=== PATIENT | male | born 1935 | race Caucasian/White ===

== ENCOUNTER 2017-10-04 10:23 | Emergency (ER) | payer BC ==
[~2017-10-04] VITALS: Ht 182.9 cm; Wt 74.8 kg
[~2017-10-04 10:23] MED LIST: CEFA500C2 PO; GLC/500 PO; GLIM1TAB2 PO; METO100T44 PO; MULT-506 PO; SIMV40TA2 PO
[2017-10-04 10:29] VITALS: TEMP 36.9; Ht 182.9 cm; Wt 74.8 kg
[2017-10-04] MEDS ORDERED: ASPI81TA28 PO (11:09)
[2017-10-04] MEDS ORDERED: NTRGSL/4 UT (11:09)
[2017-10-04] MEDS ORDERED: LISI10TA PO (11:09)
[2017-10-04] MEDS ORDERED: ANTIBIOTIC PO (11:11)
--- NOTE | 2017-10-04 11:34 | DIAGNOSTIC IMAGING REPORT ---
CT HEAD WITHOUT CONTRAST (CT) CLINICAL HISTORY: Head pain. Trauma. Closed head injury. COMPARISON STUDY: No previous studies for comparison. TECHNIQUE: Axial CT of the brain is performed from the vertex to the skull base. IV contrast was not administered for this examination. A dose lowering technique was utilized adhering to the principles of ALARA. CT DOSE: 614.27 mGy.cm FINDINGS: No intra or extra-axial mass lesions are visualized. There is no CT evidence of acute cortical infarction. There is no evidence of midline shift. There is no acute hemorrhage. No calvarial fractures are visualized. There are patchy white matter hypodensities likely on a small vessel basis. There is no evidence of pathologic ventricular dilatation. There is no evidence of acute sinusitis. There is a left frontal scalp hematoma and there is left periorbital edema. IMPRESSION: 1. No acute intracranial findings 2. Left frontal scalp hematoma with left periorbital edema Electronically signed by: Brady Cano M.D. 10/04/2017 11:33 AM Dictated Date/Time: 10/04/2017 11:32 AM
[2017-10-04] MEDS ORDERED: DIPHTHERIA/TETANUS/PERTUSSIS 0.5 ML SYR/VIAL IM. ONE (12:00)
[2017-10-04 12:05] VITALS: BP 173/82; PULSE 80; O2SAT 96
--- NOTE | 2017-10-05 12:47 | EMERGENCY ROOM VISIT NOTE ---
History Report prepared by Bryon: [facility] More Under the Supervision of: Dr. Jaqueline Decker M.D. First contact with patient: 10:47 Chief Complaint: FALL Stated Complaint: FELL WITH CUTS AND BRUISES History of Present Illness The patient is an 82 year old male who presents to the Emergency Room with complaints of an episode of a fall that occurred this morning. The patient states he tripped over the stairs and fell. He states his fall is due to the boot on his left foot. The patient reports when he fell he hit his head. He notes that he has multiple scrapes on his arms and legs. The patient denies abdominal pain, head pain, neck pain, back pain, loss of consciousness, pain with deep breathing, and chest discomfort. The patient states he has a history of diabetes and a heart attack 11 years ago. He notes he had stents placed in his heart and was on Coumadin, but no longer is. He notes that he takes a baby Aspirin each day. The patient states that he is unsure if he is up to date on his Tetanus shot. Source of History: patient Onset: this morning Position: arm (bilateral), leg (bilateral) Quality: other (fall, scrapes) Timing: other (episode) Associated Symptoms: No LOC, No neck pain, No chest pain, No abdominal pain , No back pain Note: The patient denies head pain and pain with deep breathing. Review of Systems See HPI for pertinent positives & negatives. A total of 10 systems reviewed and were otherwise negative. Past Medical & Surgical Medical Problems: (1) Osteomyelitis of left foot Family History No pertinent family history Social History Smoking Status: Never Smoker Drug Use: none Marital Status: Housing Status: lives with significant other Occupation Status: retired Current/Historical Medications Scheduled Aspirin (Aspirin Ec), 81 MG PO DAILY Glimepiride (Glimepiride), 1 MG PO DAILY Lisinopril (Prinivil), 10 MG PO DAILY Metformin Hcl (Glucophage), 500 MG PO DAILY Metoprolol Succ (Toprol Xl) (Toprol-Xl ), 150 MG PO BID Multivitamin (Multivitamin), 1 TAB PO DAILY Nitroglycerin (Nitrostat), 0.4 MG UT PRN Simvastatin (Zocor), 40 MG PO QPM [Antibiotic ], 1 TAB PO BID Allergies Coded Allergies: Aminoglycosides (Verified Allergy, Mild, DERMATITIS, 10/04/17) Bacitracin (Verified Allergy, Mild, DERMATITIS, 10/04/17) Neomycin (Verified Allergy, Mild, DERMATITIS, 10/04/17) Polymyxin B (Verified Allergy, Mild, DERMATITIS, 10/04/17) Physical Exam Vital Signs Date Time Temp Pulse Resp B/P (MAP) Pulse Ox O2 Delivery O2 Flow Rate FiO2 10/04/17 12:05 80 18 173/82 96 Room Air 10/04/17 10:29 36.9 90 18 181/83 96 Room Air Physical Exam Vital signs reviewed. General: Well-appearing , in no significant distress. HEENT: No scleral icterus, PERRLA, neck supple. Hematoma above the left eyebrow with a small abrasion. Cardiovascular: Regular rate and rhythm, no extra sounds. Pulmonary: Clear to auscultation bilaterally, normal work of breathing. Abdomen: Soft, nontender, nondistended, positive bowel sounds. Musculoskeletal: Atraumatic, no significant deformity. Cervical, thoracic and lumbar spine are palpated, nontender, no step-off or deformity appreciated. Neurologic: Patient awake alert and oriented x 3, full strength in all 4 extremities. Skin: Warm, dry, no rash. No significant laceration. Multiple abrasions to the left anterior knee. No significant swelling or deformity. Abrasions to the first and second MCPs of the left hand. Medical Decision & Procedures ER Provider Diagnostic Interpretation: Radiology results as stated below per my review and radiologist interpretation: CT HEAD WITHOUT CONTRAST (CT) CLINICAL HISTORY: Head pain. Trauma. Closed head injury. COMPARISON STUDY: No previous studies for comparison. TECHNIQUE: Axial CT of the brain is performed from the vertex to the skull base. IV contrast was not administered for this examination. A dose lowering technique was utilized adhering to the principles of ALARA. CT DOSE: 614.27 mGy.cm FINDINGS: No intra or extra-axial mass lesions are visualized. There is no CT evidence of acute cortical infarction. There is no evidence of midline shift. There is no acute hemorrhage. No calvarial fractures are visualized. There are patchy white matter hypodensities likely on a small vessel basis. There is no evidence of pathologic ventricular dilatation. There is no evidence of acute sinusitis. There is a left frontal scalp hematoma and there is left periorbital edema. IMPRESSION: 1. No acute intracranial findings 2. Left frontal scalp hematoma with left periorbital edema Electronically signed by: Brady Cano M.D. 10/04/2017 11:33 AM Dictated Date/Time: 10/04/2017 11:32 AM Medications Administered Medications (Trade) Dose Ordered Sig/Lisha Route Start Time Stop Time Status Last Admin Dose Admin Diphtheria/ Pertussis/Tetanus Vacc (Adacel Inj) 0.5 ml ONCE ONCE IM. 10/04/17 12:00 10/04/17 12:01 DC 10/04/17 11:59 0.5 ML ED Course 1057: Past medical records reviewed. The patient was evaluated in room C1B. A complete history and physical examination was performed. 1200: Ordered Adacel Inj 0.5 ml IM. 1201: Upon reevaluation, the patient appeared to have improvement of his symptoms. I discussed findings with him. He verbalized agreement of the treatment plan. The patient was discharged home. Medical Decision Differential diagnosis: Intracranial injury, cervical spine injury, intrathoracic injury, intra- abdominal injury, musculoskeletal injury. This patient was evaluated and appeared to be in no significant distress. CT scan of the head was performed and is negative for acute intracranial abnormality. Patient had several abrasions and a hematoma to left forehead. Nursing staff cleanse the wounds and dressed them appropriately. Patient's tetanus status was updated with Adacel 0.5 mL IM. Patient was discharged to the care of his and will follow up with his PCP for reevaluation. He will return to the ED for worsening of symptoms or any medical concerns. Medication Reconcilliation Current Medication List: was personally reviewed by me Blood Pressure Screening Patient's blood pressure: Elevated blood pressure Blood pressure disposition: Referred to PCP Impression Primary Impression: Closed head injury Additional Impressions: Multiple abrasions Fall Scribe Attestation The scribe's documentation has been prepared under my direction and personally reviewed by me in its entirety. I confirm that the note above accurately reflects all work, treatment, procedures, and medical decision making performed by me. Departure Information Dispostion Home / Self-Care Referrals Christiano Lobato M.D. (PCP) Forms HOME CARE DOCUMENTATION FORM, IMPORTANT VISIT INFORMATION Patient Instructions My [facility] Additional Instructions Diagnosis: Closed head injury, multiple abrasions, fall Please read head injury handout. Wash wounds with warm water and a mild soap once daily and apply an antibiotic dressing. Follow-up with your primary care physician this week for reevaluation. Return to the ED for worsening of symptoms or any medical concerns. Problem Qualifiers
== END 2017-10-04 12:19 | disposition home or self-care (01) ==
LOC: C.EDB 10:24 → C.EDC 12:19
DX: S00.12XA Contusion of left eyelid and periocular area, initial encounter (principal); W18.09XA Striking against other object with subsequent fall, initial encounter; E11.9 Type 2 diabetes mellitus without complications; I25.2 Old myocardial infarction; Z95.5 Presence of coronary angioplasty implant and graft; Z79.82 Long term (current) use of aspirin; Z79.84 Long term (current) use of oral hypoglycemic drugs; Z79.899 Other long term (current) drug therapy; Z88.8 Allergy status to other drugs, medicaments and biological substances; S80.212A Abrasion, left knee, initial encounter; S60.512A Abrasion of left hand, initial encounter; Z23 Encounter for immunization

== ENCOUNTER 2018-07-19 10:52 | Inpatient (IN) ==
--- NOTE | 2018-07-19 12:07 | Emergency Department Note ---
ED Provider Note CHIEF COMPLAINT: Upper back and chest pain HISTORY OF PRESENTING ILLNESS: This is a 83-year-old male with past medical history for coronary artery disease status post stenting, hypertension, hyperlipidemia, type 2 diabetes, history of prostate cancer, who presents to the emergency department by private vehicle with his with complaint of left- sided chest pain and right-sided upper back pain that has been ongoing for the past 4 to 5 days. He describes the pain as constant, worse with movements and lying flat, states it feels like a muscle cramp, and rates the pain as 5/10. He has been taking Tylenol and using BenGay topically to the areas of pain, which he reports does help, but states that he continues to have pain. He denies any shortness of breath, cough, hemoptysis, dizziness or syncope. He has been evaluated numerous times over the past week, starting with a fall on 07/11 and head injury. He reports that his head laceration is healing well and he has been doing well since the fall, but this pain has been getting progressively worse. He does have bruising to both shoulders and arms, but denies any bruising to his chest, abdomen, or back. He denies any abdominal pain, nausea or vomiting, diarrhea, urinary complaints, or unusual rash. REVIEW OF SYSTEMS: A complete 10 point review of systems was reviewed with the patient with pertinent positives and negatives as per history of present illness. All else were negative. PAST MEDICAL HISTORY: Reviewed in the chart as listed above in the HPI SOCIAL HISTORY: Lives at home with his , denies tobacco use, admits to occasional alcohol use ALLERGIES: Reviewed in chart PHYSICAL EXAM: CONSTITUTIONAL: Pleasant and cooperative. No acute distress. Well appearing and well nourished. HEENT: Normocephalic. Laceration noted to the scalp, appears to be healing well with no signs of infection. PERRL, EOMI. NECK: Supple, full active range of motion without discomfort. No midline tenderness to palpation of the cervical spine. RESPIRATORY: Clear to auscultation bilaterally with no wheezing, crackles, rhonchi or stridor. Equal expansion bilaterally. CARDIOVASCULAR: Regular rate and rhythm with no murmurs, rubs or gallops. Normal peripheral perfusion. No edema. CHEST WALL: Tender to palpation in the left anterior chest, reproduces complaint. There is also tenderness to palpation in the right shoulder blade area which reproduces complaint. There is mild muscle spasm noted. There is no ecchymosis, swelling, erythema, or palpable crepitus. GASTROINTESTINAL: Soft, nontender, nondistended. No palpable masses or HSM. Bowel sounds present in all quadrants. No CVA tenderness bilaterally. BACK: There is no midline tenderness to palpation of the thoracic or lumbar spine. There is right-sided paraspinous muscle tenderness of the thoracic region along the shoulder blade. MUSCULOSKELETAL: Full range of motion of all joints without discomfort. INTEGUMENTARY: Healing ecchymosis on the right shoulder and left upper arm with scabbed over abrasions, nontender to palpation. No evidence of erythema, warmth, discharge, or streaking. No rash or other significant dermatologic conditions noted. NEUROLOGIC: Alert and oriented X 4 with normal affect. Normal strength and sensation in all 4 extremities. Normal speech. Normal gait observed. ED COURSE AND MEDICAL DECISION MAKING: CC: Patient presenting with complaint of upper back and chest pain DIFFERENTIAL DIAGNOSIS: Includes, but not limited to musculoskeletal pain, muscle spasm, costochondritis, rib fracture, rib contusion, vertebral fracture, pneumothorax, pulmonary contusion, acute coronary syndrome, pneumonia, among others. INTERPRETATION OF LABS: No leukocytosis, mild anemia [], normal platelets, hyponatremia and hypochloremia with hyperglycemia, no other significant electrolyte abnormalities, normal renal function. IMAGING: CT chest wo con CLINICAL HISTORY: Chest pain status post trauma COMPARISON STUDY: No previous studies for comparison. CT DOSE: 295.71 mGy.cm TECHNIQUE: CT of the thorax was performed from the thoracic inlet to the lung bases. Images are reviewed in the axial, sagittal, and coronal planes. IV contrast was not administered for this examination. A dose lowering technique was utilized adhering to the principles of ALARA. FINDINGS: Thyroid: Imaged portions of the thyroid gland are normal in appearance. Thoracic aorta: The ascending thoracic aorta measures 33 mm. There are no periaortic hematoma is identified. Heart: There are coronary artery calcifications. There is no significant pericardial effusion. Lungs and pleural spaces: There is no pneumothorax. There are no pleural effusions. There is no evidence of focal pulmonary consolidation. There are scattered bilateral solid pulmonary nodules, the largest of which measures 3 mm. In a low risk patient, no further follow-up is indicated. Mediastinum: There are borderline enlarged mediastinal lymph nodes. Yoselin: There is no evidence of pathologic hilar adenopathy given the limitations of a noncontrast study Axilla: There is no nodes of pathologic axillary lymphadenopathy Upper abdomen: There is a hiatal hernia. Skeletal structures: There are several old rib deformities. There is an age- indeterminate right fourth anterior rib fracture. There is a T4 vertebral body c ompression fracture. IMPRESSION: 1. No evidence of acute intrathoracic injury given the limitations of a noncontrast study 2. T4 vertebral body compression fracture, likely acute 3. Age-indeterminate right fourth anterior rib fracture EKG: Shows sinus rhythm the rate of 82 bpm, premature atrial complexes, inverted T waves in the anterior leads, when compared to previous EKG from 02/01/2006, appears to be improved by my interpretation. MEDICATION RECONCILIATION: I attest that I have personally reviewed the patient's current medication list. INITIAL VITAL SIGNS REVIEW: I reviewed the patient's initial vital signs and interpret them as follows: T: Afebrile; BP: Hypertensive; HR: Within normal limits; RR: Within normal limits; Pulse Ox: Within normal limits on room air. Blood pressure screening: The patient was found to have an elevated blood pressure and was referred to the inpatient hospitalist team for further management. MDM SUMMARY: Patient was evaluated at bedside, history and physical exam performed. Patient is alert and oriented, no acute distress, resting calmly in stretcher. Patient complains of right shoulder blade pain and left anterior chest wall pain, these areas are reproducible to his complaint. There is no palpable crepitus. He denies any chest pain at rest and denies any shortness of breath, nausea, dizziness, or syncope. Patient does have a remote history of coronary artery disease, given this history I did opt to perform an EKG and troponin to evaluate his complaint of left sided chest pain. Patient did have a fall about 1 week ago, CT of the chest and thoracic spine noncontrast was ordered to evaluate for fractures. Orders were also placed at bedside for baseline labs. Patient declined anything for pain at this time. Patient discussed with Dr. Bustillos, who agrees with my assessment, plan, and disposition. Labs and imaging reviewed as above, mild anemia appears to be baseline. There is mild hyponatremia, which is most likely secondary to his hyperglycemia. Troponin is elevated at 0.325, which is concerning given his complaint of chest pain. EKG was reviewed, noting sinus rhythm with PACs, and some possible ischemic changes in the anterior leads, although when compared to previous EKG it appears that this is greatly improved as he has previously had an anterior HI. Patient complained of increased pain in his chest and back after returning from CT, stating that the pain got worse when he had to lift his arms over his head. He was given a dose of IV fentanyl for his pain. Patient notes that he did not take his aspirin today, he was given a full-strength dose of chewable aspirin given the elevated troponin. CT imaging reviewed, notable for an acute T4 compression fracture and an age- indeterminate right fourth rib fracture, which I suspect are both most likely from his recent fall. Patient reassessed multiple times throughout ED stay, he has remained hemodynamically stable and reports that his pain is improved after the fentanyl. I spoke on the phone with Dr. Bowen, [facility] Hospitalist, who agrees to evaluate the patient for admission. The patient and his were updated on all results and plan for admission, they verbalized understanding and were agreeable to this plan. The patient was stable at time of admission. The chart was completed utilizing [employer] Speech voice recognition software. Grammatical errors, random word insertions, pronoun errors, and incomplete sentences are an occasional consequence of this system due to software limitations, ambient noise, and hardware issues. Any formal questions or concerns about the content, text, or information contained within the body of this dictation should be directly addressed to the nurse practitioner for clarification. Impression & Plan Elevated troponin I level, Compression fracture of T4 vertebra, Closed fracture of rib of right side Past Med/Surg History Medical History Hyponatremia (Chronic) Compression fx, thoracic spine (Acute) NSTEMI (non-ST elevated myocardial infarction) (Acute) Osteomyelitis of left foot (Chronic) Hypertension (Chronic) Hyperlipidemia (Chronic) Diabetes mellitus, type 2 (Chronic) DENIES NEUROPATHY Skin cancer (Resolved) HISTORY OF. 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 (Resolved) Closed head injury (Resolved) Multiple abrasions (Resolved) Surgical History History of cardiac cath (Resolved) 15 YEARS AGO, STENT X1, C, [place] History of tonsillectomy (Resolved) History of radical prostatectomy (Resolved) History of herniorrhaphy (Resolved) Hx of cataract surgery (Resolved) RIGHT Social History Preferred Language: Hungarian Communication Ability: Effective Beliefs That Will Affect Care: None Current Living Situation: Spouse Feels Safe at Home: Yes Smoking Status: Never smoker Second Hand Exposure: No Hx Alcohol Use: Yes Alcohol type: beer Hx Substance Use: No Results & Data Vital Signs Vital Signs - 24 hr 07/19/18 11:08 07/19/18 12:51 07/19/18 13:19 Temperature 37.2 C Temperature Source Oral Sepsis Recent Fever Within 48 Hours No Sepsis New/Unexplained Change in Mental Status No Sepsis Action Taken by Nursing No Action Required Pulse Rate 85 Pulse Rate [Apical] 83 77 Pulse Rate from SpO2 Sensor Respiratory Rate 17 22 20 Respiratory Effort / Characteristics Non-Labored Non-Labored Spontaneous Respiratory Depth Normal Normal Respiratory Pattern Regular Regular Blood Pressure 165/75 H Blood Pressure [Right Arm] 186/79 H 136/68 Blood Pressure Mean 105 Blood Pressure Mean [Right Arm] 114 90 Blood Pressure Position Sitting Pulse Oximetry 100 98 99 Oxygen Delivery Method Room Air Room Air Room Air 07/19/18 13:46 07/19/18 14:01 Temperature Temperature Source Sepsis Recent Fever Within 48 Hours Sepsis New/Unexplained Change in Mental Status Sepsis Action Taken by Nursing Pulse Rate 79 74 Pulse Rate [Apical] Pulse Rate from SpO2 Sensor 80 74 Respiratory Rate 16 17 Respiratory Effort / Characteristics Respiratory Depth Respiratory Pattern Blood Pressure 165/77 H 158/74 H Blood Pressure [Right Arm] Blood Pressure Mean 106 102 Blood Pressure Mean [Right Arm] Blood Pressure Position Pulse Oximetry 97 98 Oxygen Delivery Method Laboratory Data Result diagrams: 07/19/18 12:10 07/19/18 12:10 Lab Results 07/19/18 07/19/18 07/19/18 Range/Units 12:10 12:10 13:18 WBC 7.16 (4.8-10.8) K/uL RBC 4.00 L (4.7-6.1) M/uL Hgb 12.5 L (14.0-18.0) g/dL Hct 36.8 L (42-52) % MCV 92.0 (80-100) fL MCH 31.3 (25-34) pg MCHC 34.0 (32-36) g/dL RDW Std Deviation 43.7 (36.4-46.3) fL RDW Coeff of Alexandre 13.1 (11.5-14.5) % Plt Count 303 (130-400) K/uL MPV 9.5 (7.4-10.4) fL Immature Gran % (Auto) 0.3 % Neut % (Auto) 79.6 % Lymph % (Auto) 11.0 % [place] % (Auto) 8.4 % Eos % (Auto) 0.6 % Baso % (Auto) 0.1 % Immature Gran # (Auto) 0.02 (0.00-0.02) K/uL Neut # (Auto) 5.70 (1.4-6.5) K/uL Lymph # (Auto) 0.79 L (1.2-3.4) K/uL [place] # (Auto) 0.60 H (0.11-0.59) K/uL Eos # (Auto) 0.04 (0-0.5) K/uL Baso # (Auto) 0.01 (0-0.2) K/uL PT 11.2 (9.0-12.0) Seconds INR 1.1 (0.9-1.1) APTT 27.5 (21.0-31.0) Seconds PTT Ratio 1.0 Sodium 130 L (136-145) mmol/L Potassium 4.6 (3.5-5.1) mmol/L Chloride 96 L (98-107) mmol/L Carbon Dioxide 27 (21-32) mmol/L Anion Gap 7.0 (3-11) BUN 12 (7-18) mg/dl Creatinine 0.80 (0.6-1.4) mg/dl Est Cr Clr Drug Dosing 73.3 ml/min Est GFR ( Amer) 96.4 Est GFR (Non-Af Amer) 83.2 BUN/Creatinine Ratio 14.8 (10-20) Glucose 250 H (70-99) mg/dl Calcium 9.0 (8.5-10.1) mg/dl Troponin I 0.325 H* (0-0.045) ng/ml Specimen Hemolysis Administered Medications Discontinued Medications Aspirin (Aspirin) 324 mg PO NOW STA Stop: 07/19/18 13:49 Last Admin: 07/19/18 13:53 Dose: 324 mg Documented by: [id number] Fentanyl Citrate (Fentanyl Citrate) 50 mcg IV NOW STA Stop: 07/19/18 13:11 Last Admin: 07/19/18 13:23 Dose: 50 mcg Documented by: [id number] Discharge Plan Visit Data Chief Complaint: Back Injury/Pain Stated Complaint: MUSCLE PAIN ED Provider: Kelby Bustillos ED Midlevel Provider: Joleen Brenner Discharge Problem: Elevated troponin I level, Compression fracture of T4 vertebra, Closed fracture of rib of right side Patient Disposition: Admitted As Inpatient Condition: Good Forms Stand Alone Forms: [facility] Prescriptions Prescriptions: No Action multivitamin Tablet 1 tab PO QAM RF: 0 metoprolol tartrate 100 mg Tablet 150 mg PO BID RF: 0 aspirin [Aspir-81] 81 mg Tablet,Delayed Release (Dr/Ec) 81 mg PO DAILY RF: 0 simvastatin [Zocor] 40 mg Tablet 40 mg PO PM RF: 0 glimepiride 1 mg Tablet 1 mg PO QAM RF: 0 lisinopril 10 mg Tablet 10 mg PO DAILY RF: 0 nitroglycerin 0.4 mg Tablet, Sublingual 1 tab Sublingual UD PRN (Reason: Chest Pain) RF: 0 acetaminophen [Tylenol Extra Strength] 500 mg Tablet 1,000 mg PO Q6H PRN (Reason: Pain) RF: 0 Referrals Referrals: Christiano Lobato MD [Primary Care Provider] - Discharge Problem: Closed fracture of rib of right side Qualifiers: Encounter type: initial encounter Rib fracture type: single rib Qualified Code(s): S22.31XA - Fracture of one rib, right side, initial encounter for closed fracture
[2018-07-19 12:20] LABS: Basophils # (auto) 0.01 K/uL (0-0.2); Basophils % (auto) 0.1 %; Eosinophils # (auto) 0.04 K/uL (0-0.5); Eosinophils % (auto) 0.6 %; Hematocrit (blood only) 36.8 % (42-52); Hemoglobin 12.5 g/dL (14.0-18.0); Immature Granulocytes # (auto) 0.02 K/uL (0.00-0.02); Immature Granulocytes % (auto) 0.3 %; Lymphocytes # (auto) 0.79 K/uL (1.2-3.4); Mean Platelet Volume 9.5 fL (7.4-10.4); Monocytes % (auto) 8.4 %; Neutrophils % (auto) 79.6 %; Platelet Count 303 K/uL (130-400); RDW Coefficient of Variation 13.1 % (11.5-14.5); RDW Standard Deviation 43.7 fL (36.4-46.3); White Blood Count 7.16 K/uL (4.8-10.8)
[2018-07-19 12:38] LABS: BUN Creatinine Ratio 14.8 (10-20); Creatinine Clr Calc Pharmacy 73.3 ml/min; Est GFR (African American) 96.4; Est GFR (Non-African American) 83.2; Potassium 4.6 mmol/L (3.5-5.1)
[2018-07-19 12:43] LABS: Troponin I 0.325 ng/ml (0-0.045)
[2018-07-19] MEDS ORDERED: fentaNYL citrate 100 MCG/2 ML VIAL IV STA (13:10)
--- NOTE | 2018-07-19 13:14 | CT Scan Report ---
CT chest wo con CLINICAL HISTORY: Chest pain status post trauma COMPARISON STUDY: No previous studies for comparison. CT DOSE: 295.71 mGy.cm TECHNIQUE: CT of the thorax was performed from the thoracic inlet to the lung bases. Images are revi ewed in the axial, sagittal, and coronal planes. IV contrast was not administered for this examinatio n. A dose lowering technique was utilized adhering to the principles of ALARA. FINDINGS: Thyroid: Imaged portions of the thyroid gland are normal in appearance. Thoracic aorta: The ascending thoracic aorta measures 33 mm. There are no periaortic hematoma is iden tified. Heart: There are coronary artery calcifications. There is no significant pericardial effusion. Lungs and pleural spaces: There is no pneumothorax. There are no pleural effusions. There is no evide nce of focal pulmonary consolidation. There are scattered bilateral solid pulmonary nodules, the larg est of which measures 3 mm. In a low risk patient, no further follow-up is indicated. Mediastinum: There are borderline enlarged mediastinal lymph nodes. Yoselin: There is no evidence of pathologic hilar adenopathy given the limitations of a noncontrast stud y Axilla: There is no nodes of pathologic axillary lymphadenopathy Upper abdomen: There is a hiatal hernia. Skeletal structures: There are several old rib deformities. There is an age-indeterminate right fourt h anterior rib fracture. There is a T4 vertebral body compression fracture. IMPRESSION: 1. No evidence of acute intrathoracic injury given the limitations of a noncontrast study 2. T4 vertebral body compression fracture, likely acute 3. Age-indeterminate right fourth anterior rib fracture Electronically signed by: Brady Cano M.D. 07/19/2018 1:13 PM
--- NOTE | 2018-07-19 13:18 | CT Scan Report ---
CT thoracic spine wo con CT DOSE: CLINICAL HISTORY: Back pain status post trauma TECHNIQUE: Helical images were acquired in the transverse plane. Sagittal and coronal reformatted azalea ges were acquired. A dose lowering technique was utilized adhering to the principles of ALARA. COMPARISON STUDY: None. FINDINGS: There is a T4 compression fracture demonstrating 67% loss in height centrally. This is like ly acute. No additional acute fractures are visualized. There are no subluxations. There are no pleur al effusions. There is no pneumothorax. There are borderline enlarged mediastinal lymph nodes. IMPRESSION: 1. T4 compression fracture demonstrating 67% loss in height. Electronically signed by: Brady Cano M.D. 07/19/2018 1:17 PM
--- NOTE | 2018-07-19 13:30 | Emergency Department Note ---
ED Visit Note Patient was seen by our PA/VEST BUSHELER. I was involved in the patient's care and did evaluate the patient myself. I was involved in the care throughout the ER stay. The patient presents with rib and back pain. Work-up demonstrates a compression fracture of T4 that appears acute. No rib fracture. His EKG shows some subtle changes compared to previous EKGs however, I actually think today's EKG appears improved. Patient does have an elevation to his troponin. With the findings of the compression fracture, with the elevated troponin and his recent history, I do think a hospital stay is warranted. The hospitalist has been consulted. .
[2018-07-19] MEDS ORDERED: ASPIRIN CHEW 324 MG PO STA (13:48)
[2018-07-19 13:56] LABS: INR 1.1 (0.9-1.1); Partial Thromboplastin Time 27.5 Seconds (21.0-31.0); Prothrombin Time 11.2 Seconds (9.0-12.0)
--- NOTE | 2018-07-19 14:37 | History & Physical Report ---
Date of Service July 19, 2018 Assessment & Plan (1) NSTEMI (non-ST elevated myocardial infarction): Telemetry. Continue aspirin, metoprolol, statin therapy. Serial troponin enzymes. Cardiac echo. Obtain cardiology consultation. Lovenox 1 mg/kg subcutaneously every 12 hours for now Present on Admission?: Yes (2) Compression fx, thoracic spine: Supportive care. Orthopedic consultation Present on Admission?: Yes (3) Diabetes mellitus, type 2: ADA diet. Sliding-scale insulin coverage Present on Admission?: Yes (4) Hypertension: Treated with lisinopril and metoprolol Present on Admission?: Yes (5) Hyponatremia: Fluid restriction. Check serum and urine osmolarity. Serial lab studies Present on Admission?: Yes History of Present Illness Chief Complaint: Chest pain, back pain Primary Care Provider: Christiano Lobato MD 83-year-old male with a history of previous myocardial infarction with stent placement in 2005. He fell recently on July 11 suffering a right frontal forehead scalp laceration that required hiral. For the past for 5 days he has noted upper back pain and intermittent left chest discomfort that occurs both at rest and with exertion. He denies associated shortness of breath or diaphoresis. He denies palpitations. He is a poor historian. His EKG is abnormal with normal sinus rhythm, frequent PACs, septal ST elevation, septal T wave inversion. Troponin is 0.325. He may have suffered a non-STEMI. In addition, he has evidence of acute T4 compression fracture and right fourth rib fracture. He denies any recent cardiac evaluation. He is hemodynamically stable. Will be admitted for further evaluation and treatment of both the suspected non-STEMI and acute T4 compression fracture. He requests a DNR status. Allergies Allergy/AdvReac Type Severity Reaction Status Date / Time Aminoglycosides Allergy Mild DERMATITIS Verified 07/14/18 05:27 bacitracin Allergy Mild DERMATITIS Verified 07/14/18 05:27 neomycin Allergy Mild DERMATITIS Verified 07/14/18 05:27 polymyxin B Allergy Mild DERMATITIS Verified 07/14/18 05:27 Home Medications Home Medications Medication Instructions Recorded Confirmed Type aspirin [Aspir-81] 81 mg PO DAILY 12/02/17 07/19/18 History glimepiride 1 mg PO QAM 12/02/17 07/19/18 History lisinopril 10 mg PO DAILY 12/02/17 07/19/18 History metoprolol tartrate 150 mg PO BID 12/02/17 07/19/18 History multivitamin 1 tab PO QAM 12/02/17 07/19/18 History nitroglycerin 1 tab SUBLINGUAL UD PRN 12/02/17 07/19/18 History simvastatin [Zocor] 40 mg PO PM 12/02/17 07/19/18 History acetaminophen [Tylenol Extra 1,000 mg PO Q6H PRN 07/14/18 07/19/18 History Strength] Past Med/Surg History Social History Preferred Language: South Korean Communication Ability: Effective Beliefs That Will Affect Care: None Current Living Situation: Spouse Feels Safe at Home: Yes Smoking Status: Never smoker Second Hand Exposure: No Hx Alcohol Use: Yes Alcohol type: beer Hx Substance Use: No Review of Systems Review of Systems: All systems reviewed & are unremarkable except as noted in HPI & below Physical Exam Constitutional: WD/WN, vitals as above Eyes: PERRL, conjunctivae normal, anicteric sclerae ENMT: external ear and nose normal, oropharynx normal Neck: trachea midline, no thyromegaly Respiratory: normal respiratory effort, lungs clear to auscultation Cardiovascular: Bigeminy rhythm which appears to be atrial bigeminy. No audible murmurs. Gastrointestinal (Abdomen): normal bowel sounds, soft, nontender, no hepatosplenomegaly Musculoskeletal: no cyanosis or clubbing, extremities motor strength 5/5 Skin: no rashes, warm and dry Right forehead scalp wound has been stable since July 11 and is healing without incident Neurologic: CN's II-XI intact bilaterally and moves all extremities; no focal motor deficits Results & Data Vital Signs (Past 12 Hours) Vital Signs Temp Pulse Pulse Resp BP BP Pulse Ox 07/19/18 14:01 74 17 158/74 H 98 07/19/18 13:46 79 16 165/77 H 97 07/19/18 13:19 77 20 136/68 99 07/19/18 12:51 83 22 186/79 H 98 07/19/18 11:08 37.2 C 85 17 165/75 H 100 Laboratory Results 07/19/18 12:10 07/19/18 12:10
[2018-07-19] MEDS ORDERED: ONDANSETRON INJ 2 MG/ML 2 ML VIAL IV PRN (15:20)
[2018-07-19] MEDS ORDERED: NITROGLYCERIN SL 0.4 MG/TAB TAB SL PRN ×2 (15:20)
[2018-07-19] MEDS ORDERED: ENOXAPARIN 1 MG/KG SC SCH (15:20)
[2018-07-19] MEDS ORDERED: ALUMINUM/MAGNESIUM SUSP 30 ML UDC PO PRN (15:20)
--- NOTE | 2018-07-19 15:45 | XRay Report ---
XR chest 1V portable CLINICAL HISTORY: Myocardial infarction COMPARISON STUDY: 07/14/2018 FINDINGS: The cardiac and mediastinal contours are normal. There is no evidence of focal pulmonary co nsolidation. There is no evidence of failure. No pleural effusions are visualized.[ IMPRESSION: No active disease in the chest. Electronically signed by: Brady Cano M.D. 07/19/2018 3:44 PM
[2018-07-19] MEDS ORDERED: ENOXAPARIN 80 MG/0.8 ML SYR SQ SCH (16:00)
[2018-07-19 18:15] LABS: INR 1.1 (0.9-1.1); Prothrombin Time 11.2 Seconds (9.0-12.0)
[2018-07-19] MEDS: SIMVASTATIN 40 MG TAB PO SCH (20:36)
[2018-07-19] MEDS: METOPROLOL TARTRATE 100 MG TAB PO SCH (20:36)
[2018-07-20] MEDS: ACETAMINOPHEN 500 MG TAB PO PRN ×2 (04:52→23:39)
[2018-07-20] MEDS: ENOXAPARIN 80 MG/0.8 ML SYR SQ SCH ×2 (06:19→18:52)
[2018-07-20 06:57] LABS: Hematocrit (blood only) 35.1 % (42-52); Hemoglobin 12.3 g/dL (14.0-18.0); Mean Corpuscular Volume 90.7 fL (80-100); Mean Platelet Volume 9.1 fL (7.4-10.4); Platelet Count 311 K/uL (130-400); RDW Standard Deviation 42.6 fL (36.4-46.3); Red Blood Count 3.87 M/uL (4.7-6.1); White Blood Count 7.11 K/uL (4.8-10.8)
[2018-07-20 07:26] LABS: BUN Creatinine Ratio 14.9 (10-20); Calcium 8.7 mg/dl (8.5-10.1); Est GFR (African American) 104.4; Potassium 4.3 mmol/L (3.5-5.1)
[2018-07-20] MEDS: LISINOPRIL 10 MG TAB PO SCH (07:56)
[2018-07-20] MEDS: METOPROLOL TARTRATE 100 MG TAB PO SCH ×2 (07:57→20:57)
[2018-07-20] MEDS: MULTIVITAMIN TAB PO SCH (07:58)
[2018-07-20] MEDS: ASPIRIN 81 MG ECTAB PO SCH (07:58)
[2018-07-20] MEDS ORDERED: GLUCOSE 40% GEL 15 GM TUBE PO PRN (12:00)
[2018-07-20] MEDS ORDERED: GLUCOSE 10 TABS/TUBE PO PRN (12:00)
[2018-07-20] MEDS ORDERED: GLUCAGON FOR INJ 1 MG VIAL IM PRN (12:00)
[2018-07-20] MEDS ORDERED: CARBOHYDRATES FOR HYPOGLYCEMIA PO PRN (12:00)
[2018-07-20] MEDS ORDERED: DEXTROSE 50% 50 ML SYRINGE IV PRN (12:00)
--- NOTE | 2018-07-20 12:16 | Consultation Report ---
DATE OF ADMISSION: 07/19/2018 CHIEF COMPLAINT: Rib pain. HISTORY OF PRESENT ILLNESS: Fernando is delightful. He is 83, suffered a fall July 11 of this year, so about 10 days ago, suffered an injury to his scalp injury with a laceration along with rib fracture. Through the workup, it was determined he had a compression fracture of the thoracic T4 vertebrae which was verified on his CT scan. He interestingly has very minimal pain and no discomfort and no deficit. I suppose, it is new, although again using these, compression fractures are somewhat painful. His rib pain is the dominant complaint from an orthopedic standpoint. PAST MEDICAL HISTORY: Positive for hypertension, hyponatremia, diabetes, possible myocardial infarction. ALLERGIES: Listed. MEDICATIONS: Aspirin, lisinopril, metoprolol, multivitamin, nitroglycerin, Zocor. SOCIAL HISTORY: He lives at home. Speaks German. No alcohol, tobacco. REVIEW OF SYSTEMS: He denies any blurred vision, double vision, tinnitus or vertigo. Denies any chest pain in reference to his cart. Does have some rib pain. Denies shortness of breath, nausea, vomiting. OBJECTIVE: GENERAL: He is alert, oriented. VITAL SIGNS: Stable. MUSCULOSKELETAL: His scalp laceration easily visible. He has no real significant pain in the thoracic area. NEUROLOGICAL: He is neurologically intact. Vital signs also stable as stated. ABDOMEN: Soft, nontender. EXTREMITIES: Intact. IMAGES: Demonstrated acute or subacute compression fracture, T4 vertebrae. PLAN: I have ordered a back brace for him, it is called a TLSO. This may be a little bit overkill. I told the patient and his if the information security officer comes up and fits him for a brace and he feels it will be too uncomfortable and not really helpful, he can certainly decline the order for the brace. I should see him back in the office in approximately 2-3 weeks. I will check on him again tomorrow which will be 21 of July.
[2018-07-20] MEDS: INSULIN ASPART 100 UNITS/ML 3 ML PEN SC SCH ×3 (12:22→20:56)
--- NOTE | 2018-07-20 13:22 | Hospitalist Progress Note ---
Date of Service July 20, 2018 Assessment & Plan (1) NSTEMI (non-ST elevated myocardial infarction): - troponin peaked at 0.324 and trended down. Echo with EF 55%, akinesis of the distal inferoseptum and apical septum. - Continue aspirin, metoprolol, statin therapy. - Lovenox 1 mg/kg subcutaneously every 12 hours for now - cardiology consult (2) Compression fx, thoracic spine: Supportive care. Orthopedic consultation - to be fitted for brace (3) Diabetes mellitus, type 2: ADA diet. Sliding-scale insulin coverage (4) Hypertension: Treated with lisinopril and metoprolol (5) Hyponatremia: Fluid restriction. Check serum and urine osmolarity. Serial lab studies (6) Fall: 07/11 - mechanical PT/OT Sutures/hiral over scalp laceration can be removed. Subjective Mr. Goodman reports feeling more comfortable today. He is having pain around his left axillary ribs but otherwise feels ok. SR on the monitor Review of Systems Review of Systems: All systems reviewed & are unremarkable except as noted in HPI & below Results & Data Vital Signs (Past 12 Hours) Vital Signs Temp Pulse Pulse Resp BP Pulse Ox 07/20/18 11:02 37.3 C 64 20 159/75 H 97 07/20/18 08:00 71 07/20/18 07:16 36.8 C 67 18 147/70 H 99 07/20/18 06:19 64 142/65 H 07/20/18 04:00 36.6 C 70 18 179/81 H 99
--- NOTE | 2018-07-20 15:42 | Cardiology Consultation ---
Date of Consultation July 20, 2018 Assessment & Plan (1) Elevated troponin I level: Pt is an 83yo gentleman with a PMHx of HTN, PAD and CAD s/p PCI with stent placement 15 years prior who is presenting with left sided lower chest pain and back pain of many days duration. -Chest pain not in precordial area, appears to be more lower rib related. -Normal Echo, telemetry shows sinus rhythm with PACs. -EKGs with sinus rhythm and anterior t-wave inversions; NO evidence of STEMI; markedly improved compared to prior years. -Mild troponin elevation currently downtrending, likely due to stressful events surrounding this pt's presentation after mechanical fall. -Continue aspirin -Continue statin, beta maryam and RIO use. -No changes to current medication regimen required. -Followup with Cardiology office upon discharge. -Thank you for allowing us to participate in this patient's care while hospitalized. Supervising Physician Co-Signing Physician Notes Patient seen and examined and discussed with Dr. Hdez. Mr. Goodman is known to me from the outpatient setting. He has longstanding CAD with prior WI and severe LE PAD. Patient had a mechanical fall 2 weeks ago with resulting scalp laceration. Aspirin held. He returned yesterday due to persistent back, left side and chest pain keeping him from sleeping. Imaging on presentation showed rib fracture and compression fracture. ECG showed sinus rhythm with PACs and old anterior TWIs. Trop minimal elevated and down- trending. Today patient chest pain free and overall pain reasonably controlled. Echo showed preserved LV function with no new regional wall motion abnormalities. On exam well perfused with no edema. Going forward suspicion for ACS is very low. Do not feel additional cardiac testing indicated. Ok for discharge from a cardiac standpoint when other medical issues stable. Discharge back on Aspirin, statin and prior antihypertensives. History of Present Illness Reason for Consultation: Chest pain, elevated troponins Requesting Physician: Dr. Fito Bowen Attending Physician: Mingo Anthony MD History of Present Illness Pt is an 83yo gentleman with a PMHx of HTN, PAD and CAD s/p PCI with stent dipesh cement presenting with a history of left sided lower chest and back pain of many days duration. Of note pt had a mechanical fall about 2 weeks prior where he had a repaired laceration to his scalp. Imaging yesterday showed a T4 vertebral fracture and a right sided rib fracture. States he presented yesterday with the complaints of back and chest pain after having difficulty sleeping. Had no associated SOB, palpitations, diaphoresis, N/V. Currently denies chest/back pain. Allergies Allergy/AdvReac Type Severity Reaction Status Date / Time Aminoglycosides Allergy Mild DERMATITIS Verified 07/14/18 05:27 bacitracin Allergy Mild DERMATITIS Verified 07/14/18 05:27 neomycin Allergy Mild DERMATITIS Verified 07/14/18 05:27 polymyxin B Allergy Mild DERMATITIS Verified 07/14/18 05:27 Home Medications Home Medications Medication Instructions Recorded Confirmed Type aspirin [Aspir-81] 81 mg PO DAILY 12/02/17 07/19/18 History glimepiride 1 mg PO QAM 12/02/17 07/19/18 History lisinopril 10 mg PO DAILY 12/02/17 07/19/18 History metoprolol tartrate 150 mg PO BID 12/02/17 07/19/18 History multivitamin 1 tab PO QAM 12/02/17 07/19/18 History nitroglycerin 1 tab SUBLINGUAL UD PRN 12/02/17 07/19/18 History simvastatin [Zocor] 40 mg PO PM 12/02/17 07/19/18 History acetaminophen [Tylenol Extra 1,000 mg PO Q6H PRN 07/14/18 07/19/18 History Strength] Patient History Medical History Hyponatremia (Chronic) Compression fx, thoracic spine (Acute) NSTEMI (non-ST elevated myocardial infarction) (Acute) Osteomyelitis of left foot (Chronic) Hypertension (Chronic) Hyperlipidemia (Chronic) Diabetes mellitus, type 2 (Chronic) DENIES NEUROPATHY Skin cancer (Resolved) HISTORY OF. 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 Beliefs That Will Affect Care: None marital status: Current Living Situation: Spouse Other Information That Helps Us Care for You: No Feels Safe at Home: Yes Safety Concerns: Feels Safe At This Time Smoking Status: Never smoker Do You Dip or Chew Tobacco: No Second Hand Exposure: No Tobacco Cessation Education Requested by Patient: No Hx Alcohol Use: Yes Alcohol type: beer Hx Substance Use: No Review of Systems Respiratory: no dyspnea Cardiovascular: no chest pain, no palpitations and no lightheadedness Musculoskeletal: no back pain Neurologic: no headache(s) Physical Exam Physical Exam: General: Alert, oriented. Sitting up in bed. HEENT: Closed nonbleeding laceration in right frontotemporal area. Chest: Nontender to palpation especially over the ribs bilaterally. CV: RRR, Normal s1, s2. No murmurs appreciated Resp: Breath sounds clear bilaterally, no increased effort of breathing. Abdomen: Soft, nontender, nondistended. No guarding. No organomegaly appreciated. Extremities: Bruising on left knee, no edema. No calf tenderness bilaterally. DP pulses nonpalpable bilaterally. Results & Data Vital Signs (Past 12 Hours) Vital Signs Temp Pulse Pulse Resp BP Pulse Ox 07/20/18 14:33 37.2 C 64 18 134/69 96 07/20/18 11:02 37.3 C 64 20 159/75 H 97 07/20/18 08:00 71 07/20/18 07:16 36.8 C 67 18 147/70 H 99 07/20/18 06:19 64 142/65 H 07/20/18 04:00 36.6 C 70 18 179/81 H 99 Laboratory Results Laboratory Results - last 24 hr 07/19/18 07/19/18 07/19/18 16:12 16:30 17:52 WBC RBC Hgb Hct MCV MCH MCHC RDW Std Deviation RDW Coeff of Alexandre Plt Count MPV PT INR Sodium Potassium Chloride Carbon Dioxide Anion Gap BUN Creatinine Est Cr Clr Drug Dosing Est GFR ( Amer) Est GFR (Non-Af Amer) BUN/Creatinine Ratio Glucose POC Glucose 154 H Calcium Troponin I 0.324 H* Urine Osmolality 344 L 07/19/18 07/19/18 07/20/18 17:52 20:33 00:12 WBC RBC Hgb Hct MCV MCH MCHC RDW Std Deviation RDW Coeff of Alexandre Plt Count MPV PT 11.2 INR 1.1 Sodium Potassium Chloride Carbon Dioxide Anion Gap BUN Creatinine Est Cr Clr Drug Dosing Est GFR ( Amer) Est GFR (Non-Af Amer) BUN/Creatinine Ratio Glucose POC Glucose 140 H Calcium Troponin I 0.299 H* Urine Osmolality 07/20/18 07/20/18 07/20/18 06:39 06:39 06:39 WBC 7.11 RBC 3.87 L Hgb 12.3 L Hct 35.1 L MCV 90.7 MCH 31.8 MCHC 35.0 RDW Std Deviation 42.6 RDW Coeff of Alexandre 13.0 Plt Count 311 MPV 9.1 PT INR Sodium 131 L Potassium 4.3 Chloride 98 Carbon Dioxide 27 Anion Gap 6.0 BUN 10 Creatinine 0.66 Est Cr Clr Drug Dosing 89.0 Est GFR ( Amer) 104.4 Est GFR (Non-Af Amer) 90.0 BUN/Creatinine Ratio 14.9 Glucose 142 H POC Glucose Calcium 8.7 Troponin I 0.206 H* Urine Osmolality 07/20/18 07/20/18 07:07 11:05 WBC RBC Hgb Hct MCV MCH MCHC RDW Std Deviation RDW Coeff of Alexnadre Plt Count MPV PT INR Sodium Potassium Chloride Carbon Dioxide Anion Gap BUN Creatinine Est Cr Clr Drug Dosing Est GFR ( Amer) Est GFR (Non-Af Amer) BUN/Creatinine Ratio Glucose POC Glucose 152 H 163 H Calcium Troponin I Urine Osmolality Medications Administered Home Medications aspirin [Aspir-81] 81 mg PO DAILY 12/02/17 [History Confirmed 07/19/18] glimepiride 1 mg PO QAM 12/02/17 [History Confirmed 07/19/18] lisinopril 10 mg PO DAILY 12/02/17 [History Confirmed 07/19/18] metoprolol tartrate 150 mg PO BID 12/02/17 [History Confirmed 07/19/18] multivitamin 1 tab PO QAM 12/02/17 [History Confirmed 07/19/18] nitroglycerin 1 tab SUBLINGUAL UD PRN 12/02/17 [History Confirmed 07/19/18] simvastatin [Zocor] 40 mg PO PM 12/02/17 [History Confirmed 07/19/18] acetaminophen [Tylenol Extra Strength] 1,000 mg PO Q6H PRN 07/14/18 [History Confirmed 07/19/18] Active Medications Acetaminophen (Tylenol) 1,000 mg PO Q6H PRN PRN Reason: Pain Stop: 08/18/18 15:19 Last Admin: 07/20/18 04:52 Dose: 1,000 mg Documented by: Al Hydrox/Mg Hydrox/Simethicone (Maalox) 15 ml PO Q4H PRN PRN Reason: Dyspepsia Stop: 08/18/18 15:19 Aspirin (Ecotrin Ectab) 81 mg PO DAILY CARLO Stop: 08/19/18 08:59 Last Admin: 07/20/18 07:58 Dose: 81 mg Documented by: Dextrose (Dextrose 50%) 25 - 50 ml IV UD PRN; Protocol PRN Reason: Hypoglycemia Protocol Stop: 08/19/18 11:59 Enoxaparin Sodium (Lovenox) 70 mg SQ Q12H CARLO Stop: 08/19/18 05:59 Last Admin: 07/20/18 06:19 Dose: 70 mg Documented by: Glucagon (Glucagen) 1 mg IM UD PRN; Protocol PRN Reason: Hypoglycemia Protocol Stop: 08/19/18 11:59 Glucose (Glucose 40%) 15 - 30 gm PO UD PRN; Protocol PRN Reason: Hypoglycemia Protocol Stop: 08/19/18 11:59 Glucose (Dex4 Glucose) 4 - 8 tabs PO UD PRN; Protocol PRN Reason: Hypoglycemia Protocol Stop: 08/19/18 11:59 Insulin Aspart (Novolog Flexpen) 0 units SC ACHS [facility] Stop: 08/19/18 11:29 Last Admin: 07/20/18 12:22 Dose: 1 units Documented by: Lisinopril (Zestril) 10 mg PO DAILY CARLO Stop: 08/19/18 08:59 Last Admin: 07/20/18 07:56 Dose: 10 mg Documented by: Metoprolol Tartrate (Lopressor) 150 mg PO BID [facility] Stop: 08/18/18 20:59 Last Admin: 07/20/18 07:57 Dose: 150 mg Documented by: Miscellaneous (Carbohydrates For Hypoglycemia) 15 - 30 gm PO UD PRN PRN Reason: Hypoglycemia Treatment Stop: 08/19/18 11:59 Multivitamins (Multivitamin Tab) 1 tab PO QAM CARLO Stop: 08/19/18 08:59 Last Admin: 07/20/18 07:58 Dose: 1 tab Documented by: Nitroglycerin (Nitrostat) 0.4 mg SL UD PRN PRN Reason: Chest Pain Stop: 08/18/18 15:19 Ondansetron HCl (Zofran) 4 mg IV Q6H PRN PRN Reason: Nausea Stop: 08/18/18 15:19 Simvastatin (Zocor) 40 mg PO PM CARLO Stop: 08/18/18 20:59 Last Admin: 07/19/18 20:36 Dose: 40 mg Documented by:
[2018-07-20] MEDS: SIMVASTATIN 40 MG TAB PO SCH (20:58)
[2018-07-21] MEDS: METOPROLOL TARTRATE 100 MG TAB PO SCH (07:39)
[2018-07-21] MEDS: MULTIVITAMIN TAB PO SCH (07:39)
[2018-07-21] MEDS: LISINOPRIL 10 MG TAB PO SCH (07:39)
[2018-07-21] MEDS: ASPIRIN 81 MG ECTAB PO SCH (07:39)
[2018-07-21] MEDS: INSULIN ASPART 100 UNITS/ML 3 ML PEN SC SCH ×2 (07:44→12:48)
[2018-07-21 07:59] LABS: BUN Creatinine Ratio 18.6 (10-20); Calcium 8.5 mg/dl (8.5-10.1); Est GFR (African American) 105.7; Est GFR (Non-African American) 91.2; Potassium 4.2 mmol/L (3.5-5.1)
[2018-07-21] MEDS ORDERED: ENOXAPARIN INJ 40 MG/0.4 ML SYR SQ SCH (09:00)
--- NOTE | 2018-07-21 12:20 | Discharge Summary ---
Date of Service July 21, 2018 Admission HPI Per Admitting Provider 83-year-old male with a history of previous myocardial infarction with stent placement in 2005. He fell recently on July 11 suffering a right frontal forehead scalp laceration that required hiral. For the past for 5 days he has noted upper back pain and intermittent left chest discomfort that occurs both at rest and with exertion. He denies associated shortness of breath or diaphoresis. He denies palpitations. He is a poor historian. His EKG is abnormal with normal sinus rhythm, frequent PACs, septal ST elevation, septal T wave inversion. Troponin is 0.325. He may have suffered a non-STEMI. In addition, he has evidence of acute T4 compression fracture and right fourth rib fracture. He denies any recent cardiac evaluation. He is hemodynamically stable. Will be admitted for further evaluation and treatment of both the suspected non-STEMI and acute T4 compression fracture. He requests a DNR status. Principal Diagnosis Chest pain Discharge Exam Constitutional WD/WN, vitals as above Cardiovascular RRR, no murmur, no edema Gastrointestinal (Abdomen) normal bowel sounds, soft, nontender, no hepatosplenomegaly Musculoskeletal no cyanosis or clubbing, extremities motor strength 5/5 Skin no rashes, warm and dry Neurologic moves all extremities and awake Psychiatric A+Ox3, euthymic affect Discharge Data Allergies Allergy/AdvReac Type Severity Reaction Status Date / Time Aminoglycosides Allergy Mild DERMATITIS Verified 07/14/18 05:27 bacitracin Allergy Mild DERMATITIS Verified 07/14/18 05:27 neomycin Allergy Mild DERMATITIS Verified 07/14/18 05:27 polymyxin B Allergy Mild DERMATITIS Verified 07/14/18 05:27 Consultations 07/19/18 15:20 Consult Cardiology Routine Consult Orthopedic Surgery Stat Ordered Studies 07/19/18 11:57 CT chest wo con Stat CT thoracic spine wo con Stat Hospital Course (1) Elevated troponin I level: Peaked at 0.3 and trended down. May have been related to stress of patient's fall and injury. No changes on echo. Cardiology consulted and do not feel intervention or change in medications is warranted at this time as not likely true ACS. Restart ASA and continue statin and metoprolol (2) Compression fx, thoracic spine: Thoracic CT showed T4 compression fracture demonstrating 67% loss in height, CT chest w/o contrast also showed age-indeterminate right fourth anterior rib fracture. Orthopedic consultation - patient did not want to wear brace which ortho was ok with. Chest pain actually more left rib pain, possibly referred from compression fracture as no left rib fracture seen on imaging. At this point Mr. Goodman feels his pain is controlled with Tylenol. PT/OT evals ok with patient going home with continued PT/OT. (3) Diabetes mellitus, type 2: ADA diet. Sliding-scale insulin coverage (4) Hypertension: Treated with lisinopril and metoprolol (5) Hyponatremia: Na 133 today, was 128 at the time of his fall. Looking back, his sodium appears chronically on the low side. Serum osmo was 281, urine osmo was low at 344. Patient should limit fluids to only drink when thirsty and follow with outpatient provider. (6) Fall: 07/11 - mechanical PT/OT Sutures/hiral over scalp laceration removed 07/21 Total Time Total Time Spent Total Time Spent (In Minutes): greater than 30 minutes Discharge Plan Discharge Items Patient Disposition: Home - Self-Care Reason For Visit: SUSPECTED NON-STEMI, ACUTE T4 COMPRESSION FRACTURE Discharge Diagnosis: T4 compression fracture Condition: Good Discharge Goals: Decrease discomfort Activity: Resume your previous activity Activity Comment: gradually as tolerated Non-emergency contact: Primary Care Provider Call non-emergency contact if: you have any medication questions Follow-up/Referrals: Christiano Lobato MD [Primary Care Provider] - 07/28/18 11:00 am (Please, follow up at Dr. Christiano Lobato's office with his bakery assistant, Cecilia Pinzon PA-C, on FridayJuly 28 at 11:00 am. *If you need to change this appointment, call the office at [phone].) Francis Escalera MD [Physician] - 08/14/18 2:15 pm (Please, follow up at [facility] Cardiology Office with Dr. Tin Escalera on FridayAugust 14 at 2:15 pm. *The office is located in [address] of [facility]. This is the office building [facility] [email or web address]. If you need to change this appointment, call the office at [phone].) Cornelio To DO [Surgeon] - 08/07/18 10:10 am (Please, follow up at [facility] Orthopedics Office with Dr. To on FridayAugust 07 at 10:10 am. *This office is located at [address] [facility] in [place]. If you need to change this appointment, call the office at [phone].) Diet: Regular Addtl Provider Instructions: Take it easy and avoid twisting, bending or lifting. Your brace can help you avoid movements that may irritate your back. You should follow up with orthopedics in 2-3 weeks. Continue outpatient PT/OT Follow up with your primary care provider within a week and cardiology within two weeks. Your sodium level in your blood has been a bit low. Try to only drink when thirsty to limit diluting your sodium in your blood and follow up with your primary care provider about this. Call 911 if pain occurs with any of these symptoms:Loss of control over your bowels or bladder, numbness or weakness or high fever. Prescriptions: Continued multivitamin Tablet 1 tab PO QAM RF: 0 metoprolol tartrate 100 mg Tablet 150 mg PO BID RF: 0 aspirin [Aspir-81] 81 mg Tablet,Delayed Release (Dr/Ec) 81 mg PO DAILY RF: 0 simvastatin [Zocor] 40 mg Tablet 40 mg PO PM RF: 0 glimepiride 1 mg Tablet 1 mg PO QAM RF: 0 lisinopril 10 mg Tablet 10 mg PO DAILY RF: 0 nitroglycerin 0.4 mg Tablet, Sublingual 1 tab Sublingual UD PRN (Reason: Chest Pain) RF: 0 acetaminophen [Tylenol Extra Strength] 500 mg Tablet 1,000 mg PO Q6H PRN (Reason: Pain) RF: 0 Stand-Alone Forms: [facility] Discharge Orders: Discharge Order (Routine); Ordered 07/21/18 Ordered By: Joleen Lobato Admission Data Admit Date/Time: 07/19/18 14:29 Attending Provider: Mingo Anthony Admit Provider: Fito Bowen Primary Care Provider: Christiano Lobato Other Providers: Blayne Storm ; Randal Akins ; Vitaly Delgado ; Cornelio oT ; Vitaly Cruz ; Christiano Villalpando V ; Francis Leung ; Fito Bowen Service: Telemetry Other Interventions: Discharge Summary Assessment (RN) Last Done: 07/21/18 14:05 DC Date/Time DO NOT enter until pt leaves facility: 07/21/18 14:56
--- NOTE | 2018-07-24 10:38 | Coding Query ---
CODING QUERY To promote full compliance with coding requirements relating to patient care, provider participation is requested in all cases of medical coder uncertainty. Please assist us with the question(s) below: Coding Question(s): Conflicting documentation in discharge summary: Hospital Course: (1) Elevated troponin I level: Peaked at 0.3 and trended down. May have been related to stress of patient's fall and injury. No changes on echo. Cardiology consulted and do not feel intervention or change in medications is warranted at this time as not likely true ACS. Restart ASA and continue statin and metoprolol Discharge Plan: Reason For Visit: SUSPECTED NON-STEMI Please indicate below if NSTEMI was ruled out or still suspected after study. Physician's Response(s): ( ) NSTEMI ruled out ( x ) Code elevated troponin ( ) Code something else, please specify ( ) Suspected NSTEMI ( ) Other, please specify Thank you Thuy Rivera Principal Diagnosis: "that condition established after study, to be chiefly responsible for occasioning the admission of the patient to the hospital for care." Co-Existing Principal Diagnosis: "when two or more diagnoses equally meet the criteria for principal diagnosis as determined by the circumstances of admission, diagnostic work up, and/or therapy provided, and the Alphabetic Index, Tabular List, or another coding guideline does not provide sequencing direction, any one of the diagnoses may be sequenced first." "When the physician has documented what appears to be a current diagnosis in the body of the record, but has not included the diagnosis in the final diagnostic statement, the physician should be asked whether the diagnosis should be added." (Source [facility] 2 QTR90. p3-4) MIGUEL
== END 2018-07-21 14:56 | disposition home or self-care (01) | DRG 543 ==
LOC: ED 10:52 → 2S 14:29 → SUATTDRO 14:29 → 2S 15:00

== ENCOUNTER 2020-05-07 17:18 | Observation (INO) ==
[2020-05-07 18:24] LABS: Basophils # (auto) 0.01 K/uL (0-0.2); Basophils % (auto) 0.2 %; Eosinophils # (auto) 0.13 K/uL (0-0.5); Hematocrit (blood only) 40.7 % (42-52); Hemoglobin 13.4 g/dL (14.0-18.0); Immature Granulocytes # (auto) 0.01 K/uL (0.00-0.02); Immature Granulocytes % (auto) 0.2 %; Lymphocytes # (auto) 0.45 K/uL (1.2-3.4); Lymphocytes % (auto) 6.8 %; Mean Corpuscular Hemoglobin 31.2 pg (25-34); Mean Corpuscular Hgb Conc 32.9 g/dL (32-36); Mean Corpuscular Volume 94.7 fL (80-100); Mean Platelet Volume 10.3 fL (7.4-10.4); Monocytes # (auto) 0.59 K/uL (0.11-0.59); Monocytes % (auto) 8.9 %; Neutrophils # (auto) 5.44 K/uL (1.4-6.5); Neutrophils % (auto) 81.9 %; Platelet Count 252 K/uL (130-400); RDW Coefficient of Variation 14.1 % (11.5-14.5); RDW Standard Deviation 48.8 fL (36.4-46.3); White Blood Count 6.63 K/uL (4.8-10.8)
--- NOTE | 2020-05-07 18:46 | XRay Report ---
XR chest 1V portable CLINICAL HISTORY: Chest Pain COMPARISON STUDY: Chest radiograph July 19, 2018. FINDINGS: Lung volumes are diminished. There is no pneumothorax. There are small bilateral pleural ef fusions. Interstitial thickening is present. Note is made of cardiomegaly. There are mild bibasilar o pacities. IMPRESSION: 1. Interstitial thickening suggestive of pulmonary edema. An infectious process could appear similar although is considered less likely. Radiographic follow-up is recommended. 2. Small bilateral pleural effusions with bibasilar opacities. ACT 112: Negative or not required by law. Electronically signed by: Jaime Bloom M.D. 05/07/2020 6:44 PM
[2020-05-07 18:57] LABS: BUN Creatinine Ratio 19.6 (10-20); Blood Urea Nitrogen 18 mg/dl (7-18); Calcium 8.7 mg/dl (8.5-10.1); Carbon Dioxide 21 mmol/L (21-32); Chloride 98 mmol/L (98-107); Est GFR (African American) 86.6; Est GFR (Non-African American) 74.7; Glucose 220 mg/dl (70-99); NT Pro B Type Natriuretic Pept 7781 pg/ml (0-1800); Sodium 131 mmol/L (136-145); Troponin I 0.122 ng/ml (0-0.045)
[2020-05-07] MEDS ORDERED: FUROSEMIDE 40 MG/4 ML VIAL IV STA (19:14)
[2020-05-07 19:22] LABS: iSTAT Creatinine 0.6 mg/dl (0.6-1.3); iSTAT Hemoglobin 14.3 g/dl (14.0-18.0); iSTAT Ionized Calcium 1.16 mmol/l (1.12-1.32); iSTAT Potassium 4.7 mmol/L (3.3-5.0)
--- NOTE | 2020-05-07 19:49 | Emergency Department Note ---
History of Present Illness General Chief complaint: Leg Weakness, Bilateral Stated complaint: LEGS SWOLLEN Time Seen by Provider: 05/07/20 17:53 History of Present Illness Provider complaint: Leg swelling Onset (ago): day(s) 4 Location: lower extremity, left and right Maximum Pain Intensity: 0 Associated symptoms: no chest pain, no fever/chills and no shortness of breath 84-year-old female presents emergency department with his for bilateral lower extremity swelling. Patient reports his lower extremities been swollen for the last 3 to 4 days. Patient reports no history of congestive heart failure. He reports no chest pain or difficulty breathing. Patient states he thought that his swelling was due to his ulcers on his foot. He states his home health care nurse told him to come to the emergency department. Patient denies any fevers or chills. Patient does have a history of peripheral artery disease. He states he sees a vascular surgeon in [place] who was unable to stent the arteries in his lower extremities and he is scheduled to have a bypass of his lower extremities. Home Medications Medication Instructions Recorded Confirmed Type multivitamin 1 tab PO QAM 12/02/17 05/07/20 History nitroglycerin 1 tab SUBLINGUAL UD PRN 12/02/17 05/07/20 History acetaminophen [Tylenol Extra 1,000 mg PO Q6H PRN 07/14/18 05/07/20 History Strength] vit C-vit H-eiblkb-ohos ox-lutein 1 cap PO DAILY cap 09/02/18 05/07/20 History 226 mg-200 unit-5 mg-0.8 mg capsule vitamin B comp and C no.3 15 mg-10 1 cap PO DAILY 09/02/18 05/07/20 History mg-50 mg-5 mg-300 mg capsule metformin 500 mg tablet,extended 500 mg PO BID #180 tab 08/20/19 05/07/20 Rx release 24 hr metoprolol succinate 100 mg 150 mg PO BID #270 tab 08/20/19 05/07/20 Rx tablet,extended release 24 hr lisinopril 10 mg tablet 20 mg PO DAILY #180 tab 12/13/19 05/07/20 Rx glimepiride 1 mg tablet 1 mg PO QAM #90 tab 03/15/20 05/07/20 Rx simvastatin 40 mg tablet 40 mg PO DAILY #90 tab 03/20/20 05/07/20 Rx aspirin [Aspir-Low] 81 mg PO DAILY 05/07/20 05/07/20 History clopidogrel [Plavix] 75 mg PO DAILY 05/07/20 05/07/20 History diphenhydramine-acetaminophen 1 tab PO HS 05/07/20 05/07/20 History [Tylenol PM Extra Strength] Allergies Allergy/AdvReac Type Severity Reaction Status Date / Time Aminoglycosides Allergy Mild DERMATITIS Verified 05/04/20 09:39 bacitracin Allergy Mild DERMATITIS Verified 05/04/20 09:39 neomycin Allergy Mild DERMATITIS Verified 05/04/20 09:39 polymyxin B Allergy Mild DERMATITIS Verified 05/04/20 09:39 Past Med/Surg History Medical History 3-vessel coronary artery disease Acute hyponatremia 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 Cataract Closed head injury Compression fx, thoracic spine Diabetes mellitus, type 2 DENIES NEUROPATHY Foot pain Hearing decreased History of prostate cancer 15 YEARS AGO History of SCC (squamous cell carcinoma) of skin Hyperlipidemia Hypertension Hyponatremia Laceration of blood vessel of right index finger, initial encounter Non-pressure chronic ulcer of other part of left foot limited to breakdown of 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 [place] [place] History of herniorrhaphy History of radical prostatectomy History of tonsillectomy Hx of cataract surgery RIGHT Family History Father Hyperlipidemia Denies family history of Colon cancer Ovarian cancer Prostate cancer Myocardial infarction Breast cancer Social History Smoking Status: Never smoker Second Hand Exposure: No; Hx Alcohol Use: Yes Alcohol type: beer Hx Substance Use: No Preferred Language: [place]amb[place] Communication Ability: Effective Scrub Technician Required: No Beliefs That Will Affect Care: None marital status: Current Living Situation: Spouse Feels Safe at Home: Yes Assistive Devices: Glasses Review of Systems A total of 10 systems reviewed and were otherwise negative Physical Exam Vital Signs Vital Signs - 24 hr 05/07/20 17:34 05/07/20 18:23 05/07/20 18:24 Temperature 36.8 C Temperature Source Temporal Artery Scan Pulse Rate 105 H 98 H Pulse Rate from SpO2 Sensor 97 H Respiratory Rate 18 16 Respiratory Effort / Characteristics Non-Labored Spontaneous Respiratory Depth Normal Respiratory Pattern Regular Blood Pressure 131/75 121/79 Blood Pressure Mean 93 93 Blood Pressure Position Sitting Pulse Oximetry 100 96 97 Oxygen Delivery Method Room Air Room Air Sepsis Recent Fever Within 48 Hours No Sepsis New/Unexplained Change in Mental Status N/A Sepsis Action Taken by Nursing No Action Required 05/07/20 18:28 05/07/20 18:30 05/07/20 18:31 Temperature Temperature Source Pulse Rate 97 H 94 H 95 H Pulse Rate from SpO2 Sensor 98 H 101 H 97 H Respiratory Rate 17 16 16 Respiratory Effort / Characteristics Respiratory Depth Respiratory Pattern Blood Pressure 119/79 Blood Pressure Mean 92 Blood Pressure Position Pulse Oximetry 97 97 96 Oxygen Delivery Method Sepsis Recent Fever Within 48 Hours Sepsis New/Unexplained Change in Mental Status Sepsis Action Taken by Nursing 05/07/20 19:01 05/07/20 19:31 05/07/20 20:01 Temperature Temperature Source Pulse Rate 92 H 89 95 H Pulse Rate from SpO2 Sensor Respiratory Rate 16 21 16 Respiratory Effort / Characteristics Respiratory Depth Respiratory Pattern Blood Pressure 113/74 124/74 126/76 Blood Pressure Mean 87 90 92 Blood Pressure Position Pulse Oximetry 99 97 100 Oxygen Delivery Method Room Air Sepsis Recent Fever Within 48 Hours Sepsis New/Unexplained Change in Mental Status Sepsis Action Taken by Nursing 05/07/20 20:31 05/07/20 21:30 Temperature Temperature Source Pulse Rate 89 89 Pulse Rate from SpO2 Sensor Respiratory Rate 15 18 Respiratory Effort / Characteristics Respiratory Depth Respiratory Pattern Blood Pressure 124/74 Blood Pressure Mean 90 Blood Pressure Position Pulse Oximetry 98 97 Oxygen Delivery Method Room Air Sepsis Recent Fever Within 48 Hours Sepsis New/Unexplained Change in Mental Status Sepsis Action Taken by Nursing Physical Exam GENERAL: He is oriented to person, place, and time. He appears well-developed and well-nourished. He does not appear distressed. HENT: Exam performed. - Head: Normocephalic and atraumatic. - Right Ear: External ear normal. No mastoid tenderness. - Left Ear: External ear normal. No mastoid tenderness. - Mouth/Throat: The oropharynx is clear and moist. No trismus in the jaw. No dental abscesses or uvula swelling. No oropharyngeal exudate or tonsillar abs cesses. EYES: Conjunctivae and EOM are normal. Pupils are equal, round, and reactive to light. Right eye exhibits no discharge. Left eye exhibits no discharge. No scleral icterus. NECK: Normal range of motion. Neck supple. No JVD present. No spinous process tenderness present. No carotid bruit present. No rigidity. No tracheal deviation and normal range of motion present. No Brudzinski's sign and no Kernig's sign noted. CV: Normal rate, regular rhythm, normal heart sounds and intact distal pulses. 2+ pitting edema of the bilateral lower extremities. Palpable radial pulses bue. PULM/CHEST: Effort normal and breath sounds normal. No respiratory distress. No stridor. He has no wheezes. He has no rales. - Chest Wall: He exhibits no tenderness. ABD: The abdomen is soft. Bowel sounds are normal. He has no distension. No mass is present. There is no tenderness. There is no rebound, no guarding, no Lynn's sign and no tenderness at McBurney's point. Rovsig negative. MUSC/SKEL: Normal range of motion. There is no tenderness or deformity. 2+ pitting edema of the bilateral lower extremities. LYMPH: No cervical adenopathy. NEURO: He is alert and oriented to person, place, and time. He has normal strength. No cranial nerve deficit or sensory deficit. Coordination and gait normal. GCS eye subscore is 4. GCS verbal subscore is 5. GCS motor subscore is 6. Cerebellar tests wnl. SKIN: Well-healing ulcers on the bilateral lower extremities and on the left toes. PSYCH: He has a normal mood and affect. Behavior is normal. Judgment and thought content normal. Course Course 1752: The patient was evaluated in room C4. A complete history and physical exam was performed. Cardiac monitoring: An order was placed for continuous cardiac monitoring. The monitor shows a rate of 90 with sinus rhythm 1914: Vital signs stable. Labs show an elevated troponin and proBNP. Chest x- ray does show findings of congestive heart failure. Patient will be given Lasix IV [facility]ia's team has been notified. Patient no history of CHF. Administered Medications Discontinued Medications Furosemide (Furosemide 40 Mg/4 Ml Vial) 40 mg IV NOW STA Stop: 05/07/20 19:15 Last Admin: 05/07/20 19:28 Dose: 40 mg Documented by: [id number] Medical Decision Making Laboratory Data Result diagrams: 05/07/20 18:17 05/07/20 18:17 Lab Results 05/07/20 05/07/20 05/07/20 Range/Units 18:17 18:17 19:10 WBC 6.63 (4.8-10.8) K/uL RBC 4.30 L (4.7-6.1) M/uL Hgb 13.4 L (14.0-18.0) g/dL POC Hgb 14.3 (14.0-18.0) g/dl Hct 40.7 L (42-52) % POC Hct 42 (42-52) % MCV 94.7 (80-100) fL MCH 31.2 (25-34) pg MCHC 32.9 (32-36) g/dL RDW Std Deviation 48.8 H (36.4-46.3) fL RDW Coeff of Alexandre 14.1 (11.5-14.5) % Plt Count 252 (130-400) K/uL MPV 10.3 (7.4-10.4) fL Immature Gran % (Auto) 0.2 % Neut % (Auto) 81.9 % Lymph % (Auto) 6.8 % [place] % (Auto) 8.9 % Eos % (Auto) 2.0 % Baso % (Auto) 0.2 % Neut # (Auto) 5.44 (1.4-6.5) K/uL Lymph # (Auto) 0.45 L (1.2-3.4) K/uL [place] # (Auto) 0.59 (0.11-0.59) K/uL Eos # (Auto) 0.13 (0-0.5) K/uL Baso # (Auto) 0.01 (0-0.2) K/uL Immature Gran # (Auto) 0.01 (0.00-0.02) K/uL POC Sodium 130 L (135-144) mmol/L Sodium 131 L (136-145) mmol/L POC Potassium 4.7 (3.3-5.0) mmol/L Potassium (3.5-5.1) mmol/L POC Chloride 97 L (101-112) mmol/L Chloride 98 (98-107) mmol/L Carbon Dioxide 21 (21-32) mmol/L POC Total CO2 24 (24-31) mmol/L Anion Gap 12.0 H (3-11) POC Anion Gap 15.0 L (16-25) mmol/L POC BUN 17 (7-18) mg/dl BUN 18 (7-18) mg/dl Creatinine 0.94 (0.6-1.4) mg/dl POC Creatinine 0.6 (0.6-1.3) mg/dl Est Cr Clr Drug Dosing Not Reportable Est GFR ( Amer) 86.6 Est GFR (Non-Af Amer) 74.7 BUN/Creatinine Ratio 19.6 (10-20) Glucose 220 H (70-99) mg/dl POC Glucose (other) 184 H (70-99) mg/dl Calcium 8.7 (8.5-10.1) mg/dl POC Ioniz Calcium Gretta 1.16 (1.12-1.32) mmol/l Troponin I 0.122 H* (0-0.045) ng/ml NT-Pro-B Natriuret Pep 7781 H (0-1800) pg/ml COVID-19 Eval Order SARS-CoV-2, RNA, NAAT (NEGATIVE) 05/07/20 05/07/20 Range/Units 19:13 19:13 WBC (4.8-10.8) K/uL RBC (4.7-6.1) M/uL Hgb (14.0-18.0) g/dL POC Hgb (14.0-18.0) g/dl Hct (42-52) % POC Hct (42-52) % MCV (80-100) fL MCH (25-34) pg MCHC (32-36) g/dL RDW Std Deviation (36.4-46.3) fL RDW Coeff of Alexandre (11.5-14.5) % Plt Count (130-400) K/uL MPV (7.4-10.4) fL Immature Gran % (Auto) % Neut % (Auto) % Lymph % (Auto) % [place] % (Auto) % Eos % (Auto) % Baso % (Auto) % Neut # (Auto) (1.4-6.5) K/uL Lymph # (Auto) (1.2-3.4) K/uL [place] # (Auto) (0.11-0.59) K/uL Eos # (Auto) (0-0.5) K/uL Baso # (Auto) (0-0.2) K/uL Immature Gran # (Auto) (0.00-0.02) K/uL POC Sodium (135-144) mmol/L Sodium (136-145) mmol/L POC Potassium (3.3-5.0) mmol/L Potassium (3.5-5.1) mmol/L POC Chloride (101-112) mmol/L Chloride (98-107) mmol/L Carbon Dioxide (21-32) mmol/L POC Total CO2 (24-31) mmol/L Anion Gap (3-11) POC Anion Gap (16-25) mmol/L POC BUN (7-18) mg/dl BUN (7-18) mg/dl Creatinine (0.6-1.4) mg/dl POC Creatinine (0.6-1.3) mg/dl Est Cr Clr Drug Dosing Est GFR ( Amer) Est GFR (Non-Af Amer) BUN/Creatinine Ratio (10-20) Glucose (70-99) mg/dl POC Glucose (other) (70-99) mg/dl Calcium (8.5-10.1) mg/dl POC Ioniz Calcium Gretta (1.12-1.32) mmol/l Troponin I (0-0.045) ng/ml NT-Pro-B Natriuret Pep (0-1800) pg/ml COVID-19 Eval Order Covid19 IDNow [facility] SARS-CoV-2, RNA, NAAT NEGATIVE (NEGATIVE) Imaging Data Radiologist's Impression: XR chest 1V portable CLINICAL HISTORY: Chest Pain COMPARISON STUDY: Chest radiograph July 19, 2018. FINDINGS: Lung volumes are diminished. There is no pneumothorax. There are small bilateral pleural effusions. Interstitial thickening is present. Note is made of cardiomegaly. There are mild bibasilar opacities. IMPRESSION: 1. Interstitial thickening suggestive of pulmonary edema. An infectious process could appear similar although is considered less likely. Radiographic follow-up is recommended. 2. Small bilateral pleural effusions with bibasilar opacities. ACT 112: Negative or not required by law. Electronically signed by: Jaime Bloom M.D. 05/07/2020 6:44 PM Dictated: [id number]/07/[id number]: 05/07/201842 ECG Data Indication: + other (Lower extremity edema) Rate (beats per minute): 96 Rhythm: + normal sinus ECG Intervals/blocks: + Normal QRS, + Normal [place] and + Normal QT-c ECG ST segments: + Normal ST segments ECG Findings: + PVCs MDM Narrative 1753: The patient was evaluated in room C4. A complete history and physical exam was performed. Cardiac monitoring: An order was placed for continuous cardiac monitoring. The monitor shows a rate of 90 with sinus rhythm 1914: Vital signs stable. Labs show an elevated troponin and proBNP. Chest x- ray does show findings of congestive heart failure. Patient will be given Lasix IV [facility] Mejia's team has been notified. Patient no history of CHF. Impression & Plan CHF (congestive heart failure) Discharge Plan Visit Data Chief Complaint: Leg Weakness, Bilateral Stated Complaint: LEGS SWOLLEN ED Provider: Mirza Kemp Discharge Problem: CHF (congestive heart failure) Patient Disposition: Admitted As Inpatient Forms Stand Alone Forms: [facility] Prescriptions Prescriptions: No Action metformin 500 mg tablet extended release 24 hr 500 mg PO BID Qty: 180 RF: 3 metoprolol succinate 100 mg tablet extended release 24 hr 150 mg PO BID Qty: 270 RF: 3 lisinopril 10 mg tablet 20 mg PO DAILY Qty: 180 RF: 3 glimepiride 1 mg tablet 1 mg PO QAM Qty: 90 RF: 3 simvastatin [Zocor] 40 mg tablet 40 mg PO DAILY Qty: 90 RF: 3 PreserVision Lutein 226 mg-200 unit -5 mg-0.8 mg capsule 1 cap PO DAILY RF: 0 B Complex Plus Vitamin C [id number] mg capsule 1 cap PO DAILY RF: 0 aspirin [Aspir-Low] 81 mg Tablet,Delayed Release (Dr/Ec) 81 mg PO DAILY RF: 0 diphenhydramine-acetaminophen [Tylenol PM Extra Strength] 25-500 mg Tablet 1 tab PO HS RF: 0 clopidogrel [Plavix] 75 mg tablet 75 mg PO DAILY RF: 0 multivitamin Tablet 1 tab PO QAM RF: 0 nitroglycerin 0.4 mg Tablet, Sublingual 1 tab Sublingual UD PRN (Reason: Chest Pain) RF: 0 acetaminophen [Tylenol Extra Strength] 500 mg Tablet 1,000 mg PO Q6H PRN (Reason: Pain) RF: 0 Referrals Referrals: Christiano Lobato MD [Primary Care Provider] - Discharge Problem: CHF (congestive heart failure) Qualifiers: Heart failure type: unspecified Heart failure chronicity: acute Qualified Code(s): I50.9 - Heart failure, unspecified
--- NOTE | 2020-05-07 20:49 | History & Physical Report ---
Date of Service May 07, 2020 Assessment & Plan (1) CHF (congestive heart failure): 84 yo M with hx HTN, DM2, HLD, CAD, PAD admitted for worsening peripheral edema and pulmonary edema likely secondary to new onset congestive heart failure. CHF - 2 view CXR, left lateral decub indicating pleural edema at bases and in fissures rather than effusion or lobular pneumonia - probnp elevated at 7781, no historical measurements for comparison - previous echo in 07/2018 showing EF 55-60% with akinesis of distal inferoseptum and apical septum. type 1 diastolic dysfunction - repeat ECHO ordered - received 40 mg IV lasix in ER with increased urine output - daily 40 mg IV lasix in AM - strict intake/output Qshift - daily AM weight - low salt, heart healthy diet - [facility] cards[facility] consult placed (2) Elevated troponin: - 0.122 on admission, repeat 0.136, third ordered for 6 am - EKG: sinus rhythm with pvcs, possible infarcts in anterior and inferior previously - daily EKGs - no reports of chest pain - demand ischemia due to acute failure exacerbation? (3) PAD (peripheral artery disease): - swelling secondary to CHF, worsened by pre-existing PAD - consider consulting vascular surgery for intervention in near future - BL arterial dopplers ordered - risk factors: HTN, HLD, DM2, no smoking hx (4) 3-vessel coronary artery disease: - continue daily ASA, plavix, (5) Hyponatremia: - Na 130 on admission - hypovolemic hyponatremia secondary to third spacing fluid - daily bmp - low salt diet, encourage PO fluid intake, diuresis (6) Diabetes mellitus, type 2: - home glimeperide and metformin held - SSI - heart healthy diet (7) Hyperlipidemia: - cont statin (8) Hypertension: - cont lisinopril 20, metoprolol succ 150 BID (9) Non-pressure chronic ulcer of other part of left foot limited to breakdown of skin: - wound dressings Qshift, wound consult placed - follows with podiatry - no indication of bacteremia currently, however high concern for skin source if febrile DVT ppx: lovenox FEN/GI: heart health, low sodium diet Code Status: DNR/DNI Dispo: PCU/Tele History of Present Illness 84 yo M with hx prostate cancer, CAD, PAD, HLD, HTN, DM2 presenting to ED for complaints of bilateral lower extremity swelling for the past week. He states that he previously has seen vascular physicians at [facility] regarding planning a femoral bypass in the future for his severe PAD. In the past week he has noticed slowly worsening swelling of the lower extremities to the point of having fluid ooze from the skin. He came to the ER after recommendation from a friend who is a wound nurse. No fevers, chills, night sweats, discharge from leg wounds. Denies any SOB or CP on exertion, no calf pain with walking. Eats salt crackers, low sodium canned soup, deli and lunch meats on a daily basis. He denies any pain, weakness in the legs. He has ulcers on his left foot that have been in the process of healing since January, and has been following with podiatry for these. he denies numbness or tingling in the feet or toes but has marked decreased sensation on exam. Primary Care Provider: Christiano Lobato MD Allergies Allergy/AdvReac Type Severity Reaction Status Date / Time Aminoglycosides Allergy Mild DERMATITIS Verified 05/04/20 09:39 bacitracin Allergy Mild DERMATITIS Verified 05/04/20 09:39 neomycin Allergy Mild DERMATITIS Verified 05/04/20 09:39 polymyxin B Allergy Mild DERMATITIS Verified 05/04/20 09:39 Home Medications Medication Instructions Recorded Confirmed Type multivitamin 1 tab PO QAM 12/02/17 05/07/20 History nitroglycerin 1 tab SUBLINGUAL UD PRN 12/02/17 05/07/20 History acetaminophen [Tylenol Extra 1,000 mg PO Q6H PRN 07/14/18 05/07/20 History Strength] vit C-vit U-gozbzg-dofy ox-lutein 1 cap PO DAILY cap 09/02/18 05/07/20 History 226 mg-200 unit-5 mg-0.8 mg capsule vitamin B comp and C no.3 15 mg-10 1 cap PO DAILY 09/02/18 05/07/20 History mg-50 mg-5 mg-300 mg capsule metformin 500 mg tablet,extended 500 mg PO BID #180 tab 08/20/19 05/07/20 Rx release 24 hr metoprolol succinate 100 mg 150 mg PO BID #270 tab 08/20/19 05/07/20 Rx tablet,extended release 24 hr lisinopril 10 mg tablet 20 mg PO DAILY #180 tab 12/13/19 05/07/20 Rx glimepiride 1 mg tablet 1 mg PO QAM #90 tab 03/15/20 05/07/20 Rx simvastatin 40 mg tablet 40 mg PO DAILY #90 tab 03/20/20 05/07/20 Rx aspirin [Aspir-Low] 81 mg PO DAILY 05/07/20 05/07/20 History clopidogrel [Plavix] 75 mg PO DAILY 05/07/20 05/07/20 History diphenhydramine-acetaminophen 1 tab PO HS 05/07/20 05/07/20 History [Tylenol PM Extra Strength] Past Med/Surg History Medical History 3-vessel coronary artery disease Acute hyponatremia 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 Cataract Closed head injury Compression fx, thoracic spine Diabetes mellitus, type 2 DENIES NEUROPATHY Foot pain Hearing decreased History of prostate cancer 15 YEARS AGO History of SCC (squamous cell carcinoma) of skin Hyperlipidemia Hypertension Hyponatremia Laceration of blood vessel of right index finger, initial encounter Non-pressure chronic ulcer of other part of left foot limited to breakdown of skin 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 Osteoporosis, unspecified PAD (peripheral artery disease) Right knee pain Surgical History History of cardiac cath 15 YEARS AGO, [facility] X1, [facility], [facility] [place] History of herniorrhaphy History of radical prostatectomy History of tonsillectomy Hx of cataract surgery RIGHT Family History Father Hyperlipidemia Denies family history of Colon cancer Ovarian cancer Prostate cancer Myocardial infarction Breast cancer Social History Smoking Status: Never smoker Second Hand Exposure: No; Hx Alcohol Use: No Hx Substance Use: No Preferred Language: Tristanian Communication Ability: Effective County Coroner Required: No Beliefs That Will Affect Care: None marital status: Current Living Situation: Spouse Other Information That Helps Us Care for You: No Feels Safe at Home: Yes Safety Concerns: Feels Safe At This Time Assistive Devices: Glasses Review of Systems Constitutional: no fever, no chills, no sweats, no body aches, no fatigue, no weakness and no weight gain Eyes: no blind spots Respiratory: no cough, no dyspnea, no dyspnea on exertion and no pain on inspiration Cardiovascular: + edema and + calf pain; no chest pain, no dyspnea at rest, no dyspnea on exertion, no orthopnea, no paroxysmal nocturnal dyspnea and no palpitations Gastrointestinal: no abdominal pain, no nausea, no vomiting, no constipation, no diarrhea/loose stools and no blood in stools Physical Exam Physical Exam: Constitutional: elderly male in no apparent distress, sitting c omfortably in bed. Eyes: EOMI, pupils equal and reactive bilaterally, no scleral icterus Cardiac: RRR, no murmurs, gallops or rubs. Normal S1, S2, Pulm: diminished air flow to bilateral bases, no wheezes, mild crackles at RLL, no extra work of breathing Abd: soft, nontender, nondistended, normal bowel sounds, no rebound or guarding Extremities: 4+ pitting edema to knees bilaterally, chronic venous stasis changes over anterior legs BL, multiple broken blisters and weeping clear fluid from skin. Feet: 4+ pitting edema, partially healed ulcers on left great toe and left 3rd toe. DP, PT pulses not palpable bilaterally. Neuro: A&Ox3, diminished sensation over S1, moving all extremities Results & Data Results & Data ([facility]) Vital Signs (Past 12 Hours) Vital Signs Temp Pulse Resp BP Pulse Ox 05/07/20 20:31 89 15 124/74 98 05/07/20 20:01 95 H 16 126/76 100 05/07/20 19:31 89 21 124/74 97 05/07/20 19:01 92 H 16 113/74 99 05/07/20 18:31 95 H 16 119/79 96 05/07/20 18:30 94 H 16 97 05/07/20 18:28 97 H 17 97 05/07/20 18:24 97 05/07/20 18:23 98 H 16 121/79 96 05/07/20 17:34 36.8 C 105 H 18 131/75 100 Laboratory Results WBC 6.63 K/uL (4.8-10.8) 05/07/20 18:17 RBC 4.30 M/uL (4.7-6.1) L 05/07/20 18:17 Hgb 13.4 g/dL (14.0-18.0) L 05/07/20 18:17 POC Hgb 14.3 g/dl (14.0-18.0) 05/07/20 19:10 Hct 40.7 % (42-52) L 05/07/20 18:17 POC Hct 42 % (42-52) 05/07/20 19:10 MCV 94.7 fL (80-100) 05/07/20 18:17 MCH 31.2 pg (25-34) 05/07/20 18:17 MCHC 32.9 g/dL (32-36) 05/07/20 18:17 RDW Std Deviation 48.8 fL (36.4-46.3) H 05/07/20 18:17 RDW Coeff of Alexandre 14.1 % (11.5-14.5) 05/07/20 18:17 Plt Count 252 K/uL (130-400) 05/07/20 18:17 MPV 10.3 fL (7.4-10.4) 05/07/20 18:17 Immature Gran % (Auto) 0.2 % 05/07/20 18:17 Neut % (Auto) 81.9 % 05/07/20 18:17 Lymph % (Auto) 6.8 % 05/07/20 18:17 [place] % (Auto) 8.9 % 05/07/20 18:17 Eos % (Auto) 2.0 % 05/07/20 18:17 Baso % (Auto) 0.2 % 05/07/20 18:17 Neut # (Auto) 5.44 K/uL (1.4-6.5) 05/07/20 18:17 Lymph # (Auto) 0.45 K/uL (1.2-3.4) L 05/07/20 18:17 [place] # (Auto) 0.59 K/uL (0.11-0.59) 05/07/20 18:17 Eos # (Auto) 0.13 K/uL (0-0.5) 05/07/20 18:17 Baso # (Auto) 0.01 K/uL (0-0.2) 05/07/20 18:17 Immature Gran # (Auto) 0.01 K/uL (0.00-0.02) 05/07/20 18:17 POC Sodium 130 mmol/L (135-144) L 05/07/20 19:10 Sodium 131 mmol/L (136-145) L 05/07/20 18:17 POC Potassium 4.7 mmol/L (3.3-5.0) 05/07/20 19:10 Potassium mmol/L (3.5-5.1) 05/07/20 18:17 POC Chloride 97 mmol/L (101-112) L 05/07/20 19:10 Chloride 98 mmol/L (98-107) 05/07/20 18:17 Carbon Dioxide 21 mmol/L (21-32) 05/07/20 18:17 POC Total CO2 24 mmol/L (24-31) 05/07/20 19:10 Anion Gap 12.0 (3-11) H 05/07/20 18:17 POC Anion Gap 15.0 mmol/L (16-25) L 05/07/20 19:10 POC BUN 17 mg/dl (7-18) 05/07/20 19:10 BUN 18 mg/dl (7-18) 05/07/20 18:17 Creatinine 0.94 mg/dl (0.6-1.4) 05/07/20 18:17 POC Creatinine 0.6 mg/dl (0.6-1.3) 05/07/20 19:10 Est Cr Clr Drug Dosing Not Reportable 05/07/20 18:17 Est GFR ( Amer) 86.6 05/07/20 18:17 Est GFR (Non-Af Amer) 74.7 05/07/20 18:17 BUN/Creatinine Ratio 19.6 (10-20) 05/07/20 18:17 Glucose 220 mg/dl (70-99) H 05/07/20 18:17 POC Glucose (other) 184 mg/dl (70-99) H 05/07/20 19:10 Calcium 8.7 mg/dl (8.5-10.1) 05/07/20 18:17 POC Ioniz Calcium Gretta 1.16 mmol/l (1.12-1.32) 05/07/20 19:10 Total Bilirubin 0.5 mg/dl (0.2-1) 05/07/20 18:17 Direct Bilirubin mg/dl (0-0.2) 05/07/20 18:17 AST U/L (15-37) 05/07/20 18:17 ALT 41 U/L (12-78) 05/07/20 18:17 Alkaline Phosphatase 87 U/L (45-117) 05/07/20 18:17 Troponin I 0.136 ng/ml (0-0.045) H* 05/08/20 00:27 NT-Pro-B Natriuret Pep 7781 pg/ml (0-1800) H 05/07/20 18:17 Total Protein 7.0 gm/dl (6.4-8.2) 05/07/20 18:17 Albumin 3.3 gm/dl (3.4-5.0) L 05/07/20 18:17 COVID-19 Eval Order Covid19 [facility] 05/07/20 19:13 SARS-CoV-2, RNA, NAAT NEGATIVE (NEGATIVE) 05/07/20 19:13 Supervising Physician Co-Signing Physician Notes Attending addendum: I have physically seen this patient, have supervised the medical residents activities, and agree with the H&P unless as otherwise noted. Assessment and Plan: New onset CHF/elevated troponin/CAD/hypertension- The patient will be admitted to telemetry for serial cardiac enzymes, serial EKG's, cardiac rhythm monitoring and a 2-D echocardiogram with Dopplers. Given Lasix 40 mg IV x1 in the ED and will place on 40 mg IV every morning Follow serial BMP and CBC with differential Continue aspirin, clopidogrel, lisinopril and metoprolol Consult cardiology Diabetes mellitus- Hold Metformin and glimepiride Placed on Accu-Cheks before meals and at bedtime with NovoLog coverage per scale Check hemoglobin A1c Hyperlipidemia- Continue simvastatin 40 mg daily Check a fasting lipid panel Remaining orders and notations as noted Resident Activity Tracking Resident Involvement: Resident Care Provided Care Provided: Adult Hospital Medicine (1) Diabetes mellitus, type 2 Diabetes mellitus complication status: with circulatory complication Diabetes mellitus termite inspector insulin use: without termite inspector use (2) CHF (congestive heart failure) Heart failure chronicity: acute Heart failure type: unspecified Qualified Code(s): I50.9 - Heart failure, unspecified (3) Hypertension Hypertension type: essential hypertension Qualified Code(s): I10 - Essential (primary) hypertension
[2020-05-07 23:22] LABS: Alanine Aminotransferase 41 U/L (12-78); Albumin Level 3.3 gm/dl (3.4-5.0); Alkaline Phosphatase 87 U/L (45-117); Bilirubin,Total 0.5 mg/dl (0.2-1)
[2020-05-08] MEDS ORDERED: ONDANSETRON INJ 2 MG/ML 2 ML VIAL IV PRN (00:05)
[2020-05-08] MEDS ORDERED: POLYETHYLENE (MIRALAX) 17 GM PACK PO PRN (00:05)
[2020-05-08] MEDS ORDERED: ALUMINUM/MAGNESIUM SUSP 30 ML UDC PO PRN (00:05)
[2020-05-08] MEDS ORDERED: MAGNESIUM HYDROXIDE SUSP 30 ML UDC PO PRN (00:05)
[2020-05-08] MEDS ORDERED: ACETAMINOPHEN 325 MG TAB PO PRN (00:05)
[2020-05-08] MEDS: METOPROLOL SUCC 50MG EXT REL TAB PO SCH ×3 (00:39→21:56)
[2020-05-08 06:39] LABS: Basophils # (auto) 0.01 K/uL (0-0.2); Basophils % (auto) 0.2 %; Eosinophils % (auto) 1.6 %; Hematocrit (blood only) 38.5 % (42-52); Hemoglobin 12.7 g/dL (14.0-18.0); Immature Granulocytes # (auto) 0.01 K/uL (0.00-0.02); Immature Granulocytes % (auto) 0.2 %; Lymphocytes # (auto) 0.53 K/uL (1.2-3.4); Lymphocytes % (auto) 8.2 %; Mean Corpuscular Volume 93.9 fL (80-100); Mean Platelet Volume 10.1 fL (7.4-10.4); Monocytes # (auto) 0.62 K/uL (0.11-0.59); Monocytes % (auto) 9.6 %; Neutrophils # (auto) 5.18 K/uL (1.4-6.5); Neutrophils % (auto) 80.2 %; Platelet Count 230 K/uL (130-400); White Blood Count 6.45 K/uL (4.8-10.8)
--- NOTE | 2020-05-08 06:52 | XRay Report ---
XR chest 2V PA/lateral CLINICAL HISTORY: basilar crackles, congestive heart failure COMPARISON STUDY: 07/19/2018 FINDINGS: The heart is enlarged. There is aortic tortuosity/ectasia. There are small bilateral pleura l effusions. There is elevation of interstitium suggesting congestive failure/fluid overload. There i s no lobar consolidation.[ IMPRESSION: Radiographic evidence of congestive failure/fluid overload with small bilateral pleural e ffusions, cardiomegaly, and elevation of the interstitium. ACT 112: Negative or not required by law. Electronically signed by: Brady Cano M.D. 05/08/2020 6:50 AM
--- NOTE | 2020-05-08 06:53 | XRay Report ---
XR chest decubs CLINICAL HISTORY: Abnormal chest x-ray. Possible pleural effusions. Congestive failure. COMPARISON STUDY: May 07, 2020 FINDINGS: Decubitus views the chest are limited from a technical standpoint as CT pelvis hemithorax i s not fully visualized. Nevertheless the images do confirm bilateral freely layering pleural effusion s.[ IMPRESSION: Bilateral pleural effusions. ACT 112: Negative or not required by law. Electronically signed by: Brady Cano M.D. 05/08/2020 6:52 AM
[2020-05-08 07:15] LABS: BUN Creatinine Ratio 20.1 (10-20); Calcium 8.8 mg/dl (8.5-10.1); Creatinine Clr Calc Pharmacy 79.6 ml/min; Est GFR (African American) 100.6; Est GFR (Non-African American) 86.8; Potassium 3.9 mmol/L (3.5-5.1)
--- NOTE | 2020-05-08 07:42 | Hospitalist Progress Note ---
Date of Service May 08, 2020 Assessment & Plan (1) CHF (congestive heart failure): lower extremity and pulmonary edema with associated troponin likely related to supply demand mismatch 2019 echo with EF 55%, stage 1 diastolic dysfunction 3-1 repeat echo lasix 40mg IV daily strict ins and outs daily weights CHF consult pending (2) Elevated troponin: likely related to supply demand mismatch (3) Coronary artery disease: continue aspirin and plavix (4) Peripheral vascular disease: aspirin and plavix IMPRESSION: Extensive atherosclerotic plaque within the bilateral lower extremities with occlusion of the bilateral superficial femoral arteries with distal reconstitution. Dampened, monophasic flow within the bilateral calf vessels with multiple sites of occlusion, as described above. 3-1 placed vascular surgery consultation (5) Diabetes mellitus, type 2: holding oral meds continue low ssi (6) Hyponatremia: 2-28 sodium 130 3-1 sodium 134, improving with diuresis (7) Neuropathy: continue gabapentin (8) Hyperlipidemia: cont statin (9) Hypertension: cont lisinopril, metoprolol (10) Non-pressure chronic ulcer of other part of left foot limited to breakdown of skin: Admission and Anticipated Discharge Date Admission Date: May 07, 2020 Subjective Patient has lower extremity edema which is improving. Denies shortness of breath or cough. The left big toe is red and painful. The left leg bullae is still weeping but seems to be improving. Patient had a BM today. Tolerating meals. No trouble with bladder. Review of Systems Constitutional: no fever, no chills, no fatigue, no weakness, no anorexia, no weight loss and no weight gain Ear, Nose, Mouth, Throat: no nasal congestion, no sore throat and no dysphagia Respiratory: no cough and no dyspnea Cardiovascular: + edema; no chest pain, no dyspnea on exertion, no orthopnea and no palpitations Gastrointestinal: no abdominal pain, no nausea, no vomiting, no hematemesis, no dysphagia, no constipation, no diarrhea/loose stools, no blood in stools and no melena Genitourinary: no dysuria and no urinary frequency Musculoskeletal: no back pain, no joint pain, no myalgia and no muscle weakness Integumentary: no rash, no lesions, no skin ulcer, no erythema, no dry skin an d no pruritus Neurologic: no falls, no localized weakness, no generalized weakness, no numbness, no paresthesia, no tremor(s) and no headache(s) Psychiatric: no depression, no suicidal ideation, no homicidal ideation and no anxiety Endocrine: no cold intolerance and no heat intolerance Hematologic / Lymphatic: no easy bleeding and no easy bruising Physical Exam Constitutional: well developed and well nourished; no acute distress Eyes: PERRL, conjunctivae normal, anicteric sclerae ENMT: Mouth: oral mucous membranes not dry Respiratory: normal respiratory effort; no respiratory distress and no labored breathing Auscultation: lungs clear to auscultation bilaterally; no crackles, no rales, no rhonchi and no wheezes Cardiovascular: Rate/Rhythm: regular rate and regular rhythm Heart Sounds: no murmur and no cardiac rub Vessels: normal peripheral pulses and radial pulses present; no JVD Extremities: + edema (2+ bilateral LE edema) Gastrointestinal (Abdomen): Inspection/Auscultation: abdomen normal to inspection and normal bowel sounds; abdomen not distended Percussion/Palpation: abdomen soft; abdomen nontender, no guarding, abdomen not rigid and no hepatosplenomegaly Musculoskeletal: Head/Neck/Chest: normocephalic and head atraumatic Spine: no cervical spinal tenderness, no cervical muscular tenderness, no thoracic spinal tenderness and no lumbar spinal tenderness Skin: + erythema (large bullae on medial left leg, weeping serous fluid) Neurologic: CN's II-XI intact bilaterally and moves all extremities Motor/Sensory: no tremor and no sensory deficit Psychiatric: Orientation: alert, oriented to person, oriented to place and oriented to time Apperance: appropriately groomed; not disheveled Affect: euthymic affect; no anxious affect and no tearful affect Genitourinary: no C[place] catheter Results & Data Results & Data ([facility]) Vital Signs (Past 12 Hours) Vital Signs Temp Pulse Pulse Resp BP BP Pulse Ox 05/08/20 04:09 36.4 C L 88 18 112/73 95 05/07/20 23:50 36.5 C 100 H 16 137/73 95 05/07/20 22:00 89 20 98 05/07/20 21:30 89 18 97 05/07/20 20:31 89 15 124/74 98 05/07/20 20:01 95 H 16 126/76 100 Laboratory Results Abnormal lab results 05/07/20 05/07/20 05/07/20 Range/Units 18:17 18:17 19:10 RBC 4.30 L (4.7-6.1) M/uL Hgb 13.4 L (14.0-18.0) g/dL Hct 40.7 L (42-52) % RDW Std Deviation 48.8 H (36.4-46.3) fL Lymph # (Auto) 0.45 L (1.2-3.4) K/uL [place] # (Auto) (0.11-0.59) K/uL POC Sodium 130 L (135-144) mmol/L Sodium 131 L (136-145) mmol/L POC Chloride 97 L (101-112) mmol/L Anion Gap 12.0 H (3-11) POC Anion Gap 15.0 L (16-25) mmol/L BUN/Creatinine Ratio (10-20) Glucose 220 H (70-99) mg/dl POC Glucose (other) 184 H (70-99) mg/dl Troponin I 0.122 H* (0-0.045) ng/ml NT-Pro-B Natriuret Pep 7781 H (0-1800) pg/ml Albumin 3.3 L (3.4-5.0) gm/dl 05/08/20 05/08/20 05/08/20 Range/Units 00:27 06:23 06:23 RBC 4.10 L (4.7-6.1) M/uL Hgb 12.7 L (14.0-18.0) g/dL Hct 38.5 L (42-52) % RDW Std Deviation 48.0 H (36.4-46.3) fL Lymph # (Auto) 0.53 L (1.2-3.4) K/uL [place] # (Auto) 0.62 H (0.11-0.59) K/uL POC Sodium (135-144) mmol/L Sodium (136-145) mmol/L POC Chloride (101-112) mmol/L Anion Gap (3-11) POC Anion Gap (16-25) mmol/L BUN/Creatinine Ratio (10-20) Glucose (70-99) mg/dl POC Glucose (other) (70-99) mg/dl Troponin I 0.136 H* 0.168 H* (0-0.045) ng/ml NT-Pro-B Natriuret Pep (0-1800) pg/ml Albumin (3.4-5.0) gm/dl 05/08/20 Range/Units 06:23 RBC (4.7-6.1) M/uL Hgb (14.0-18.0) g/dL Hct (42-52) % RDW Std Deviation (36.4-46.3) fL Lymph # (Auto) (1.2-3.4) K/uL [place] # (Auto) (0.11-0.59) K/uL POC Sodium (135-144) mmol/L Sodium 134 L (136-145) mmol/L POC Chloride (101-112) mmol/L Anion Gap (3-11) POC Anion Gap (16-25) mmol/L BUN/Creatinine Ratio 20.1 H (10-20) Glucose (70-99) mg/dl POC Glucose (other) (70-99) mg/dl Troponin I (0-0.045) ng/ml NT-Pro-B Natriuret Pep (0-1800) pg/ml Albumin (3.4-5.0) gm/dl Medications Administered Current Inpatient Medications Acetaminophen (Acetaminophen 325 Mg Tab) 650 mg PO Q4H PRN PRN Reason: Pain or Fever Stop: 06/07/20 00:04 Al Hydrox/Mg Hydrox/Simethicone (Aluminum/Magnesium Susp 30 Ml Udc) 15 ml PO Q4H PRN PRN Reason: Dyspepsia Stop: 06/07/20 00:04 Aspirin (Aspirin 81 Mg Ectab) 81 mg PO DAILY [facility] Stop: 06/07/20 08:59 Clopidogrel Bisulfate (Clopidogrel Bisulfate 75 Mg Tab) 75 mg PO DAILY [facility] Stop: 06/07/20 08:59 Gabapentin (Gabapentin 100 Mg Cap) 100 mg PO BID PRN PRN Reason: pain Stop: 06/07/20 08:59 Furosemide 40 mg/ Syringe 4 mls @ 4 mls/min IV QAM CARLO Stop: 06/07/20 08:59 Lisinopril (Lisinopril 20 Mg Tab) 20 mg PO DAILY [facility]LO Stop: 06/07/20 08:59 Magnesium Hydroxide (Magnesium Hydroxide Susp 30 Ml Udc) 30 ml PO Q12H PRN PRN Reason: Constipation Stop: 06/07/20 00:04 Metoprolol Succinate (Metoprolol Succ 50mg Ext Rel Tab) 150 mg PO BID CARLO Stop: 06/06/20 23:58 Last Admin: 05/08/20 00:39 Dose: 150 mg Documented by: Ondansetron HCl (Ondansetron Inj 2 Mg/Ml 2 Ml Vial) 4 mg IV Q6H PRN PRN Reason: Nausea Stop: 06/07/20 00:04 Polyethylene Glycol (Polyethylene (Miralax) 17 Gm Pack) 17 gm PO DAILY PRN PRN Reason: Constipation Stop: 06/07/20 00:04 Simvastatin (Simvastatin 40 Mg Tab) 40 mg PO DAILY CARLO Stop: 06/07/20 08:59 PG Care Time/CCT Total # of Minutes Spent Total Time Spent with Patient: Total time spent is greater than 50% in coordination of care (as documented) at patient's floor/unit and/or counseling patient: Coding Level of Care Code 60295 Subseq Hosp Care Lvl 2 Diagnoses CHF (congestive heart failure) I50.9 Heart failure chronicity: acute Heart failure type: unspecified Elevated troponin R77.8 Coronary artery disease I25.10 Associated angina: without angina Coronary Disease-Associated Artery/Lesion type: [place] artery [place] vs. transplanted heart: [place] heart Peripheral vascular disease I73.9 Diabetes mellitus, type 2 E11.59 Diabetes mellitus complication status: with circulatory complication Diabetes mellitus senior care insulin use: without senior care use Diabetes mellitus complication detail: with other circulatory complications Hyponatremia E87.1 Neuropathy G62.9 Hyperlipidemia E78.5 Hyperlipidemia type: unspecified Hypertension I10 Hypertension type: essential hypertension Non-pressure chronic ulcer of other part of left foot limited to breakdown of skin L97.521 (1) Diabetes mellitus, type 2 Diabetes mellitus complication status: with circulatory complication Diabetes mellitus senior care insulin use: without senior care use Diabetes mellitus complication detail: with other circulatory complications Qualified Code(s): E11.59 - Type 2 diabetes mellitus with other circulatory complications (2) Coronary artery disease Associated angina: without angina Coronary Disease-Associated Artery/Lesion type: [place] artery [place] vs. transplanted heart: [place] heart Qualified Code(s): I25.10 - Atherosclerotic heart disease of [place] coronary artery without angina pectoris (3) CHF (congestive heart failure) Heart failure chronicity: acute Heart failure type: unspecified Qualified Code(s): I50.9 - Heart failure, unspecified (4) Hyperlipidemia Hyperlipidemia type: unspecified Qualified Code(s): E78.5 - Hyperlipidemia, unspecified (5) Hypertension Hypertension type: essential hypertension Qualified Code(s): I10 - Essential (primary) hypertension
--- NOTE | 2020-05-08 08:01 | Ultrasound Report ---
BILATERAL LOWER EXTREMITY ARTERIAL DOPPLER ULTRASOUND CLINICAL HISTORY: PAD, no palpable pulses COMPARISON STUDY: No previous studies for comparison. TECHNIQUE: Grayscale, color and duplex Doppler sonography of the arterial systems of both lower extre mities was performed. FINDINGS: Extensive atherosclerotic plaque is noted within the right lower extremity. Ankle brachial indices could not be obtained due to open wounds. There is triphasic flow within the right common fem oral artery. Note is made of occlusion of the proximal to mid aspect of the right superficial femoral artery with distal reconstitution. There is monophasic flow within the distal right superficial femo ral artery. There is monophasic flow within the right popliteal artery. Right calf vessels are diffic ult to assess in this patient. There is dampened, monophasic flow within the proximal right posterior tibial artery. No flow is identified within the distal right posterior tibial artery. The right zulma elizabeth artery has monophasic flow proximally with no flow within the mid to distal aspect. There is mon ophasic flow within the proximal right posterior tibial artery with no flow identified within the dis meg right posterior tibial artery. There is monophasic flow within the right dorsalis pedis. Extensive atherosclerotic plaque within the left lower extremity is also noted. There is monophasic f low within the left common femoral artery. There is occlusion of the proximal to mid left superficial femoral artery. Distal reconstitution through collaterals is noted with monophasic flow within the d istal left superficial femoral artery. There is monophasic flow within the left popliteal artery. The re is also monophasic flow within the left posterior tibial and peroneal arteries as well as the ante rior tibial artery. The distal left anterior tibial artery is occluded. There is monophasic flow with in the left dorsalis pedis. IMPRESSION: Extensive atherosclerotic plaque within the bilateral lower extremities with occlusion o f the bilateral superficial femoral arteries with distal reconstitution. Dampened, monophasic flow wi thin the bilateral calf vessels with multiple sites of occlusion, as described above. ACT 112: Negative or not required by law. Electronically signed by: Jaime Bloom M.D. 05/08/2020 8:00 AM
[2020-05-08] MEDS: ASPIRIN 81 MG ECTAB PO SCH (08:58)
[2020-05-08] MEDS: SIMVASTATIN 40 MG TAB PO SCH (08:59)
[2020-05-08] MEDS: lisinopril 20 MG TAB PO SCH (08:59)
[2020-05-08] MEDS: FUROSEMIDE 40 MG in SYRINGE 0 ML IV SCH (08:59)
[2020-05-08] MEDS: CLOPIDOGREL BISULFATE 75 MG TAB PO SCH (08:59)
[2020-05-08] MEDS ORDERED: FUROSEMIDE 40 MG/4 ML VIAL IV SCH (09:00)
[2020-05-08] MEDS ORDERED: GABAPENTIN 100 MG CAP PO SCH (09:00)
--- NOTE | 2020-05-08 09:36 | Heart Failure Consultation ---
Date of Consultation May 08, 2020 Assessment & Plan (1) Peripheral vascular disease: (2) 3-vessel coronary artery disease: (3) Acute systolic (congestive) heart failure: (4) Cardiomyopathy: Acute systolic CHF: Patient presented with increased lower extremity edema and weeping blisters, most likely secondary to his severe PAD with possible venous insufficiency . He denies chest pain, SOB, orthopnea, cough, or fatigue. His weight has been stable at home, 165 lb. He has been able to maintain his exercise regimen. Despite the lack of pulmonary symptoms at presentation, he had evidence of pulmonary edema with elevated ProBNP. Echocardiogram now demonstrates severely reduced EF 25-30%. He was initially hypervolemic on admission and was treated with IV Lasix. Now appears near euvolemic on exam. His weight is below his typical try weight. Kidney function and electrolytes are stable. Could likely transition to oral diuretic regimen soon. Continue daily standing weights. Low sodium diet. Strict I&Os. Cardiomyopathy: Newly diagnosed. EF 25-30% with global hypokinesis. Would consi rashad ischemic work up given his history of CAD. Discussed with Dr. Escalera, he plans to see and further discuss with the patient. He is on appropriate guideline based therapy including Metoprolol succinate 150 mg BID and Lisinopril 20 mg daily. Would recommend transitioning from Lisinopril to Entresto to optimize his therapy. He would require 36 hour wash out period. Could also consider the addition of Spironolactone. Continue to titrate as BP and heart rate allow. If no improvement in LV systolic function after 3 months of optimal therapy, would consider ICD. PVD: Patient with a long stand history of severe arterial disease. He's had multiple endovascular intervention attempts that were unsuccessful. Most recently he's been considering fem/pop bypass with Dr. Rodríguez. His currently wounds may be more consistent with venous insufficiency. Wound care has been consulted as well as Dr. Ramos. Disposition: Continue to follow during hospitalization. Plan to enroll in [facility] heart failure program for volume management and aggressive titration protocol. Patient was discussed with Dr. Escalera. History of Present Illness Attending Physician: Nany Lopes MD Mr. Goodman is a very pleasant 84-year-old man with a history of diabetes on oral therapy, hypertension, coronary artery disease status post PCI with prior stents and prior slow healing left lower extremity ulceration/osteomyelitis in the setting of of peripheral arterial disease. He typically follows with Dr. Escalera. He has history of severe PAD. Initially seen at the wound clinic in October 2017 in the setting of ulcer on the distal aspect of the second digit of his left foot noted initially around May 2017. Was noted to have evidence of ost eomyelitis, treated with prolonged antibiotics per ID. Underwent lower extremity arterial duplex in 09/2017, which showed severe-critical TBIs, right 0.29 56 mmHg, left 0.2 38 mmHg. Ultrasound showed an occluded mid left SFA and left GALA with nonobstructive peroneal disease. On 04/01/18 underwent angiogram with attempted mid left SFA revascularization. Angiogram demonstrated left lower extremity heavily calcified mid SFA subtotal occlusion with distal SFA reconstitution and single vessel runoff to the foot via CHEMICAL ANALYTICAL SAMPLER. Right lower extremity mid SFA occlusion with reconstitution in distal SFA with single vessel runoff to the foot via CHEMICAL ANALYTICAL SAMPLER. Endovascular intervention to mid SFA was unsuccessful due to inability to cross antegrade/re-enter true lumen. Left lower extremity wound eventually healed. Further attempted intervention deferred. In 03/2020 he was evaluated by Dr. Rodríguez in [place] for a repeat attempt A/CHEMICAL ANALYTICAL SAMPLER of the left mid SFA which was unsuccessful. They are now planning to discuss fem/pop bypass. Patient presented to the ED yesterday with complaints of increased edema and weeping from his lower extremities. Patient denies any other symptoms of heart failure including shortness of breath, orthopnea, cough, or fatigue leading up to admission. He does weigh himself at home and denies any recent weight gain. He goes to the gym 3-4 times per week and denies any change in exercise tolerance. He has no prior history of heart failure and did not require diuretic therapy prior to admission. Patient states over the past 2 weeks his lower extremity edema has progressively gotten worse. He has multiple blisters on the legs which are now open. He did have evidence of pulmonary edema on CXR. ProBNP is elevated at 7k. Echocardiogram in 2019 with preserved EF. Repeat echocardiog brody now demonstrates severely reduced systolic function, EF 25-30%. He's resting comfortably in bed this morning. He denies chest pain, shortness of breath, orthopnea, or worsening edema. He's had 2 doses of Lasix 40 mg IV. He's negative 1.1 L so far. Weight this am is 157 lb. His typical dry weight at home is approximately 165 lb. Kidney function and electrolytes are stable this am. Telemetry reviewed, sinus rhythm with PVCs, rate 90s-100s. SocHx: Patient lives at home with his in [place]. They are fairly independent and continue to live an active lifestyle. He denies any history of tobacco use. He drinks alcohol occasionally. He is retired from [employer]. FamHx: Hyperlipidemia. Denies history of CA or premature heart disease. Allergies Allergy/AdvReac Type Severity Reaction Status Date / Time Aminoglycosides Allergy Mild DERMATITIS Verified 05/04/20 09:39 bacitracin Allergy Mild DERMATITIS Verified 05/04/20 09:39 neomycin Allergy Mild DERMATITIS Verified 05/04/20 09:39 polymyxin B Allergy Mild DERMATITIS Verified 05/04/20 09:39 Home Medications Medication Instructions Recorded Confirmed Type multivitamin 1 tab PO QAM 12/02/17 05/07/20 History nitroglycerin 1 tab SUBLINGUAL UD PRN 12/02/17 05/07/20 History acetaminophen [Tylenol Extra 1,000 mg PO Q6H PRN 07/14/18 05/07/20 History Strength] vit C-vit [id number] ox-lutein 1 cap PO DAILY cap 09/02/18 05/07/20 History 226 mg-200 unit-5 mg-0.8 mg capsule vitamin B comp and C no.3 15 mg-10 1 cap PO DAILY 09/02/18 05/07/20 History mg-50 mg-5 mg-300 mg capsule metformin 500 mg tablet,extended 500 mg PO BID #180 tab 08/20/19 05/07/20 Rx release 24 hr metoprolol succinate 100 mg 150 mg PO BID #270 tab 08/20/19 05/07/20 Rx tablet,extended release 24 hr lisinopril 10 mg tablet 20 mg PO DAILY #180 tab 12/13/19 05/07/20 Rx glimepiride 1 mg tablet 1 mg PO QAM #90 tab 03/15/20 05/07/20 Rx simvastatin 40 mg tablet 40 mg PO DAILY #90 tab 03/20/20 05/07/20 Rx aspirin [Aspir-Low] 81 mg PO DAILY 05/07/20 05/07/20 History clopidogrel [Plavix] 75 mg PO DAILY 05/07/20 05/07/20 History diphenhydramine-acetaminophen 1 tab PO HS 05/07/20 05/07/20 History [Tylenol PM Extra Strength] Patient History Medical History 3-vessel coronary artery disease Acute hyponatremia 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 Cataract Closed head injury Compression fx, thoracic spine Diabetes mellitus, type 2 DENIES NEUROPATHY Foot pain Hearing decreased History of prostate cancer 15 YEARS AGO History of SCC (squamous cell carcinoma) of skin Hyperlipidemia Hypertension Hyponatremia Laceration of blood vessel of right index finger, initial encounter Non-pressure chronic ulcer of other part of left foot limited to breakdown of skin 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 Osteoporosis, unspecified PAD (peripheral artery disease) Right knee pain Surgical History History of cardiac cath 15 YEARS AGO, STENT X1, [facility], [facility] [place] History of herniorrhaphy History of radical prostatectomy History of tonsillectomy Hx of cataract surgery RIGHT Family History Father Hyperlipidemia Denies family history of Colon cancer Ovarian cancer Prostate cancer Myocardial infarction Breast cancer Social History Smoking Status: Never smoker Second Hand Exposure: No; Hx Alcohol Use: No Hx Substance Use: No Preferred Language: Pashto Communication Ability: Effective Route Supervisor Required: No Beliefs That Will Affect Care: None marital status: Current Living Situation: Spouse Other Information That Helps Us Care for You: No Feels Safe at Home: Yes Safety Concerns: Feels Safe At This Time Assistive Devices: Glasses Physical Exam Physical Exam: Constitutional: Alert, oriented, in no acute distress HEENT: Head is atraumatic and normocephalic. EOMs intact. Sclera anicteric. Face is symmetric. No perioral cyanosis. Mucous membranes moist. Neck: Supple, no JVD Pulmonary: Normal respiratory effort, clear to auscultation bilaterally Cardiac: Regular rate and rhythm. Normal S1 and S2, no gallops, no rubs, no murmurs Extremities: 2+ radial pulses bilaterally. Right DP/PT pulses diminished. Left DP/PT nonpalpable. 1+ edema at the ankles. Open blisters BL, serous drainage. Abdomen: Normal bowel sounds, soft, non-tender, no abdominal mass palpated Skin: Normal skin color, turgor. Hyperpigmentation noted, likely from chronic arterial disease. Neurological: Patient is awake, alert, and oriented. Pleasant and cooperative. Answers questions appropriately. Speech is clear. Normal movement in all 4 extremities. Results & Data ([facility]) Vital Signs (Past 12 Hours) Vital Signs Temp Pulse Pulse Resp BP BP Pulse Ox 05/08/20 07:44 97.5 F L 89 16 122/71 97 05/08/20 04:09 97.5 F L 88 18 112/73 95 05/07/20 23:50 97.7 F 100 H 16 137/73 95 05/07/20 22:00 89 20 98 05/07/20 21:30 89 18 97 Coding Level of Care Code 68726 Initial Inpt Care Lvl 3 Diagnoses Peripheral vascular disease I73.9 3-vessel coronary artery disease I25.10 Acute systolic (congestive) heart failure I50.21 Cardiomyopathy I42.9
[2020-05-08] MEDS: GABAPENTIN 100 MG CAP PO PRN (10:28)
--- NOTE | 2020-05-08 14:56 | XCELERA ---
[id number]
--- NOTE | 2020-05-09 04:46 | Billing Data ---
Date of Service May 09, 2020 Coding Level of Care Code 11326 Initial Inpt Care Lvl 3
[2020-05-09 06:54] LABS: Hematocrit (blood only) 36.6 % (42-52); Hemoglobin 12.1 g/dL (14.0-18.0); Mean Corpuscular Hemoglobin 31.2 pg (25-34); Mean Corpuscular Hgb Conc 33.1 g/dL (32-36); Mean Corpuscular Volume 94.3 fL (80-100); Mean Platelet Volume 10.5 fL (7.4-10.4); Platelet Count 206 K/uL (130-400); RDW Coefficient of Variation 14.1 % (11.5-14.5); RDW Standard Deviation 48.3 fL (36.4-46.3); Red Blood Count 3.88 M/uL (4.7-6.1); White Blood Count 7.69 K/uL (4.8-10.8)
[2020-05-09 07:19] LABS: BUN Creatinine Ratio 21.3 (10-20); Calcium 8.3 mg/dl (8.5-10.1); Creatinine Clr Calc Pharmacy 64.5 ml/min; Est GFR (African American) 92.1; Est GFR (Non-African American) 79.4; Phosphorus 2.8 mg/dl (2.5-4.9)
[2020-05-09] MEDS: GABAPENTIN 100 MG CAP PO PRN (08:24)
[2020-05-09] MEDS: METOPROLOL SUCC 50MG EXT REL TAB PO SCH ×2 (08:24→19:34)
[2020-05-09] MEDS: ASPIRIN 81 MG ECTAB PO SCH (08:24)
[2020-05-09] MEDS: CLOPIDOGREL BISULFATE 75 MG TAB PO SCH (08:24)
[2020-05-09] MEDS: FUROSEMIDE 40 MG in SYRINGE 0 ML IV SCH (08:24)
[2020-05-09] MEDS: SIMVASTATIN 40 MG TAB PO SCH (08:24)
[2020-05-09] MEDS: lisinopril 20 MG TAB PO SCH (08:24)
--- NOTE | 2020-05-09 08:36 | Hospitalist Progress Note ---
Date of Service May 09, 2020 Assessment & Plan (1) Acute systolic (congestive) heart failure: lower extremity and pulmonary edema weight 76kg with associated troponin likely related to supply demand mismatch 2018 echo with EF 55%, stage 1 diastolic dysfunction 3-1 repeat echo lasix 40mg IV daily strict ins and outs daily weights CHF consult 3-2 echo with EF 25-30%, mild to moderate mitral regurgitation and tricuspid regurgitation weight 71.7kg -- improving nicely with lasix cardiology considering ischemic evaluation continue metoprolol 150 bid stop lisinopril in order to transition to entresto -- will need 36hours off lisinopril so start entresto on 3-5 consider adding aldactone if no improvement in EF after 3 months, consider ICD (2) Elevated troponin: likely related to supply demand mismatch (3) PAD (peripheral artery disease): continue aspirin and plavix 3-[address] Ramos will do LLE angiogram with intervention prior to left foot surgery (4) Ulcer of toe of left foot: 3-2 MRI left foot with likely osteo of 1st and 3rd digits consult orthopedic surgery Dr. Brumfield (5) 3-vessel coronary artery disease: continue aspirin and plavix 3-2 cardio considering cardiac cath (6) Hyponatremia: 2-28 sodium 130 3-1 sodium 134, improving with diuresis 3-2 sodium 133, stable (7) Diabetes mellitus, type 2: holding oral meds continue low ssi 3-2 well controlled (8) Hyperlipidemia: cont statin (9) Hypertension: cont lisinopril, metoprolol 3-2 well controlled (10) Non-pressure chronic ulcer of other part of left foot limited to breakdown of skin: Admission and Anticipated Discharge Date Admission Date: May 07, 2020 Subjective Patient eating lunch during my visit Has no complaints Reports that breathing and lower extremity edema have improved and are at baseline. Denies difficulty with bowel or bladder Left foot with minimal pain Left leg bullae stopped draining Review of Systems Constitutional: no fever, no chills, no fatigue, no weakness, no anorexia, no weight loss and no weight gain Ear, Nose, Mouth, Throat: no nasal congestion, no sore throat and no dysphagia Respiratory: no cough and no dyspnea Cardiovascular: no chest pain, no dyspnea on exertion, no orthopnea and no palpitations Gastrointestinal: no abdominal pain, no nausea, no vomiting, no hematemesis, no dysphagia, no constipation, no diarrhea/loose stools, no blood in stools and no melena Genitourinary: no dysuria and no urinary frequency Musculoskeletal: no back pain, no joint pain, no myalgia and no muscle weakness Integumentary: no rash, no lesions, no skin ulcer, no erythema, no dry skin and no pruritus Neurologic: no falls, no localized weakness, no generalized weakness, no numbness, no paresthesia, no tremor(s) and no headache(s) Psychiatric: no depression, no suicidal ideation, no homicidal ideation and no anxiety Endocrine: no cold intolerance and no heat intolerance Hematologic / Lymphatic: no easy bleeding and no easy bruising Physical Exam Constitutional: well developed and well nourished; no acute distress Eyes: PERRL, conjunctivae normal, anicteric sclerae ENMT: Mouth: oral mucous membranes not dry Respiratory: normal respiratory effort; no respiratory distress and no labored breathing Auscultation: lungs clear to auscultation bilaterally; no crackles, no rales, no rhonchi and no wheezes Cardiovascular: Rate/Rhythm: regular rate and regular rhythm Heart Sounds: no murmur and no cardiac rub Vessels: normal peripheral pulses and radial pulses present; no JVD Extremities: + edema (1+ bilateral LE edema) Gastrointestinal (Abdomen): Inspection/Auscultation: abdomen normal to inspection and normal bowel sounds; abdomen not distended Percussion/Palpation: abdomen soft; abdomen nontender, no guarding, abdomen not rigid and no hepatosplenomegaly Musculoskeletal: Head/Neck/Chest: normocephalic and head atraumatic Spine: no cervical spinal tenderness, no cervical muscular tenderness, no thoracic spinal tenderness and no lumbar spinal tenderness Skin: + erythema (large bullae on medial left leg, weeping serous fluid) Neurologic: CN's II-XI intact bilaterally and moves all extremities Motor/Sensory: no tremor and no sensory deficit Psychiatric: Orientation: alert, oriented to person, oriented to place and oriented to time Apperance: appropriately groomed; not disheveled Affect: euthymic affect; no anxious affect and no tearful affect Results & Data Results & Data ([facility]) Vital Signs (Past 12 Hours) Vital Signs Temp Pulse Resp BP Pulse Ox 05/09/20 07:22 36.6 C 90 17 109/69 94 05/09/20 04:06 37.0 C 89 17 100/65 91 05/08/20 23:13 36.9 C 97 H 19 105/67 95 Laboratory Results Abnormal lab results 05/09/20 05/09/20 Range/Units 06:21 06:21 RBC 3.88 L (4.7-6.1) M/uL Hgb 12.1 L (14.0-18.0) g/dL Hct 36.6 L (42-52) % RDW Std Deviation 48.3 H (36.4-46.3) fL MPV 10.5 H (7.4-10.4) fL Sodium 133 L (136-145) mmol/L BUN 19 H (7-18) mg/dl BUN/Creatinine Ratio 21.3 H (10-20) Glucose 115 H (70-99) mg/dl Calcium 8.3 L (8.5-10.1) mg/dl Medications Administered Current Inpatient Medications Acetaminophen (Acetaminophen 325 Mg Tab) 650 mg PO Q4H PRN PRN Reason: Pain or Fever Stop: 06/07/20 00:04 Al Hydrox/Mg Hydrox/Simethicone (Aluminum/Magnesium Susp 30 Ml Udc) 15 ml PO Q4H PRN PRN Reason: Dyspepsia Stop: 06/07/20 00:04 Aspirin (Aspirin 81 Mg Ectab) 81 mg PO DAILY CARLO Stop: 06/07/20 08:59 Last Admin: 05/09/20 08:24 Dose: 81 mg Documented by: Clopidogrel Bisulfate (Clopidogrel Bisulfate 75 Mg Tab) 75 mg PO DAILY CARLO Stop: 06/07/20 08:59 Last Admin: 05/09/20 08:24 Dose: 75 mg Documented by: Gabapentin (Gabapentin 100 Mg Cap) 100 mg PO BID PRN PRN Reason: pain Stop: 06/07/20 08:59 Last Admin: 05/09/20 08:24 Dose: 100 mg Documented by: Furosemide 40 mg/ Syringe 4 mls @ 4 mls/min IV QAM CARLO Stop: 06/07/20 08:59 Last Admin: 05/09/20 08:24 Dose: 4 mls/min Documented by: Lisinopril (Lisinopril 20 Mg Tab) 20 mg PO DAILY CARLO Stop: 06/07/20 08:59 Last Admin: 05/09/20 08:24 Dose: 20 mg Documented by: Magnesium Hydroxide (Magnesium Hydroxide Susp 30 Ml Udc) 30 ml PO Q12H PRN PRN Reason: Constipation Stop: 06/07/20 00:04 Metoprolol Succinate (Metoprolol Succ 50mg Ext Rel Tab) 150 mg PO BID COUNTS INCLUDE 234 BEDS AT THE [facility] Stop: 06/06/20 23:58 Last Admin: 05/09/20 08:24 Dose: 150 mg Documented by: Ondansetron HCl (Ondansetron Inj 2 Mg/Ml 2 Ml Vial) 4 mg IV Q6H PRN PRN Reason: Nausea Stop: 06/07/20 00:04 Polyethylene Glycol (Polyethylene (Miralax) 17 Gm Pack) 17 gm PO DAILY PRN PRN Reason: Constipation Stop: 06/07/20 00:04 Simvastatin (Simvastatin 40 Mg Tab) 40 mg PO DAILY COUNTS INCLUDE 234 BEDS AT THE [facility] Stop: 06/07/20 08:59 Last Admin: 05/09/20 08:24 Dose: 40 mg Documented by: PG Care Time/CCT Total # of Minutes Spent Total Time Spent with Patient: Total time spent is greater than 50% in coordination of care (as documented) at patient's floor/unit and/or counseling patient: Coding Level of Care Code 81990 Subseq Hosp Care Lvl 2 Diagnoses Acute systolic (congestive) heart failure I50.21 Elevated troponin R77.8 PAD (peripheral artery disease) I73.9 Ulcer of toe of left foot L97.521 Non-pressure ulcer stage: limited to breakdown of skin 3-vessel coronary artery disease I25.10 Hyponatremia E87.1 Diabetes mellitus, type 2 E11.59 Diabetes mellitus complication detail: with other circulatory complications Diabetes mellitus complication status: with circulatory complication Diabetes mellitus [facility] insulin use: without [facility] use Hyperlipidemia E78.5 Hyperlipidemia type: unspecified Hypertension I10 Hypertension type: essential hypertension Non-pressure chronic ulcer of other part of left foot limited to breakdown of skin L97.521 (1) Diabetes mellitus, type 2 Diabetes mellitus complication detail: with other circulatory complications Diabetes mellitus complication status: with circulatory complication Diabetes mellitus [facility] insulin use: without [facility] use Qualified Code(s): E11.59 - Type 2 diabetes mellitus with other circulatory complications (2) Hyperlipidemia Hyperlipidemia type: unspecified Qualified Code(s): E78.5 - Hyperlipidemia, unspecified (3) Hypertension Hypertension type: essential hypertension Qualified Code(s): I10 - Essential (primary) hypertension (4) Ulcer of toe of left foot Non-pressure ulcer stage: limited to breakdown of skin Qualified Code(s): L97.521 - Non-pressure chronic ulcer of other part of left foot limited to breakdown of skin
--- NOTE | 2020-05-09 09:57 | Consultation ---
Date of Consultation May 09, 2020 Assessment & Plan (1) PAD (peripheral artery disease): Pt with severe PAD on US, but good cap refill on exam and without rest pain or acute sx. Does have ulcerations to L toes, consider MRI to eval for osteomyelitis and wound clinic referral. Will require LLE angio with intervention by Dr Ramos for surgical planning, however, we recommend this be done after cardiac evaluation due to acute CHF. Can be arranged as outpt after discharge. Please call if needed. History of Present Illness Reason for Consultation: PAD Attending Physician: Nany Lopes MD History of Present Illness 84 yo m with multiple medical problems, including CAD, HTN, neuropathy, DMII, SCC, PAD, hyperlipdemia, admitted with acute CHF, seen in consultation today for PAD and L toe ulcers. Pt is poor historian. Pt states he has been told he had PAD for a few years and has had multiple angios, but no stenting was able to be performed. According to records, pt had angio by Dr Tin Escalera in 2019 d/t ulcerations, and pt states has had at least 3 subsequent angios by another vascular Dr at [facility], possibly Dr Rodríguez. Was told he will need a LLE bypass d/t ulcers on 1st and 3rd toes. Believes ulcers have been present for about 1-2 months, but unsure; also states he was told ulcers are healed. Pt admitted currently with acute CHF and new decrease in EF from 55% in 2019 to 25% now. Admits BLE edema and weeping that started a few days prior to admission. Denies rest pain, toe discoloration, claudication. Denies LENZ, fever, chest pain, palpitations, SOB, cough, abd pain, NICOLE, N/V, orthopnea, other complaints. BLE arterial US demonstrates severe disease BLE, noncompressible TAVON. Allergies Allergy/AdvReac Type Severity Reaction Status Date / Time Aminoglycosides Allergy Mild DERMATITIS Verified 05/04/20 09:39 bacitracin Allergy Mild DERMATITIS Verified 05/04/20 09:39 neomycin Allergy Mild DERMATITIS Verified 05/04/20 09:39 polymyxin B Allergy Mild DERMATITIS Verified 05/04/20 09:39 Home Medications Medication Instructions Recorded Confirmed Type multivitamin 1 tab PO QAM 12/02/17 05/07/20 History nitroglycerin 1 tab SUBLINGUAL UD PRN 12/02/17 05/07/20 History acetaminophen [Tylenol Extra 1,000 mg PO Q6H PRN 07/14/18 05/07/20 History Strength] vit C-vit [id number] ox-lutein 1 cap PO DAILY cap 09/02/18 05/07/20 History 226 mg-200 unit-5 mg-0.8 mg capsule vitamin B comp and C no.3 15 mg-10 1 cap PO DAILY 09/02/18 05/07/20 History mg-50 mg-5 mg-300 mg capsule metformin 500 mg tablet,extended 500 mg PO BID #180 tab 08/20/19 05/07/20 Rx release 24 hr metoprolol succinate 100 mg 150 mg PO BID #270 tab 08/20/19 05/07/20 Rx tablet,extended release 24 hr lisinopril 10 mg tablet 20 mg PO DAILY #180 tab 12/13/19 05/07/20 Rx glimepiride 1 mg tablet 1 mg PO QAM #90 tab 03/15/20 05/07/20 Rx simvastatin 40 mg tablet 40 mg PO DAILY #90 tab 03/20/20 05/07/20 Rx aspirin [Aspir-Low] 81 mg PO DAILY 05/07/20 05/07/20 History clopidogrel [Plavix] 75 mg PO DAILY 05/07/20 05/07/20 History diphenhydramine-acetaminophen 1 tab PO HS 05/07/20 05/07/20 History [Tylenol PM Extra Strength] Patient History Medical History 3-vessel coronary artery disease Acute hyponatremia 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 Cataract Closed head injury Compression fx, thoracic spine Diabetes mellitus, type 2 DENIES NEUROPATHY Foot pain Hearing decreased History of prostate cancer 15 YEARS AGO History of SCC (squamous cell carcinoma) of skin Hyperlipidemia Hypertension Hyponatremia Laceration of blood vessel of right index finger, initial encounter Non-pressure chronic ulcer of other part of left foot limited to breakdown of skin 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 Osteoporosis, unspecified PAD (peripheral artery disease) Right knee pain Surgical History History of cardiac cath 15 YEARS AGO, ST[place]1, [facility] [place] [facility] [place] History of herniorrhaphy History of radical prostatectomy History of tonsillectomy Hx of cataract surgery RIGHT Family History Father Hyperlipidemia Denies family history of Colon cancer Ovarian cancer Prostate cancer Myocardial infarction Breast cancer Social History Smoking Status: Never smoker Second Hand Exposure: No; Hx Alcohol Use: No Hx Substance Use: No Preferred Language: Cymraes Communication Ability: Effective Building Surveyor Required: No Beliefs That Will Affect Care: None marital status: Current Living Situation: Spouse Other Information That Helps Us Care for You: No Feels Safe at Home: Yes Safety Concerns: Feels Safe At This Time Assistive Devices: Glasses Review of Systems Review of Systems: All systems reviewed & are unremarkable except as noted in HPI & below Physical Exam Constitutional: WD/WN, vitals as above cooperative and comfortable; not in distress Eyes: PERRL, conjunctivae normal, anicteric sclerae ENMT: Ears: no hearing impairment Neck: trachea midline Respiratory: Auscultation: + diminished lung sounds and + crackles (basilar) Cardiovascular: Rate/Rhythm: regular rate and regular rhythm Vessels: femoral pulses present (+3 RLE, +2 LLE), posterior tibial pulses present (with doppler only), dorsalis pedis pulses present (with doppler only) and radial pulses present; + abnormal peripheral pulses Extremities: normal capillary refill and + edema Gastrointestinal (Abdomen): normal bowel sounds, soft, nontender, no hepatosplenomegaly Musculoskeletal: no cyanosis or clubbing, extremities motor strength 5/5 Skin: + ulcer (LLE 1st and 3rd toes with small ulcerations noted. great toe pink and edema) and + crusts (BLE thin skin lower legs with superficial abrasions/serous weeping) Neurologic: moves all extremities and awake; no focal motor deficits Psychiatric: Orientation: alert and oriented x 3 Affect: + anxious affect Results & Data ([place]) Vital Signs (Past 12 Hours) Vital Signs Temp Pulse Resp BP Pulse Ox 05/09/20 07:22 36.6 C 90 17 109/69 94 05/09/20 04:06 37.0 C 89 17 100/65 91 05/08/20 23:13 36.9 C 97 H 19 105/67 95
--- NOTE | 2020-05-09 11:19 | Electrocardiogram Report ---
Test Reason : Blood Pressure : / mmHG Vent. Rate : 091 BPM Atrial Rate : 091 BPM P-R Int : 194 ms QRS Dur : 090 ms QT Int : 388 ms P-R-T Axes : 069 057 221 degrees QTc Int : 477 ms Sinus rhythm with occasional Premature ventricular complexes Possible Left atrial enlargement Marked ST abnormality, possible anterior subendocardial injury T wave abnormality, consider inferior ischemia Abnormal ECG When compared with ECG of 07-MAY-2020 18:19, Borderline criteria for Inferior infarct are no longer Present ST more depressed Anterior leads T wave inversion more evident in Anterior leads Confirmed by Julian Adkins ([id number]) on 05/09/2020 11:19:00 AM Referred By: REFERRED SELF Confirmed By:Julian Adkins
--- NOTE | 2020-05-09 14:28 | Magnetic Resonance Report ---
MR foot LT w/o con HISTORY: 84 years-old Male L toe ulcers, possible osteomyelitis soft tissue wound of the left great toe. Clinical concern for osteomyelitis COMPARISON: Lower extremity arterial ultrasound 05/07/2020 TECHNIQUE: Multiplanar multisequence MRI of the left forefoot was obtained without the use of IV cont rast FINDINGS: Motion degraded exam Cutaneous marker is noted overlying the medial aspect of the left great toe. There is moderate diffus e subcutaneous and deep tissue edema throughout the foot with moderate atrophy of the intrinsic muscu lature, possibly secondary to chronic denervation changes no fluid collection to suggest abscess. The imaged flexor and extensor tendons appear intact. Notably, the interosseous band of the Lisfranc lig ament is identified and appears intact. No intermetatarsal bursitis or Rivas's neuroma identified. There is multifocal osteoarthritis which is predominantly mild to moderate. There is mild to moderate bone marrow edema involving the distal aspect of the first distal phalanx with preserved T1 signal. No discrete osseous erosion. There is moderate marrow edema involving the third distal phalanx with m ildly decreased T1 marrow signal and distal cortical indistinctness which is best seen on images 21 o f the sagittal T1 and STIR series. Mild nonspecific marrow edema is noted throughout the fifth phalan ges without osseous erosion identified. IMPRESSION: 1. Motion degraded exam. 2. Mild to moderate bone marrow edema involves the distal aspect of the first distal phalanx with pre served T1 signal and no discrete cortical erosions. Findings may be reactive or represent early devel oping osteomyelitis. Follow-up recommended. 3. Moderate marrow edema within the third distal phalanx with mild cortical indistinctness suspicious for developing osteomyelitis. Correlate with clinical exam findings. ACT 112: Negative or not required by law. The above report was generated using voice recognition software. It may contain grammatical, syntax o r spelling errors. Electronically signed by: Brody Bellamy M.D. 05/09/2020 2:27 PM
--- NOTE | 2020-05-09 14:45 | Cardiology Progress Note ---
Date of Service May 09, 2020 Assessment & Plan (1) Acute systolic (congestive) heart failure: 1. Acute systolic heart failure 2. Presumed ischemic cardiomyopathy, EF 25%, apical akinesis, new inferior wall motion abnormality 3. Multivessel CADstatus post PCI to LAD in 2005 4. PADknown bilateral SFA occlusions, severe tibial disease 5. Bilateral lower extremity ulcerations 6. Type 2 diabetes Patient appears well compensated today without residual significant congestion. From a cardiac standpoint has been largely asymptomatic and denies any chest pain. Reviewed repeat echocardiogram which shows new severe LV dysfunction with regional wall motion abnormalities. In the setting of patient's history of multivessel disease and prior LAD stenting, mildly elevated troponin and ECG with dynamic ST changes suspect LV dysfunction likely secondary to progressive CAD. We discussed potentially repeating cardiac catheterization to evaluate for potential revascularization options. At this time as patient is largely asymptomatic and wishes to defer catheterization which I feel is reasonable. We will optimize guideline directed medical therapy for his cardiomyopathy. At present patient only with superficial ulcerations without evidence of significant infection. Potential benefit for lower extremity revascularization for PAD seems limited. Transition IV Lasix to p.o. Lasix 40 mg daily Continue current Toprol. Agree with starting Entresto Continue DAPT with aspirin, clopidogrel Wound care follow-up on discharge From a cardiac standpoint with multivessel CAD/ICM would recommend avoiding open vascular surgery unless ulcerations progress where at high risk for limb loss. Close heart failure follow-up on discharge. Admission and Anticipated Discharge Date Admission Date: May 07, 2020 Subjective Patient feeling well today. Denies any chest pain. Denies any significant shortness of breath. No pain at rest and lower extremities bilaterally. Review of Systems Review of Systems: All systems reviewed & are unremarkable except as noted in HPI & below Physical Exam Physical Exam: General: Comfortable, no acute distress HEENT: Sclerae anicteric, mucous membranes moist Lungs: Clear to auscultation bilaterally Cardiac: Regular rate and rhythm, no murmurs. No JVD. Abdomen: Soft, positive bowel sounds. Extremities: Warm, right lower extremity with distal erythema/chronic venous stasis changes, superficial venous appearing ulceration over medial aspect of right luevano. Ulceration over left luevano dressed. Nonpalpable DP/PT pulses bilaterally normal capillary refill bilaterally. Superficial ulcerations over first and third digit on left foot. No surrounding erythema or signs of infection Neuro: Nonfocal Psych: Alert orient x3, normal affect and mood Results & Data ([facility]) Vital Signs (Past 12 Hours) Vital Signs Temp Pulse Resp BP Pulse Ox 05/09/20 11:00 98.1 F 79 18 99/62 L 96 05/09/20 07:22 97.9 F 90 17 109/69 94 05/09/20 04:06 98.6 F 89 17 100/65 91 PG Care Time/CCT Total # of Minutes Spent Total Time Spent with Patient: Total time spent is greater than 50% in coordination of care (as documented) at patient's floor/unit and/or counseling patient: Coding Level of Care Code 43479 Subseq Hosp Care Lvl 3 Diagnoses Acute systolic (congestive) heart failure I50.21
--- NOTE | 2020-05-09 19:47 | Orthopedic Consultation ---
Date of Consultation May 09, 2020 Assessment & Plan (1) Ulcer of toe of left foot: Left foot 1st and 3rd digit distal ulceration, chronic in nature, does not appear grossly infected. Continue IV abx and wound care at this time, WBAT thru the heel, rec post-operative shoe for ambulation. Patient is to have re- vascularization surgery which should help with healing. Will monitor at this time, requesting patient follow up within [address] Brumfield, . Thank you for the consultation. History of Present Illness Reason for Consultation: Left foot toe ulcerations Attending Physician: Nany Lopes MD History of Present Illness The patient is an 84 year old male with PMHx noted below who was admitted to [facility] secondary to CHF exacerbation and worsening peripheral edema. The patient reports left toe ulcers have been present for "several months", follows with podiatry. Has hx for several LLE angiograms. Seen by vascular surgery during hospital stay and plan for LLE angio once stable from a cardiac standpoint. Patient had MRI of left foot with question osteomyelitis. Patient currently denies fevers, chills, nausea, vomiting, SOB or chest pain. Allergies Allergy/AdvReac Type Severity Reaction Status Date / Time Aminoglycosides Allergy Mild DERMATITIS Verified 05/04/20 09:39 bacitracin Allergy Mild DERMATITIS Verified 05/04/20 09:39 neomycin Allergy Mild DERMATITIS Verified 05/04/20 09:39 polymyxin B Allergy Mild DERMATITIS Verified 05/04/20 09:39 Home Medications Medication Instructions Recorded Confirmed Type multivitamin 1 tab PO QAM 12/02/17 05/07/20 History nitroglycerin 1 tab SUBLINGUAL UD PRN 12/02/17 05/07/20 History acetaminophen [Tylenol Extra 1,000 mg PO Q6H PRN 07/14/18 05/07/20 History Strength] vit C-vit [id number] ox-lutein 1 cap PO DAILY cap 09/02/18 05/07/20 History 226 mg-200 unit-5 mg-0.8 mg capsule vitamin B comp and C no.3 15 mg-10 1 cap PO DAILY 09/02/18 05/07/20 History mg-50 mg-5 mg-300 mg capsule metformin 500 mg tablet,extended 500 mg PO BID #180 tab 08/20/19 05/07/20 Rx release 24 hr metoprolol succinate 100 mg 150 mg PO BID #270 tab 08/20/19 05/07/20 Rx tablet,extended release 24 hr glimepiride 1 mg tablet 1 mg PO QAM #90 tab 03/15/20 05/07/20 Rx simvastatin 40 mg tablet 40 mg PO DAILY #90 tab 03/20/20 05/07/20 Rx aspirin 81 mg PO DAILY 05/07/20 05/07/20 History clopidogrel [Plavix] 75 mg PO DAILY 05/07/20 05/07/20 History diphenhydramine-acetaminophen 1 tab PO HS 05/07/20 05/07/20 History [Tylenol PM Extra Strength] furosemide 40 mg PO QAM 30 Days #30 tab 05/10/20 Rx gabapentin 100 mg PO BID 30 Days #60 cap 05/10/20 Rx sacubitril-valsartan [Entresto] 1 tab PO BID 30 Days #60 tab 05/10/20 Rx Patient History Medical History 3-vessel coronary artery disease Acute hyponatremia 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 Cataract Closed head injury Compression fx, thoracic spine Diabetes mellitus, type 2 DENIES NEUROPATHY Foot pain Hearing decreased History of prostate cancer 15 YEARS AGO History of SCC (squamous cell carcinoma) of skin Hyperlipidemia Hypertension Hyponatremia Laceration of blood vessel of right index finger, initial encounter Non-pressure chronic ulcer of other part of left foot limited to breakdown of skin 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 Osteoporosis, unspecified PAD (peripheral artery disease) Right knee pain Surgical History History of cardiac cath 15 YEARS AGO, STENT X1, [facility] [place] History of herniorrhaphy History of radical prostatectomy History of tonsillectomy Hx of cataract surgery RIGHT Family History Father Hyperlipidemia Denies family history of Colon cancer Ovarian cancer Prostate cancer Myocardial infarction Breast cancer Social History Smoking Status: Never smoker Second Hand Exposure: No; Hx Alcohol Use: No Hx Substance Use: No Preferred Language: Luxembourgish Communication Ability: Effective Travel Service Consultant Required: No Beliefs That Will Affect Care: None marital status: Current Living Situation: Spouse Feels Safe at Home: Yes Assistive Devices: Glasses and Walker Review of Systems Review of Systems: All systems reviewed & are unremarkable except as noted in HPI & below Constitutional: as per Subjective / HPI Physical Exam Physical Exam: LLE NVSI grossly, decreased sensation at baseline. subcentimeter ulcers distal aspect of the 1st and 3rd digits of the left foot. Well circumscribed without drainage or surrounding erythema. Constitutional: WD/WN, vitals as above Results & Data ([facility]) Vital Signs (Past 12 Hours) Vital Signs Temp Pulse Pulse Resp BP Pulse Ox 05/09/20 19:32 36.9 C 84 18 101/62 96 05/09/20 15:23 36.9 C 76 16 94/58 L 94 05/09/20 11:00 36.7 C 79 18 99/62 L 96 Laboratory Results 05/09/20 05/09/20 Range/Units 06:21 06:21 WBC 7.69 (4.8-10.8) K/uL RBC 3.88 L (4.7-6.1) M/uL Hgb 12.1 L (14.0-18.0) g/dL Hct 36.6 L (42-52) % MCV 94.3 (80-100) fL MCH 31.2 (25-34) pg MCHC 33.1 (32-36) g/dL RDW Std Deviation 48.3 H (36.4-46.3) fL RDW Coeff of Alexandre 14.1 (11.5-14.5) % Plt Count 206 (130-400) K/uL MPV 10.5 H (7.4-10.4) fL Sodium 133 L (136-145) mmol/L Potassium 4.0 (3.5-5.1) mmol/L Chloride 102 (98-107) mmol/L Carbon Dioxide 23 (21-32) mmol/L Anion Gap 8.0 (3-11) BUN 19 H (7-18) mg/dl Creatinine 0.88 (0.6-1.4) mg/dl Est Cr Clr Drug Dosing 64.5 ml/min Est GFR ( Amer) 92.1 Est GFR (Non-Af Amer) 79.4 BUN/Creatinine Ratio 21.3 H (10-20) Glucose 115 H (70-99) mg/dl Calcium 8.3 L (8.5-10.1) mg/dl Phosphorus 2.8 (2.5-4.9) mg/dl Magnesium 2.0 (1.8-2.4) mg/dl Diagnostic Findings MR foot LT w/o con HISTORY: 84 years-old Male L toe ulcers, possible osteomyelitis soft tissue wound of the left great toe. Clinical concern for osteomyelitis COMPARISON: Lower extremity arterial ultrasound 05/07/2020 TECHNIQUE: Multiplanar multisequence MRI of the left forefoot was obtained without the use of IV contrast FINDINGS: Motion degraded exam Cutaneous marker is noted overlying the medial aspect of the left great toe. There is moderate diffuse subcutaneous and deep tissue edema throughout the foot with moderate atrophy of the intrinsic musculature, possibly secondary to chronic denervation changes no fluid collection to suggest abscess. The imaged flexor and extensor tendons appear intact. Notably, the interosseous band of the Lisfranc ligament is identified and appears intact. No intermetatarsal bursitis or Rivas's neuroma identified. There is multifocal osteoarthritis which is predominantly mild to moderate. There is mild to moderate bone marrow edema involving the distal aspect of the first distal phalanx with preserved T1 signal. No discrete osseous erosion. There is moderate marrow edema involving the third distal phalanx with mildly decreased T1 marrow signal and distal cortical indistinctness which is best seen on images 21 of the sagittal T1 and STIR series. Mild nonspecific marrow edema is noted throughout the fifth phalanges without osseous erosion identified. IMPRESSION: 1. Motion degraded exam. 2. Mild to moderate bone marrow edema involves the distal aspect of the first distal phalanx with preserved T1 signal and no discrete cortical erosions. Findings may be reactive or represent early developing osteomyelitis. Follow-up recommended. 3. Moderate marrow edema within the third distal phalanx with mild cortical indistinctness suspicious for developing osteomyelitis. Correlate with clinical exam findings. (1) Ulcer of toe of left foot Non-pressure ulcer stage: limited to breakdown of skin Qualified Code(s): L97.521 - Non-pressure chronic ulcer of other part of left foot limited to breakdown of skin
[2020-05-10 07:45] LABS: Hematocrit (blood only) 36.3 % (42-52); Hemoglobin 12.1 g/dL (14.0-18.0); Mean Corpuscular Hemoglobin 31.7 pg (25-34); Mean Corpuscular Hgb Conc 33.3 g/dL (32-36); Mean Platelet Volume 10.6 fL (7.4-10.4); Platelet Count 195 K/uL (130-400); RDW Coefficient of Variation 14.3 % (11.5-14.5); Red Blood Count 3.82 M/uL (4.7-6.1); White Blood Count 6.93 K/uL (4.8-10.8)
[2020-05-10] MEDS: CLOPIDOGREL BISULFATE 75 MG TAB PO SCH (08:07)
[2020-05-10] MEDS: ASPIRIN 81 MG ECTAB PO SCH (08:07)
[2020-05-10] MEDS: METOPROLOL SUCC 50MG EXT REL TAB PO SCH (08:07)
[2020-05-10] MEDS: FUROSEMIDE 40 MG in SYRINGE 0 ML IV SCH (08:08)
[2020-05-10] MEDS: SIMVASTATIN 40 MG TAB PO SCH (08:09)
[2020-05-10 08:15] LABS: BUN Creatinine Ratio 27.8 (10-20); Calcium 8.8 mg/dl (8.5-10.1); Creatinine Clr Calc Pharmacy 65.4 ml/min; Est GFR (African American) 92.9; Est GFR (Non-African American) 80.2; Phosphorus 2.7 mg/dl (2.5-4.9)
--- NOTE | 2020-05-10 12:34 | Discharge Summary ---
Date of Service May 10, 2020 Principal Diagnosis acute systolic chf Discharge Exam Constitutional well developed and well nourished; no acute distress Eyes PERRL, conjunctivae normal, anicteric sclerae ENMT Mouth: oral mucous membranes not dry Respiratory normal respiratory effort; no respiratory distress and no labored breathing Auscultation: lungs clear to auscultation bilaterally; no crackles, no rales, no rhonchi and no wheezes Cardiovascular Rate/Rhythm: regular rate and regular rhythm Heart Sounds: no murmur and no cardiac rub Vessels: normal peripheral pulses and radial pulses present; no JVD Extremities: + edema (edema has resolved) Gastrointestinal (Abdomen) Inspection/Auscultation: abdomen normal to inspection and normal bowel sounds; abdomen not distended Percussion/Palpation: abdomen soft; abdomen nontender, no guarding, abdomen not rigid and no hepatosplenomegaly Musculoskeletal Head/Neck/Chest: normocephalic and head atraumatic Spine: no cervical spinal tenderness, no cervical muscular tenderness, no thoracic spinal tenderness and no lumbar spinal tenderness Skin + erythema (large bullae on medial left leg, weeping serous fluid) Neurologic CN's II-XI intact bilaterally and moves all extremities Motor/Sensory: no tremor and no sensory deficit Psychiatric Orientation: alert, oriented to person, oriented to place and oriented to time Apperance: appropriately groomed; not disheveled Affect: euthymic affect; no anxious affect and no tearful affect Discharge Data Allergies Allergy/AdvReac Type Severity Reaction Status Date / Time Aminoglycosides Allergy Mild DERMATITIS Verified 05/04/20 09:39 bacitracin Allergy Mild DERMATITIS Verified 05/04/20 09:39 neomycin Allergy Mild DERMATITIS Verified 05/04/20 09:39 polymyxin B Allergy Mild DERMATITIS Verified 05/04/20 09:39 Consultations 05/07/20 19:14 ED Decision to Admit Stat 05/08/20 00:05 Consult Cardiology Routine 05/08/20 14:42 Consult Vascular Surgery Routine 05/09/20 15:10 Consult Orthopedic Surgery Routine Ordered Studies 05/07/20 20:28 US arterial duplex LE BI Urgent 05/09/20 10:29 MR foot LT w/o con Routine Hospital Course (1) Acute systolic (congestive) heart failure: lower extremity and pulmonary edema weight 76kg with associated troponin likely related to supply demand mismatch 2018 echo with EF 55%, stage 1 diastolic dysfunction 3-1 repeat echo lasix 40mg IV daily strict ins and outs daily weights CHF consult 3-2 echo with EF 25-30%, mild to moderate mitral regurgitation and tricuspid regurgitation weight 71.7kg -- improving nicely with lasix cardiology considering ischemic evaluation continue metoprolol 150 bid stop lisinopril in order to transition to entresto -- will need 36hours off lisinopril so start entresto on 3-5 consider adding aldactone if no improvement in EF after 3 months, consider ICD 3-3 lasix 40mg daily for home regimen cardiology not doing cardiac catheterization ok to discharge home (2) Elevated troponin: likely related to supply demand mismatch (3) PAD (peripheral artery disease): continue aspirin and plavix 3-[address] Ramos will do LLE angiogram with intervention prior to left foot surgery 3-[address] Ramos as outpatient (4) Ulcer of toe of left foot: 3-2 MRI left foot with likely osteo of 1st and 3rd digits consult orthopedic surgery Dr. Brumfield 3-[address] Brumfield as outpatient (5) 3-vessel coronary artery disease: continue aspirin and plavix 3-2 cardio considering cardiac cath 3-3 no cath needed, per cardio (6) Hyponatremia: chronic since 2018 2-28 sodium 130 3-1 sodium 134, improving with diuresis 3-2 sodium 133, stable (7) Diabetes mellitus, type 2: holding oral meds continue low ssi 3-2 well controlled (8) Hyperlipidemia: cont statin (9) Hypertension: cont lisinopril, metoprolol 3-2 well controlled (10) Non-pressure chronic ulcer of other part of left foot limited to breakdown of skin: Total Time Total Time Spent Total Time Spent (In Minutes): 35 Total Time Includes: Examination of the Patient, Discharge Planning, Medication Reconciliation and Communication With Other Providers Discharge Plan Discharge Items Patient Disposition: Home - Self-Care Reason For Visit: LEG SWELLING Discharge Diagnosis: acute systolic chf Activity: Resume your previous activity Non-emergency contact: Primary Care Provider Call non-emergency contact if: you have any medication questions Follow-up/Referrals: Christiano Lobato MD [Primary Care Provider] - Thalia Mackey CRNP [Nurse Practitioner] - (please see within one week of discharge for left 1st and 3rd toe wounds and leg bullae) Donnell Brumfield DO [Surgeon] - (see within one week for your left 1st and 3rd toe osteomyelitis) Lauren Gtz PA-C [Physician Non Morse Intercept Technician] - 05/16/20 2:00 pm (Congestive Heart Failure Program Appointment Information Early follow up is essential to managing your heart failure. An appointment has been scheduled for you with the [facility] Heart Failure Program within 7 days of discharge. Anticipate this visit to be 30-60 minutes long. Please expect a language path phone call from one of our nurses approximately 48 hours from discharge. They will also be placing an order for lab work to be completed 1-2 days prior to your heart failure follow up appointment. Please be sure to have this done so we can go over the results when you come in. Office Location The cardiology office building is located in front of the hospital at [address] [facility]. Bring the following with you to your follow-up doctor appointments: Please bring your daily weight log any discharge paperwork all of your medication bottles with you to this visit. ) Gamaliel Ramos MD [Physician] - (See within 2 weeks for discussion of revascularization of left leg) Diet: Heart Healthy Addtl Attending Provider Instructions: For your congestive heart failure Start taking lasix 40mg oral daily Start taking entresto on FridayMay 12 Stop taking lisinopril today See Lauren Gtz in heart failure clinic on May 16 at 2pm For your left toe wounds and left leg wound See wound care within one week to establish a routine for caring for your wounds See Dr. Brumfield within one week for further discussion of left 1st and 3rd toe surgery You can take gabapentin 100mg twice daily for pain in your feet For your vascular disease Follow up with Dr. Ramos to discuss revascularization options for your left leg Addtl Train Clerk Provider Instructions: Call your Primary Care doctor if any of the following symptoms or problems start or get worse: * Shortness of breath or difficulty breathing * Wake up at night short of breath * Chest pain * Cough * Swelling of your hands, feet, or legs * More fatigued or tired with your normal activity * Palpitations - sudden fast heart beats WEIGHT * Weigh yourself every morning after using the bathroom. * Use the same scale. * Wear the same amount of clothing. * Write your weight down on a chart. * Call your Primary Care doctor if you gain more than 2-3 pounds in 1-2 days. MEDICATIONS * Use this discharge instruction sheet for medication instructions. * Take your medications at the time your doctor ordered. * Do not skip a dose of your medicines. * If you miss a dose of medicine, take it as soon as possible, but DO NOT DOUBLE A DOSE. * Read your medicine information when you get home. * Know all of the side effects of your medicine. If in doubt, ask your pharmacist * Call your Primary Care doctor's office if you have any side effects. * Be sure all of your doctors know what medicine and herbs you take (including cold, flu, and herbal medicine). Take the following with you to your follow-up doctor appointments: * Weight Chart * Medication List * List of questions Do not drink excessive alcohol, beer or wine. Pending Studies at Discharge: No Stand-Alone Forms: My giddy, Smoking Cessation Medications and DC Order Prescriptions: New Entresto 24-26 mg Tablet 1 tab PO BID 30 Days Qty: 60 RF: 3 furosemide 40 mg Tablet 40 mg PO QAM 30 Days Qty: 30 RF: 2 gabapentin 100 mg Capsule 100 mg PO BID 30 Days Qty: 60 RF: 2 Continued metformin 500 mg tablet extended release 24 hr 500 mg PO BID Qty: 180 RF: 3 metoprolol succinate 100 mg tablet extended release 24 hr 150 mg PO BID Qty: 270 RF: 3 glimepiride 1 mg tablet 1 mg PO QAM Qty: 90 RF: 3 simvastatin [Zocor] 40 mg tablet 40 mg PO DAILY Qty: 90 RF: 3 vit C-vit K-ecomtj-kgcw-lutein 226 mg-200 unit -5 mg-0.8 mg capsule 1 cap PO DAILY RF: 0 B Complex Plus Vitamin C 53-22-03-5-300 mg capsule 1 cap PO DAILY RF: 0 aspirin 81 mg Tablet,Delayed Release (Dr/Ec) 81 mg PO DAILY RF: 0 diphenhydramine-acetaminophen [Tylenol PM Extra Strength] 25-500 mg Tablet 1 tab PO HS RF: 0 clopidogrel [Plavix] 75 mg tablet 75 mg PO DAILY RF: 0 multivitamin Tablet 1 tab PO QAM RF: 0 nitroglycerin 0.4 mg Tablet, Sublingual 1 tab Sublingual UD PRN (Reason: Chest Pain) RF: 0 acetaminophen [Tylenol Extra Strength] 500 mg Tablet 1,000 mg PO Q6H PRN (Reason: Pain) RF: 0 Discontinued lisinopril 10 mg tablet 20 mg PO DAILY Qty: 180 RF: 3 Discharge Orders: Discharge Order (Routine); Ordered 05/10/20 Ordered By: Nany Lopes Admission Data Admit Date/Time: 05/07/20 21:59 Attending Provider: Nany Lopes Admit Provider: Sarita Fortune Primary Care Provider: Christiano Lobato Other Providers: Benigno Quan ; Lauren Gtz ; Gamaliel Ramos ; Donnell Brumfield Coding Level of Care Code D/C Day Management >30 mins Diagnoses Acute systolic (congestive) heart failure I50.21 Elevated troponin R77.8 PAD (peripheral artery disease) I73.9 Ulcer of toe of left foot L97.521 Non-pressure ulcer stage: limited to breakdown of skin 3-vessel coronary artery disease I25.10 Hyponatremia E87.1 Diabetes mellitus, type 2 E11.59 Diabetes mellitus complication detail: with other circulatory complications Diabetes mellitus complication status: with circulatory complication Diabetes mellitus exterminator termite insulin use: without exterminator termite use Hyperlipidemia E78.5 Hyperlipidemia type: unspecified Hypertension I10 Hypertension type: essential hypertension Non-pressure chronic ulcer of other part of left foot limited to breakdown of skin L97.521
[2020-05-11] MEDS ORDERED: FUROSEMIDE 40 MG TAB PO SCH (09:00)
[2020-05-12] MEDS ORDERED: SACUBITRIL-VALSARTAN 24-26 MG TAB PO SCH (09:00)
== END 2020-05-10 15:30 | disposition home or self-care (01) ==
LOC: ED 17:18 → INTOOBSV 21:59 → SUATTDRO 21:59 → 2S 21:59

== ENCOUNTER 2020-05-25 15:55 | Inpatient (IN) ==
[2020-05-25] MEDS ORDERED: METOCLOPRAMIDE HCL INJ 5 MG/ML 2 ML VIAL IV PRN (17:25)
[2020-05-25] MEDS ORDERED: ZOLPIDEM TARTRATE 5 MG TAB PO PRN (17:25)
[2020-05-25] MEDS ORDERED: ONDANSETRON INJ 2 MG/ML 2 ML VIAL IV PRN (17:25)
[2020-05-25] MEDS ORDERED: VANCOMYCIN CONSULT ACTIVE PRN (17:25)
[2020-05-25] MEDS ORDERED: MAGNESIUM HYDROXIDE SUSP 30 ML UDC PO PRN (17:25)
[2020-05-25] MEDS ORDERED: diphenhydrAMINE Capsule 25 MG CAP PO PRN (17:25)
[2020-05-25] MEDS ORDERED: ALUMINUM/MAGNESIUM SUSP 30 ML UDC PO PRN (17:25)
[2020-05-25] MEDS ORDERED: VANCOMYCIN HCL 1,000 MG in SODIUM CHLORIDE 0.9% 250 ML IV SCH (17:30)
[2020-05-25] MEDS ORDERED: PATIENT'S HEIGHT AND/OR WEIGHT NEEDED SCH (17:45)
[2020-05-25] MEDS ORDERED: NITROGLYCERIN SL 0.4 MG/TAB TAB SL PRN (19:02)
[2020-05-25] MEDS ORDERED: PHARMACY GLYCEMIC MGMT CONSULT PRN (19:11)
[2020-05-25] MEDS ORDERED: VANCOMYCIN HCL 1,750 MG in SODIUM CHLORIDE 0.9% 500 ML IV ONE (19:15)
--- NOTE | 2020-05-25 19:17 | Hospitalist Consultation ---
Date of Consultation May 25, 2020 Assessment & Plan (1) Cellulitis of left lower extremity: 85-year-old male with a past medical history significant for severe PAD, CAD status post PCI in 2005, HFrEF, ischemic cardiomyopathy, hypertension, hyperlipidemia, DM 2, previous osteomyelitis of the left foot admitted for left lower extremity wounds by orthopedic service, found to have left lower extremity cellulitis. Left lower extremity cellulitis /left lower extremity wounds: -Noted on exam to have cellulitis up to the area of the left tibial tuberosity, with multiple shallow ulcerations of the left lower extremity, as well as purulent drainage from great left toe and necrotic dusky appearing left third toe. -CBC with leukocytosis to 14.54 with left shift, increased from 6.93 on 05/10. -Blood cultures collected. -Patient was already started on vancomycin on admission, will add Zosyn for broad-spectrum coverage. -Will confer with orthopedic service regarding plan for possible surgery tomorrow, however due to patient's significant cardiac history patient will need to have cardiac clearance prior to surgery. Cardiology consult placed. Have also asked Dr. Escalera to evaluate patient given PAD. HFrEF / ischemic cardiomyopathy / CAD: -Recently diagnosed on admission less than 1 month ago to have reduced EF to 25% with global hypokinesis. -Catheterization was considered, however patient deferred and decision was made to medically manage. -Continue home Lasix, Entresto, beta-maryam, aspirin, Plavix, statin. -Cardiology consult while admitted as above for clearance given possible surgery. Hyponatremia: -Chronic; most recent Na of 128 on 05/22. -Na today of 129, continue to monitor. -Will not start fluids in this patient given significant systolic dysfunction. DM2 with peripheral neuropathy: -Metformin and glimepiride home medications held. -Insulin sliding scale ordered. -Continue gabapentin for nerve pain. -Hgb A1c ordered with morning labs. Hypertension: -Continue home metoprolol, Lasix, Entresto. Hyperlipidemia: -Continue home simvastatin. Code status: Full code per admitting team FEN: Heart healthy, low-sodium, DM2 diet; n.p.o. at midnight for possible procedure tomorrow DVT prophylaxis: SCDs for now, chemoprophylaxis deferred given possible procedure (2) Ulcer of toe of left foot: (3) HFrEF (heart failure with reduced ejection fraction): (4) Ischemic cardiomyopathy: (5) PAD (peripheral artery disease): (6) Hypertension: (7) Hyperlipidemia: (8) Diabetes mellitus, type 2: Supervising Physician Co-Signing Physician Notes I personally saw and examined the patient. I verified all alicea points and agree with Resident Physician Dr Bhavna Jordan with the following exceptions and/or additions: Fernando Goodman is an 85 year old male who presents as a direct admission to the o rthopedic service although no H&P on admission and unclear reasons other than left foot ulcers on admission order. Medicine consulted for left lower extremity cellulitis and medical management. He has been started on vancomycin by the primary orthopedics team. Patient unclear if he is having a procedure tomorrow. No fevers or chills. He is unclear on how long his LLE cellulitis has been progressing. With regards to his recent CHF exacerbation he reports much improved with no weight gain O/E Non-septic appearing, A&Ox3, Chest - poor air entry b/l bases, dry gangrene on 3rd left toe, cellulitic bright erythema and swelling to knee A/P LLE cellulitis - agree with Zosyn/Vanc as above with close monitoring of renal function. Blood cultures x2 Chronic CHF with reduced ejection fraction, appears relatively euvolemic on admission therefore will continue his usual outpatient regimen. Patient will need cardiac clearance prior to any surgery. BNP pending PAD - well summarized as above. No emergent need for re-imaging. Consult his interventionalist cardiolgist. Hyponatremia - suspect more due to mild hypervolemia with CHF rather than hypovolemic. Continue on usual lasix dose for now and monitor with AM labs. Otherwise as above. History of Present Illness Reason for Consultation: cellulitis, medical management Requesting Physician: Dr. Brumfield Attending Physician: Donnell Brumfield, DO History of Present Illness 85-year-old male with a past medical history significant for severe PAD, CAD status post PCI in 2005, HFrEF, ischemic cardiomyopathy, hypertension, hyperlipi demia, DM2 admitted for left foot ulcers by Orthopedic Surgery service. Hospitalist service consulted for medical management and for evaluation of LLE cellulitis. Patient reports that he has had left lower extremity wounds for many months, for which he has weekly wound care at home, and follows with both a breast buffer and Dr. Brumfield for this. Reports that today he was told by Dr. Brumfield that they "needed to do something about that foot". Patient admits that he is not sure if he is having a procedure tomorrow, nor what kind he would have. Does not endorse any fevers or chills, no shortness of breath, no chest pain, palpitations, nausea or vomiting, diarrhea or constipation, urinary symptoms. Does endorse pain and redness that has worsened on that left lower extremity, as well as some pus coming out of the left great toe. He does not endorse any change in his peripheral edema, and takes Lasix 40 mg p.o. daily. He follows with Lauren Gtz with the heart failure clinic. Of note, patient was evaluated by Dr. Escalera in March 2018 for peripheral arterial disease, at which time attempt was made at revascularization of SFA which was unsuccessful due to inability to cross the heavily calcified occlusions. Was discharged 05/10/2020, noted on that admission to have new onset systolic heart failure with echocardiogram showing EF of 25% with global hypokinesis and new inferior wall motion abnormality (as compared to normal EF 07/2018). During that admission cardiac catheterization was considered, however was deferred by patient and medical therapy was optimized. At that time Dr. Escalera recommended that due to multivessel CAD and ischemic cardiomyopathy it would be appropriate to avoid open vascular surgery unless ulcerations caused high risk for limb loss. Allergies Allergy/AdvReac Type Severity Reaction Status Date / Time Aminoglycosides Allergy Mild DERMATITIS Verified 05/16/20 14:05 bacitracin Allergy Mild DERMATITIS Verified 05/16/20 14:05 neomycin Allergy Mild DERMATITIS Verified 05/16/20 14:05 polymyxin B Allergy Mild DERMATITIS Verified 05/16/20 14:05 Home Medications Medication Instructions Recorded Confirmed Type multivitamin 1 tab PO QAM 12/02/17 05/25/20 History nitroglycerin 1 tab SUBLINGUAL UD PRN 12/02/17 05/25/20 History acetaminophen [Tylenol Extra 1,000 mg PO Q6H PRN 07/14/18 05/25/20 History Strength] vit C-vit M-quumux-brxq ox-lutein 1 cap PO DAILY cap 09/02/18 05/16/20 History 226 mg-200 unit-5 mg-0.8 mg capsule vitamin B comp and C no.3 15 mg-10 1 cap PO DAILY 09/02/18 05/25/20 History mg-50 mg-5 mg-300 mg capsule metformin 500 mg tablet,extended 500 mg PO BID #180 tab 08/20/19 05/25/20 Rx release 24 hr metoprolol succinate 100 mg 150 mg PO BID #270 tab 08/20/19 05/25/20 Rx tablet,extended release 24 hr glimepiride 1 mg tablet 1 mg PO QAM #90 tab 03/15/20 05/25/20 Rx simvastatin 40 mg tablet 40 mg PO DAILY #90 tab 03/20/20 05/25/20 Rx aspirin 81 mg PO DAILY 05/07/20 05/25/20 History clopidogrel [Plavix] 75 mg PO DAILY 05/07/20 05/16/20 History diphenhydramine-acetaminophen 1 tab PO HS 05/07/20 05/25/20 History [Tylenol PM Extra Strength] furosemide 40 mg PO QAM 30 Days #30 tab 05/10/20 05/25/20 Rx gabapentin 100 mg PO BID 30 Days #60 cap 05/10/20 05/16/20 Rx sacubitril-valsartan [Entresto] 1 tab PO BID 30 Days #60 tab 05/10/20 05/25/20 Rx Patient History Medical History 3-vessel coronary artery disease Acute hyponatremia 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 Cataract Closed head injury Compression fx, thoracic spine Diabetes mellitus, type 2 DENIES NEUROPATHY Foot pain Hearing decreased History of prostate cancer 15 YEARS AGO History of SCC (squamous cell carcinoma) of skin Hyperlipidemia Hypertension Hyponatremia Laceration of blood vessel of right index finger, initial encounter Non-pressure chronic ulcer of other part of left foot limited to breakdown of skin 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 Osteoporosis, unspecified PAD (peripheral artery disease) Right knee pain Surgical History History of cardiac cath 15 YEARS AGO, STENT X1, [facility] [place] History of herniorrhaphy History of radical prostatectomy History of tonsillectomy Hx of cataract surgery RIGHT Family History Father Hyperlipidemia Denies family history of Colon cancer Ovarian cancer Prostate cancer Myocardial infarction Breast cancer Social History Smoking Status: Never smoker Second Hand Exposure: No; Hx Alcohol Use: No Hx Substance Use: No Preferred Language: Bulgarian Communication Ability: Effective Solvent Plant Treater Required: No Beliefs That Will Affect Care: None marital status: Current Living Situation: Spouse Other Information That Helps Us Care for You: No Feels Safe at Home: Yes Safety Concerns: Feels Safe At This Time Assistive Devices: Walker Review of Systems Review of Systems: All systems reviewed & are unremarkable except as noted in HPI & below Constitutional: no fever, no chills and no malaise Respiratory: no cough and no dyspnea Cardiovascular: no chest pain, no palpitations and no edema Gastrointestinal: no abdominal pain, no constipation and no diarrhea/loose stools Physical Exam Constitutional: WD/WN, vitals as above Eyes: PERRL, conjunctivae normal, anicteric sclerae ENMT: external ear and nose normal, oropharynx normal Neck: normal visual inspection Respiratory: normal respiratory effort, lungs clear to auscultation Auscultation: no crackles and no wheezes Cardiovascular: Rate/Rhythm: regular rate and regular rhythm Heart Sounds: no murmur Extremities: + edema (1-2+ bilateral LE) Gastrointestinal (Abdomen): normal bowel sounds, soft, nontender, no hepatosp lenomegaly Skin: 6cm shallow ulceration on posterior left calf. Distal left great toe with 2-3mm wound with purulent drainage, no surrounding erythema. Left third toe dusky in color to 3rd MTP joint, with eschar at distal phalanx. Redness, erythema, tenderness noted on LLE to the level of the tibial tuberosity. Weeping noted from skin of LLE. RLE with chronic venous stasis changes and weeping noted from skin. Neurologic: AAOx3, normal speech. Moves all extremities. Psychiatric: A+Ox3, euthymic affect Results & Data Results & Data ([facility]) Vital Signs (Past 12 Hours) Vital Signs Temp Pulse Resp BP Pulse Ox 05/25/20 16:32 36.9 C 89 16 105/68 99 Resident Activity Tracking Resident Involvement: Resident Care Provided Care Provided: Adult Hospital Medicine (1) Diabetes mellitus, type 2 Diabetes mellitus complication detail: with other circulatory complications Diabetes mellitus complication status: with circulatory complication Diabetes mellitus long-term insulin use: without voicer use Qualified Code(s): E11.59 - Type 2 diabetes mellitus with other circulatory complications (2) Hyperlipidemia Hyperlipidemia type: unspecified Qualified Code(s): E78.5 - Hyperlipidemia, unspecified (3) Ulcer of toe of left foot Non-pressure ulcer stage: limited to breakdown of skin Qualified Code(s): L97.521 - Non-pressure chronic ulcer of other part of left foot limited to breakdown of skin (4) Hypertension Hypertension type: essential hypertension Qualified Code(s): I10 - Essential (primary) hypertension
[2020-05-25] MEDS ORDERED: GLUCOSE 10 TABS/TUBE PO PRN ×2 (19:45→19:48)
[2020-05-25] MEDS ORDERED: GLUCAGON FOR INJ 1 MG VIAL IM PRN (19:45)
[2020-05-25] MEDS ORDERED: CARBOHYDRATES FOR HYPOGLYCEMIA PO PRN ×2 (19:45→19:48)
[2020-05-25] MEDS ORDERED: DEXTROSE 50% 50 ML SYRINGE IV PRN ×2 (19:45→19:48)
[2020-05-25] MEDS ORDERED: GLUCOSE 40% GEL 15 GM TUBE PO PRN ×2 (19:45→19:48)
[2020-05-25] MEDS ORDERED: GLUCAGON FOR INJ 1 MG VIAL SQ PRN (19:48)
[2020-05-25 19:54] LABS: Basophils # (auto) 0.01 K/uL (0-0.2); Basophils % (auto) 0.1 %; Eosinophils # (auto) 0.04 K/uL (0-0.5); Eosinophils % (auto) 0.3 %; Hematocrit (blood only) 35.8 % (42-52); Immature Granulocytes # (auto) 0.03 K/uL (0.00-0.02); Immature Granulocytes % (auto) 0.2 %; Lymphocytes # (auto) 0.86 K/uL (1.2-3.4); Lymphocytes % (auto) 5.9 %; Mean Corpuscular Hemoglobin 30.8 pg (25-34); Mean Corpuscular Volume 91.8 fL (80-100); Monocytes % (auto) 3.4 %; Neutrophils % (auto) 90.1 %; Platelet Count 392 K/uL (130-400); RDW Coefficient of Variation 13.8 % (11.5-14.5); RDW Standard Deviation 45.8 fL (36.4-46.3); White Blood Count 14.54 K/uL (4.8-10.8)
[2020-05-25] MEDS ORDERED: INSULIN ASPART 100 UNITS/ML 3 ML PEN SC SCH ×2 (20:00→21:00)
[2020-05-25 20:04] LABS: Mean Corpuscular Hgb Conc 33.5 g/dL (32-36)
[2020-05-25 20:11] LABS: INR 1.4 (0.9-1.1); Partial Thromboplastin Time 27.6 Seconds (21.0-31.0); Prothrombin Time 13.6 Seconds (9.0-12.0)
[2020-05-25] MEDS: SODIUM CHLORIDE 0.9% 1000ML 1,000 ML IV SCH (20:17)
[2020-05-25] MEDS: SACUBITRIL-VALSARTAN 24-26 MG TAB PO SCH (20:20)
--- NOTE | 2020-05-25 20:20 | XRay Report ---
XR chest 1V portable HISTORY: pre-op COMPARISON: Chest 05/07/2020. FINDINGS: No pneumothorax. There are small bilateral pleural effusions. The heart remains mildly enla rged. There is diffuse interstitial/vascular thickening consistent with mild pulmonary edema. This shafer s slightly progressed. There are bibasilar hazy airspace opacities. This could represent atelectasis or developing pneumonia. IMPRESSION: 1. Interval progression of the mild interstitial pulmonary edema. Small bilateral pleural effusions p ersist. 2. Hazy bibasilar densities. This favors atelectasis. A pneumonia could also have a similar appearanc e. ACT 112: Negative or not required by law. Electronically signed by: Jose Carballo M.D. 05/25/2020 8:18 PM
[2020-05-25 20:21] LABS: Albumin Level 2.5 gm/dl (3.4-5.0); BUN Creatinine Ratio 19.5 (10-20); Calcium 8.7 mg/dl (8.5-10.1); Est GFR (African American) 68.8; Est GFR (Non-African American) 59.4; Potassium 4.7 mmol/L (3.5-5.1)
[2020-05-25] MEDS: DOCUSATE SODIUM 100 MG CAP PO SCH (20:21)
[2020-05-25 20:25] LABS: Albumin Globulin Ratio 0.7 (0.9-2); Bilirubin,Total 0.5 mg/dl (0.2-1); Globulin 3.8 gm/dl (2.5-4.0); Total Protein 6.3 gm/dl (6.4-8.2)
[2020-05-25] MEDS: METOPROLOL SUCC 50MG EXT REL TAB PO SCH (20:27)
[2020-05-25] MEDS: GABAPENTIN 100 MG CAP PO SCH (21:25)
[2020-05-25] MEDS ORDERED: CALCIUM CHLORIDE 10% 10 ML SYR IV ONE (22:53)
[2020-05-25] MEDS ORDERED: SODIUM CHLORIDE 0.9% 10ML FLUSH IV ONE (22:53)
[2020-05-25] MEDS ORDERED: SODIUM BICARB 8.4% INJ 50 MEQ/50 ML SYR IV ONE (22:53)
[2020-05-26] MEDS ORDERED: Nursing to Pharmacy Communication SCH ×2 (00:45→11:00)
[2020-05-26] MEDS ORDERED: INSULIN ASPART 100 UNITS/ML 3 ML PEN SC SCH ×2 (06:00)
[2020-05-26 07:25] LABS: Basophils # (auto) 0.01 K/uL (0-0.2); Basophils % (auto) 0.1 %; Eosinophils # (auto) 0.11 K/uL (0-0.5); Eosinophils % (auto) 1.2 %; Hematocrit (blood only) 36.6 % (42-52); Hemoglobin 12.1 g/dL (14.0-18.0); Immature Granulocytes # (auto) 0.02 K/uL (0.00-0.02); Immature Granulocytes % (auto) 0.2 %; Lymphocytes # (auto) 0.62 K/uL (1.2-3.4); Lymphocytes % (auto) 6.8 %; Mean Corpuscular Hemoglobin 30.6 pg (25-34); Mean Corpuscular Hgb Conc 33.1 g/dL (32-36); Mean Corpuscular Volume 92.7 fL (80-100); Mean Platelet Volume 10.2 fL (7.4-10.4); Monocytes # (auto) 0.83 K/uL (0.11-0.59); Neutrophils # (auto) 7.59 K/uL (1.4-6.5); Neutrophils % (auto) 82.7 %; Platelet Count 420 K/uL (130-400); RDW Coefficient of Variation 13.9 % (11.5-14.5); RDW Standard Deviation 47.5 fL (36.4-46.3); Red Blood Count 3.95 M/uL (4.7-6.1); White Blood Count 9.18 K/uL (4.8-10.8)
[2020-05-26] MEDS: VANCOMYCIN HCL 1,000 MG in SODIUM CHLORIDE 0.9% 250 ML IV SCH ×2 (07:55→23:36)
[2020-05-26] MEDS ORDERED: VANCOMYCIN HCL 1,000 MG in SODIUM CHLORIDE 0.9% 250 ML IV SCH (08:00)
[2020-05-26] MEDS ORDERED: VANCOMYCIN HCL 750 MG in SODIUM CHLORIDE 0.9% 250 ML IV SCH (08:00)
[2020-05-26 08:02] LABS: BUN Creatinine Ratio 21.6 (10-20); Calcium 8.9 mg/dl (8.5-10.1); Creatinine Clr Calc Pharmacy 51.2 ml/min; Est GFR (African American) 70.3; Est GFR (Non-African American) 60.7; Potassium 4.4 mmol/L (3.5-5.1)
[2020-05-26 08:33] LABS: Estimated Average Glucose 166 mg/dl; Hemoglobin A1C 7.4 % (4.5-5.6)
[2020-05-26] MEDS ORDERED: FUROSEMIDE 40 MG TAB PO SCH (09:00)
--- NOTE | 2020-05-26 09:25 | Cardiology Consultation ---
Date of Consultation May 26, 2020 Assessment & Plan (1) Coronary artery disease: --multivessel post PCI to LAD 2005 2. Presumed ischemic cardiomyopathy 3. Systolic CHF 4. Peripheral arterial disease--known b/l SFA occlusions and tibial disease 5. LLE cellulitis, necrotic 3rd digit Patient admitted yesterday with left lower extremity cellulitis and necrotic changes of left 3rd digit. He is on IV antibiotics and ortho planning on likely digit amputation at some point in the future. Recent admission with acute CHF, new LV dysfunction and wall motion abnormalities likely secondary to progression of known coronary disease. Patient declined cardiac catheterization. He denies anginal type symptoms so at this point reasonable to defer cath. On exam has mild congestion and plan to give dose of IV Lasix. Continue guideline based medical therapy. Rosamaria Gtz PA-C from heart failure program will provide further recommendations. Continue DAPT. From a cardiac standpoint given his coronary disease and cardiomyopathy, patient is at elevated risk to undergo any surgical procedure but do not feel additional cardiac testing or intervention is necessary prior and OK to proceed with orthopedic surgery if necessary. Would avoid general anesthesia if possible. From vascular standpoint multiple attempts have been made in the past at endovascular revascularization. Again given cardiac status would avoid open vascular surgery unless ulcerations progress where at high risk for limb loss. Thank you for allowing us to participate in the care of this patient. History of Present Illness Attending Physician: Donnell Brumfield, History of Present Illness Mr Goodman is a very pleasant 85 year old male with history of peripheral arterial disease, coronary artery disease, ischemic cardiomyopathy, chronic systolic heart failure, type 2 DM, dyslipidemia. Patient was recently admitted from 05/07/20-05/10/20 with acute heart failure and lower extremity ulcers. Echo remarkable for new LV dysfunction (EF 25-30%) with regional wall motion abnormalities. Troponin was mildly elevated as well. Given his prior history, it was felt this likely represented a progression of his coronary disease. Repeat cardiac cath was discussed but patient was asymptomatic and wished to defer any intervention. At that time lower extremity ulcers were superficial and benefit of potential revascularization for PAD seemed limited. He has known b/l SFA occlusions and severe tibial disease. Has failed multiple attempts at endovascular revascularization in the past possible LLE bypass was discussed. Most recently saw Dr. Ramos who recommended conservative therapy for the time being given his elevated surgical risk. He was readmitted yesterday in the setting of LLE cellulitis and ischemic appearing digits. He says about one week ago he developed erythema of left toes. He did not have any associated pain. Saw Dr. Brumfield yesterday with evidence of significant cellulitis and was referred to [facility] for IV antibiotics. He is currently on Vancomycin. MRI from last hospitalization with developing osteomyelitis of left 3rd digit. Patient denies any pain of his foot. No fever, chills or sweats. Has remained fairly active performing ADLs and doing some walking. Denies any chest pain or dyspnea. No orthopnea, PND. Some increase in lower extremity edema. Allergies Allergy/AdvReac Type Severity Reaction Status Date / Time Aminoglycosides Allergy Mild DERMATITIS Verified 05/16/20 14:05 bacitracin Allergy Mild DERMATITIS Verified 05/16/20 14:05 neomycin Allergy Mild DERMATITIS Verified 05/16/20 14:05 polymyxin B Allergy Mild DERMATITIS Verified 05/16/20 14:05 Home Medications Medication Instructions Recorded Confirmed Type multivitamin 1 tab PO QAM 12/02/17 05/25/20 History nitroglycerin 1 tab SUBLINGUAL UD PRN 12/02/17 05/25/20 History acetaminophen [Tylenol Extra 1,000 mg PO Q6H PRN 07/14/18 05/25/20 History Strength] vit C-vit B-[id number]-vhxc ox-lutein 1 cap PO DAILY cap 09/02/18 05/16/20 History 226 mg-200 unit-5 mg-0.8 mg capsule vitamin B comp and C no.3 15 mg-10 1 cap PO DAILY 09/02/18 05/25/20 History mg-50 mg-5 mg-300 mg capsule metformin 500 mg tablet,extended 500 mg PO BID #180 tab 08/20/19 05/25/20 Rx release 24 hr metoprolol succinate 100 mg 150 mg PO BID #270 tab 08/20/19 05/25/20 Rx tablet,extended release 24 hr glimepiride 1 mg tablet 1 mg PO QAM #90 tab 03/15/20 05/25/20 Rx simvastatin 40 mg tablet 40 mg PO DAILY #90 tab 03/20/20 05/25/20 Rx aspirin 81 mg PO DAILY 05/07/20 05/25/20 History clopidogrel [Plavix] 75 mg PO DAILY 05/07/20 05/16/20 History diphenhydramine-acetaminophen 1 tab PO HS 05/07/20 05/25/20 History [Tylenol PM Extra Strength] furosemide 40 mg PO QAM 30 Days #30 tab 05/10/20 05/25/20 Rx gabapentin 100 mg PO BID 30 Days #60 cap 05/10/20 05/16/20 Rx sacubitril-valsartan [Entresto] 1 tab PO BID 30 Days #60 tab 05/10/20 05/25/20 Rx Patient History Medical History 3-vessel coronary artery disease Acute hyponatremia 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 Cataract Closed head injury Compression fx, thoracic spine Diabetes mellitus, type 2 DENIES NEUROPATHY Foot pain Hearing decreased History of prostate cancer 15 YEARS AGO History of SCC (squamous cell carcinoma) of skin Hyperlipidemia Hypertension Hyponatremia Laceration of blood vessel of right index finger, initial encounter Non-pressure chronic ulcer of other part of left foot limited to breakdown of skin 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 Osteoporosis, unspecified PAD (peripheral artery disease) Right knee pain Surgical History History of cardiac cath 15 YEARS AGO, STENT X1, [facility] [place], [place] History of herniorrhaphy History of radical prostatectomy History of tonsillectomy Hx of cataract surgery RIGHT Family History Father Hyperlipidemia Denies family history of Colon cancer Ovarian cancer Prostate cancer Myocardial infarction Breast cancer Social History Smoking Status: Never smoker Second Hand Exposure: No; Hx Alcohol Use: No Hx Substance Use: No Preferred Language: Croatian Communication Ability: Effective 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 HEENT: Head is normal. PERRLA. EOMI. Sclerae anicteric. Mask on. Neck: Normal carotid upstrokes. JVP 1/2 way to neck Lungs: Decreased breath sounds and crackles at the bases bilaterally. Cardiac: Regular rate and rhythm. S1-S2 normal. No appreciable murmur, gallop or rub. Abdomen: Soft and nontender. Bowel sounds normal. No mass or organomegaly. No abdominal bruit. Extremities/vascular: --1+ LE edema bilaterally, L>R --Erythema, warmth of LLE nearly to the knee --Left 3rd digit appears ischemic, dusky in color and cool to touch. Distal digit with dry gangrenous changes --Left 1st digit with small scabbed lesion --B/L shins with shallow, scabbed ulcers --Radial 2+ bilaterally --Femoral 2+ bilaterally --Popliteal, DP/PT pulses nonpalpable bilaterally --Cap refill intact Neurologic: Nonfocal Psychiatric: Affect appropriate. Alert and oriented. Results & Data ([facility]) Vital Signs (Past 12 Hours) Vital Signs Temp Pulse Resp BP Pulse Ox 05/26/20 07:33 36.8 C 89 16 106/64 96 05/25/20 23:00 36.9 C 86 16 98/58 L 94 PG Care Time/CCT Total # of Minutes Spent Total Time Spent with Patient: Total time spent is greater than 50% in coordination of care (as documented) at patient's floor/unit and/or counseling patient: Coding Level of Care Code 11783 Initial Inpt Care Lvl 3 Diagnoses Coronary artery disease I25.10 Associated angina: without angina Coronary Disease-Associated Artery/Lesion type: [place] artery [place] vs. transplanted heart: [place] heart (1) Coronary artery disease Associated angina: without angina Coronary Disease-Associated Artery/Lesion type: [place] artery [place] vs. transplanted heart: [place] heart Qualified Code(s): I25.10 - Atherosclerotic heart disease of [place] coronary artery without angina pectoris
[2020-05-26] MEDS ORDERED: FUROSEMIDE 40 MG in SYRINGE 0 ML IV ONE (10:00)
[2020-05-26] MEDS: ASPIRIN 81 MG ECTAB PO SCH (10:00)
[2020-05-26] MEDS: SIMVASTATIN 40 MG TAB PO SCH (10:01)
[2020-05-26] MEDS: METOPROLOL SUCC 50MG EXT REL TAB PO SCH ×2 (10:01→21:02)
[2020-05-26] MEDS: DOCUSATE SODIUM 100 MG CAP PO SCH ×2 (10:01→21:02)
[2020-05-26] MEDS: SACUBITRIL-VALSARTAN 24-26 MG TAB PO SCH ×2 (10:01→21:02)
[2020-05-26] MEDS: PANTOprazole 40 MG TAB PO SCH (10:01)
[2020-05-26] MEDS: CLOPIDOGREL BISULFATE 75 MG TAB PO SCH (10:02)
[2020-05-26] MEDS: MULTIVITAMIN TAB PO SCH (10:02)
[2020-05-26] MEDS: GABAPENTIN 100 MG CAP PO SCH ×2 (10:02→21:02)
--- NOTE | 2020-05-26 10:36 | Orthopedic Consultation ---
Date of Consultation May 26, 2020 Assessment & Plan (1) Cellulitis of left lower extremity: I have spoken with Dr. Tovar about this patient this morning. Patient will be changed to the medicine service. IV antibiotics will be continued for cellulitis. I have spoken to the vascular service this morning they have attempted treatment of his PAD in the past and at this time there is no further plans for anything invasive. I have spoken to Dr. Brumfield about this patient this morning. No surgical intervention for the left third toe. We will continue to let it demarcate over time. He will likely need amputation at some time in the future but no plans during this stay. History of Present Illness Reason for Consultation: Left lower extremity cellulitis Attending Physician: Gavin Tovar History of Present Illness I want to see how she perks up today. Patient is a 85-year-old white male with history of PAD, CAD, with EF of 25 to 30%, hypertension, diabetes mellitus type 2, hyperlipidemia that was seen in Dr. Brumfield's office yesterday. He has history of small ulcers on his toes secondary to his PAD. It was noticed at the office visit that his left lower extremity was bright red with cellulitis and it was felt that he would need admitted for IV antibiotics. Patient does have a dry gangrene of his third left toe which they have been watching. The patient was thusly sent from Dr. Brumfield's office to the hospital to be admitted to the medical service for IV antibiotics. The patient states that he continues to walk daily and 1 day noticed that his toe was red and then began to become discolored. It has progressed since that time. He has no complaints at this time and states that the toe is nontender. Mild discomfort from his cellulitis in the left lower extremity. No other complaints at this time. Allergies Allergy/AdvReac Type Severity Reaction Status Date / Time Aminoglycosides Allergy Mild DERMATITIS Verified 05/16/20 14:05 bacitracin Allergy Mild DERMATITIS Verified 05/16/20 14:05 neomycin Allergy Mild DERMATITIS Verified 05/16/20 14:05 polymyxin B Allergy Mild DERMATITIS Verified 05/16/20 14:05 Home Medications Medication Instructions Recorded Confirmed Type multivitamin 1 tab PO QAM 12/02/17 05/25/20 History nitroglycerin 1 tab SUBLINGUAL UD PRN 12/02/17 05/25/20 History acetaminophen [Tylenol Extra 1,000 mg PO Q6H PRN 07/14/18 05/25/20 History Strength] vit C-vit B-lbfwsh-fzfg ox-lutein 1 cap PO DAILY cap 09/02/18 05/16/20 History 226 mg-200 unit-5 mg-0.8 mg capsule vitamin B comp and C no.3 15 mg-10 1 cap PO DAILY 09/02/18 05/25/20 History mg-50 mg-5 mg-300 mg capsule metformin 500 mg tablet,extended 500 mg PO BID #180 tab 08/20/19 05/25/20 Rx release 24 hr metoprolol succinate 100 mg 150 mg PO BID #270 tab 08/20/19 05/25/20 Rx tablet,extended release 24 hr glimepiride 1 mg tablet 1 mg PO QAM #90 tab 03/15/20 05/25/20 Rx simvastatin 40 mg tablet 40 mg PO DAILY #90 tab 03/20/20 05/25/20 Rx aspirin 81 mg PO DAILY 05/07/20 05/25/20 History clopidogrel [Plavix] 75 mg PO DAILY 05/07/20 05/16/20 History diphenhydramine-acetaminophen 1 tab PO HS 05/07/20 05/25/20 History [Tylenol PM Extra Strength] furosemide 40 mg PO QAM 30 Days #30 tab 05/10/20 05/25/20 Rx gabapentin 100 mg PO BID 30 Days #60 cap 05/10/20 05/16/20 Rx sacubitril-valsartan [Entresto] 1 tab PO BID 30 Days #60 tab 05/10/20 05/25/20 Rx Patient History Medical History 3-vessel coronary artery disease Acute hyponatremia 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 Cataract Closed head injury Compression fx, thoracic spine Diabetes mellitus, type 2 DENIES NEUROPATHY Foot pain Hearing decreased History of prostate cancer 15 YEARS AGO History of SCC (squamous cell carcinoma) of skin Hyperlipidemia Hypertension Hyponatremia Laceration of blood vessel of right index finger, initial encounter Non-pressure chronic ulcer of other part of left foot limited to breakdown of skin 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 Osteoporosis, unspecified PAD (peripheral artery disease) Right knee pain Surgical History History of cardiac cath 15 YEARS AGO, [place] [facility] [place] History of herniorrhaphy History of radical prostatectomy History of tonsillectomy Hx of cataract surgery RIGHT Family History Father Hyperlipidemia Denies family history of Colon cancer Ovarian cancer Prostate cancer Myocardial infarction Breast cancer Social History Smoking Status: Never smoker Second Hand Exposure: No; Hx Alcohol Use: No Hx Substance Use: No Preferred Language: Uruguayan Communication Ability: Effective 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 He has some mild tenderness on palpation of this area but he is already starting to have some skin wrinkling from edema decreasing. He still has some mild edema on the dorsum of the foot. Left third toe noted to have darkened discoloration with a small dry ulceration at the tip. No odor, no purulent drainage. He has a couple of small ulcers noted on the right toes as well with no demarcation or discoloration of these toes at this time. Results & Data ([facility]) Vital Signs (Past 12 Hours) Vital Signs Temp Pulse Resp BP Pulse Ox 05/26/20 07:33 36.8 C 89 16 106/64 96 05/25/20 23:00 36.9 C 86 16 98/58 L 94
[2020-05-26] MEDS: INSULIN ASPART 100 UNITS/ML 3 ML PEN SC SCH ×3 (13:27→21:07)
--- NOTE | 2020-05-26 14:22 | Pharmacy Report ---
Pharmacy Abx Initial Consult - Date of Service May 26, 2020 - Pharmacy Dosing Scope Date of Consult: 05/25/20 Consultation requested by: Niels MICHAEL Pharmacy is consulted to initiate Vancomycin IV dosing therapy, order appropriate labs and adjust drug dose/frequency. - Subjective The patient is a 85 year old M admitted on 05/25/20 15:55. - Objective Height: 5 ft 10 in Weight: 73.7 kg Vital Signs (Past 12hrs): Vital Signs Temp Pulse Resp BP Pulse Ox 05/26/20 07:33 36.8 C 89 16 106/64 96 Lab Results (24hrs): Laboratory Tests (24 Hours) 05/26/20 05/26/20 05/25/20 06:43 06:43 19:42 WBC 9.18 Neut # (Auto) 7.59 H Creatinine 1.11 1.13 Est Cr Clr Drug Dosing 51.2 50.0 05/25/20 19:42 WBC 14.54 H Neut # (Auto) 13.10 H Creatinine Est Cr Clr Drug Dosing Micro Results: 05/25/20 19:32 Aerobic Blood Culture - Pending Blood Anaerobic Blood Culture - Pending 05/25/20 19:42 Aerobic Blood Culture - Pending Blood Anaerobic Blood Culture - Pending - Assessment & Plan Assessment 85 year old M admitted with LLE cellulitis. Patient with history of diabetes and multiple wound infections in the previous months for which he has been been on different antibiotics. Most recently, he was prescribed oral Bactrim on 05/22/20. Vancomycin ordered on admission. Plan Vancomycin IV * Estimated PK Parameters: Vd 0.7 L/kg, Suleman = 0.046 hr-1, t1/2 15 hr * Loading dose: 1750 mg (24 mg/kg) IV x 1 dose given yesterday. * Maintenance dose: 1000 mg IV (14 mg/kg) every 16 hours started this AM. * Goal trough level for SST: 15 to 20 mcg/mL * Trough level ordered for 05/27/20 before dose at 1600. Pharmacy will continue to follow and will adjust dose/frequency as necessary. Thank you.
--- NOTE | 2020-05-26 15:45 | Billing Data ---
Date of Service May 25, 2020 Coding Level of Care Code 66313 Inpt Consult Level 5
--- NOTE | 2020-05-26 22:52 | Hospitalist Progress Note ---
Date of Service May 26, 2020 Assessment & Plan (1) Cellulitis of left lower extremity: Cellulitis of left lower extremity: 85-year-old male with a past medical history significant for severe PAD, CAD status post PCI in 2005, HFrEF, ischemic cardiomyopathy, hypertension, hyperlipidemia, DM 2, previous osteomyelitis of the left foot admitted for left lower extremity wounds by orthopedic service, found to have left lower extremity cellulitis. Left lower extremity cellulitis /left lower extremity wounds: -Noted on exam to have cellulitis up to the area of the left tibial tuberosity, with multiple shallow ulcerations of the left lower extremity, as well as purulent drainage from great left toe and necrotic dusky appearing left third toe. -CBC with leukocytosis to 14.54 with left shift, increased from 6.93 on 05/10. -Blood cultures collected. -Patient was already started on vancomycin on admission, will add Zosyn for broad-spectrum coverage. -Surgery is cancelled. will continue IV antibiotics and monitor. -Transferred to medical HFrEF / ischemic cardiomyopathy / CAD: -Recently diagnosed on admission less than 1 month ago to have reduced EF to 25% with global hypokinesis. -Catheterization was considered, however patient deferred and decision was made to medically manage. -Continue home Lasix, Entresto, beta-maryam, aspirin, Plavix, statin. -Cardiology consult while admitted as above for clearance given possible surgery. Hyponatremia: -Chronic; most recent Na of 128 on 05/22. -Na today of 129, continue to monitor. -Will not start fluids in this patient given significant systolic dysfunction. DM2 with peripheral neuropathy: -Metformin and glimepiride home medications held. -Insulin sliding scale ordered. -Continue gabapentin for nerve pain. -Hgb A1c ordered with morning labs. Hypertension: -Continue home metoprolol, Lasix, Entresto. Hyperlipidemia: -Continue home simvastatin (2) Ulcer of toe of left foot: (3) HFrEF (heart failure with reduced ejection fraction): (4) Ischemic cardiomyopathy: (5) PAD (peripheral artery disease): (6) Hypertension: (7) Hyperlipidemia: (8) Diabetes mellitus, type 2: Admission and Anticipated Discharge Date Admission Date: May 25, 2020 Subjective Patient has no new complaints at this time. Review of Systems Review of Systems: All systems reviewed & are unremarkable except as noted in HPI & below Physical Exam Physical Exam: Constitutional: WD/WN, vitals as above Eyes: PERRL, conjunctivae normal, anicteric sclerae ENMT: external ear and nose normal, oropharynx normal Neck: normal visual inspection Respiratory: normal respiratory effort, lungs clear to auscultation Auscultation: no crackles and no wheezes Cardiovascular: Rate/Rhythm: regular rate and regular rhythm Heart Sounds: no murmur Extremities: + edema (1-2+ bilateral LE) Gastrointestinal (Abdomen): normal bowel sounds, soft, nontender, no hepatosplenomegaly Skin: 6cm shallow ulceration on posterior left calf. decreased erythema, tenderness noted on LLE to the level of the tibial tuberosity. RLE with chronic venous stasis changes and weeping noted from skin. Neurologic: Moves all extremities. Psychiatric: A+Ox3, euthymic affect Results & Data Results & Data ([facility]) Vital Signs (Past 12 Hours) Vital Signs Temp Pulse Pulse Pulse Resp BP BP 05/26/20 22:22 36.7 C 86 16 108/69 05/26/20 21:00 90 106/67 05/26/20 14:37 36.7 C 86 16 97/57 L Pulse Ox 05/26/20 22:22 97 05/26/20 21:00 05/26/20 14:37 98 PG Care Time/CCT Total # of Minutes Spent Total Time Spent with Patient: Total time spent is greater than 50% in coordination of care (as documented) at patient's floor/unit and/or counseling patient: Coding Level of Care Code 04360 Subseq Hosp Care Lvl 2 Diagnoses Cellulitis of left lower extremity L03.116 Ulcer of toe of left foot L97.521 Non-pressure ulcer stage: limited to breakdown of skin HFrEF (heart failure with reduced ejection fraction) I50.20 Ischemic cardiomyopathy I25.5 PAD (peripheral artery disease) I73.9 Hypertension I10 Hypertension type: essential hypertension Hyperlipidemia E78.5 Hyperlipidemia type: unspecified Diabetes mellitus, type 2 E11.59 Diabetes mellitus complication detail: with other circulatory complications Diabetes mellitus complication status: with circulatory complication Diabetes mellitus correction insulin use: without correction use Time Spent (min) 25 (1) Diabetes mellitus, type 2 Diabetes mellitus complication detail: with other circulatory complications Diabetes mellitus complication status: with circulatory complication Diabetes mellitus correction insulin use: without correction use Qualified Code(s): E11.59 - Type 2 diabetes mellitus with other circulatory complications (2) Hyperlipidemia Hyperlipidemia type: unspecified Qualified Code(s): E78.5 - Hyperlipidemia, unspecified (3) Ulcer of toe of left foot Non-pressure ulcer stage: limited to breakdown of skin Qualified Code(s): L97.521 - Non-pressure chronic ulcer of other part of left foot limited to breakdown of skin (4) Hypertension Hypertension type: essential hypertension Qualified Code(s): I10 - Essential (primary) hypertension
[2020-05-26] MEDS: SODIUM CHLORIDE 0.9% 1000ML 1,000 ML IV SCH (23:31)
--- NOTE | 2020-05-27 06:29 | Electrocardiogram Report ---
Test Reason : Blood Pressure : / mmHG Vent. Rate : 091 BPM Atrial Rate : 091 BPM P-R Int : 196 ms QRS Dur : 080 ms QT Int : 364 ms P-R-T Axes : 045 -07 141 degrees QTc Int : 447 ms Sinus rhythm with occasional Premature ventricular complexes Possible Left atrial enlargement Cannot rule out Inferior infarct Abnormal ECG When compared with ECG of 09-MAY-2020 07:22, Questionable change in QRS axis Non-specific change in ST segment in Inferior leads ST less depressed in Anterior leads Nonspecific T wave abnormality has replaced inverted T waves in Inferior leads T wave inversion no longer evident in Anterior leads Confirmed by Wolf Fonseca ([id number]) on 05/27/2020 6:29:18 AM Referred By: Donnell Brumfield Confirmed By:Wolf Fonseca
--- NOTE | 2020-05-27 06:30 | Electrocardiogram Report ---
Test Reason : Blood Pressure : / mmHG Vent. Rate : 091 BPM Atrial Rate : 091 BPM P-R Int : 190 ms QRS Dur : 088 ms QT Int : 368 ms P-R-T Axes : 043 -12 159 degrees QTc Int : 452 ms Sinus rhythm with Fusion complexes Possible Left atrial enlargement Possible Inferior infarct , age undetermined Abnormal ECG When compared with ECG of 25-May-2020 21:08, No significant change Confirmed by Wolf Fonseca ([id number] on 05/27/2020 6:30:26 AM Referred By: Donnell Brumfield Confirmed By:Wolf Fonseca
[2020-05-27] MEDS: INSULIN ASPART 100 UNITS/ML 3 ML PEN SC SCH ×4 (09:00→21:33)
[2020-05-27] MEDS: GABAPENTIN 100 MG CAP PO SCH ×2 (09:01→21:29)
[2020-05-27] MEDS: MULTIVITAMIN TAB PO SCH (09:01)
[2020-05-27] MEDS: DOCUSATE SODIUM 100 MG CAP PO SCH ×2 (09:01→21:29)
[2020-05-27] MEDS: ASPIRIN 81 MG ECTAB PO SCH (09:01)
[2020-05-27] MEDS: SACUBITRIL-VALSARTAN 24-26 MG TAB PO SCH ×2 (09:01→21:29)
[2020-05-27] MEDS: PANTOprazole 40 MG TAB PO SCH (09:02)
[2020-05-27] MEDS: METOPROLOL SUCC 50MG EXT REL TAB PO SCH ×2 (09:02→21:29)
[2020-05-27] MEDS: CLOPIDOGREL BISULFATE 75 MG TAB PO SCH (09:02)
[2020-05-27] MEDS: SIMVASTATIN 40 MG TAB PO SCH (09:02)
--- NOTE | 2020-05-27 10:32 | Orthopedic Progress Note ---
Date of Service May 27, 2020 Assessment & Plan (1) Cellulitis of left lower extremity: He was sent over from Dr. Brumfield's office in clinic for admission for IV antibiotic treatment of his left lower leg cellulitis. Per the patient, this looks improved, with less erythema and swelling. There is a fairly large area of sloughed skin on the posterior medial aspect of the lower leg. Continue with daily dressing changes and IV antibiotics to treat the cellulitis. He does have obvious dry gangrene of his left third toe. Per Dr. Brumfield, he is going to let this demarcate over time and amputate this necrotic toe at a later date. Admission and Anticipated Discharge Date Admission Date: May 25, 2020 Subjective Patient resting comfortably. No complaints. Denies any pain in his foot or lower leg. Physical Exam Physical Exam: Dressings on the left lower leg and foot were taken down and changed. He has a fairly large area of sloughing skin on the posterior medial aspect of the lower leg. He reports that this looks improved since yesterday, with less erythema and swelling. He has obvious gross necrosis of the left third toe. It is black, cool, and insensate. Results & Data ([facility]) Vital Signs (Past 12 Hours) Vital Signs Temp Pulse Resp BP Pulse Ox 05/27/20 07:44 36.5 C 72 16 108/69 97
[2020-05-27] MEDS ORDERED: VANCOMYCIN TROUGH ONE (15:30)
[2020-05-27] MEDS: VANCOMYCIN HCL 1,000 MG in SODIUM CHLORIDE 0.9% 250 ML IV SCH (16:57)
[2020-05-27] MEDS: SODIUM CHLORIDE 0.9% 1000ML 1,000 ML IV SCH (17:33)
--- NOTE | 2020-05-27 17:35 | Pharmacy Report ---
Pharmacy Abx Dose Short Note - Date of Service May 27, 2020 - Assessment & Plan Assessment 85 year old M receiving vancomycin for treatment of cellulitis Day # 3 of antimicrobial therapy. Plan Vancomycin * Trough level came back therapeutic at ~15.7 mcg/ml, drawn before the third maintenance dose. * Will continue with vancomycin dosing of 1 gm iv q 16 hr for now, no change * Ortho following, per notes area looks improved today with less erythema/swelling. Likely will need to amputate necrotic toe at later date Pharmacy will continue to follow and will adjust dose/frequency as necessary. Thank you.
--- NOTE | 2020-05-27 22:17 | Hospitalist Progress Note ---
Date of Service May 27, 2020 Assessment & Plan (1) Cellulitis of left lower extremity: Cellulitis of left lower extremity: 85-year-old male with a past medical history significant for severe PAD, CAD status post PCI in 2005, HFrEF, ischemic cardiomyopathy, hypertension, hyperlipidemia, DM 2, previous osteomyelitis of the left foot admitted for left lower extremity wounds by orthopedic service, found to have left lower extremity cellulitis. Left lower extremity cellulitis /left lower extremity wounds: -Noted on exam to have cellulitis up to the area of the left tibial tuberosity, with multiple shallow ulcerations of the left lower extremity, as well as purulent drainage from great left toe and necrotic dusky appearing left third toe. -CBC with leukocytosis to 14.54 with left shift, increased from 6.93 on 05/10. -Blood cultures collected. -Patient was already started on vancomycin on admission, Improving with vancomycin will add Zosyn for broad-spectrum coverage. -Surgery is cancelled. will continue IV antibiotics and monitor. -Transferred to medical Erythema has improved. Still mildy red. HFrEF / ischemic cardiomyopathy / CAD: -Recently diagnosed on admission less than 1 month ago to have reduced EF to 25% with global hypokinesis. -Catheterization was considered, however patient deferred and decision was made to medically manage. -Continue home Lasix, Entresto, beta-maryam, aspirin, Plavix, statin. -Cardiology consult while admitted as above for clearance given possible surgery. Hyponatremia: -Chronic; most recent Na of 128 on 05/22. -Na today of 129, continue to monitor. -Will not start fluids in this patient given significant systolic dysfunction. DM2 with peripheral neuropathy: -Metformin and glimepiride home medications held. -Insulin sliding scale ordered. -Continue gabapentin for nerve pain. -Hgb A1c ordered with morning labs. Hypertension: -Continue home metoprolol, Lasix, Entresto. Hyperlipidemia: -Continue home simvastatin (2) Ulcer of toe of left foot: (3) HFrEF (heart failure with reduced ejection fraction): (4) Ischemic cardiomyopathy: (5) PAD (peripheral artery disease): (6) Hypertension: (7) Hyperlipidemia: (8) Diabetes mellitus, type 2: Admission and Anticipated Discharge Date Admission Date: May 25, 2020 Subjective 85 yo male reports no new symptoms at this time. Review of Systems Review of Systems: All systems reviewed & are unremarkable except as noted in HPI & below Physical Exam Physical Exam: Constitutional: WD/WN, vitals as above Eyes: PERRL, conjunctivae normal, anicteric sclerae ENMT: external ear and nose normal, oropharynx normal Neck: normal visual inspection Respiratory: normal respiratory effort, lungs clear to auscultation Auscultation: no crackles and no wheezes Cardiovascular: Rate/Rhythm: regular rate and regular rhythm Heart Sounds: no murmur Extremities: + edema (1-2+ bilateral LE) Gastrointestinal (Abdomen): normal bowel sounds, soft, nontender, no hepatos plenomegaly Skin: 6cm shallow ulceration on posterior left calf. decreased erythema, tenderness noted on LLE to the level of the tibial tuberosity. RLE with chronic venous stasis changes Psychiatric: A+Ox3, euthymic affect Results & Data Results & Data ([facility]) Vital Signs (Past 12 Hours) Vital Signs Temp Pulse Pulse Resp BP Pulse Ox 05/27/20 21:25 80 124/75 05/27/20 15:13 36.3 C L 72 16 111/71 97 PG Care Time/CCT Total # of Minutes Spent Total Time Spent with Patient: Total time spent is greater than 50% in coordination of care (as documented) at patient's floor/unit and/or counseling patient: Coding Level of Care Code 97190 Subseq Hosp Care Lvl 2 Diagnoses Cellulitis of left lower extremity L03.116 Ulcer of toe of left foot L97.521 Non-pressure ulcer stage: limited to breakdown of skin HFrEF (heart failure with reduced ejection fraction) I50.20 Ischemic cardiomyopathy I25.5 PAD (peripheral artery disease) I73.9 Hypertension I10 Hypertension type: essential hypertension Hyperlipidemia E78.5 Hyperlipidemia type: unspecified Diabetes mellitus, type 2 E11.59 Diabetes mellitus complication detail: with other circulatory complications Diabetes mellitus complication status: with circulatory complication Diabetes mellitus terminal press operator insulin use: without terminal press operator use Time Spent (min) 25 (1) Diabetes mellitus, type 2 Diabetes mellitus complication detail: with other circulatory complications Diabetes mellitus complication status: with circulatory complication Diabetes mellitus terminal press operator insulin use: without penitentiary use Qualified Code(s): E11.59 - Type 2 diabetes mellitus with other circulatory complications (2) Hyperlipidemia Hyperlipidemia type: unspecified Qualified Code(s): E78.5 - Hyperlipidemia, unspecified (3) Ulcer of toe of left foot Non-pressure ulcer stage: limited to breakdown of skin Qualified Code(s): L97.521 - Non-pressure chronic ulcer of other part of left foot limited to breakdown of skin (4) Hypertension Hypertension type: essential hypertension Qualified Code(s): I10 - Essential (primary) hypertension
[2020-05-28 06:56] LABS: Creatinine Clr Calc Pharmacy 59.8 ml/min; Est GFR (African American) 84.9; Est GFR (Non-African American) 73.2
[2020-05-28] MEDS: INSULIN ASPART 100 UNITS/ML 3 ML PEN SC SCH ×4 (08:50→20:59)
[2020-05-28] MEDS: MULTIVITAMIN TAB PO SCH (08:51)
[2020-05-28] MEDS: ASPIRIN 81 MG ECTAB PO SCH (08:51)
[2020-05-28] MEDS: DOCUSATE SODIUM 100 MG CAP PO SCH ×2 (08:51→20:00)
[2020-05-28] MEDS: GABAPENTIN 100 MG CAP PO SCH ×2 (08:51→20:00)
[2020-05-28] MEDS: CLOPIDOGREL BISULFATE 75 MG TAB PO SCH (08:51)
[2020-05-28] MEDS: METOPROLOL SUCC 50MG EXT REL TAB PO SCH ×2 (08:51→20:00)
[2020-05-28] MEDS: PANTOprazole 40 MG TAB PO SCH (08:51)
[2020-05-28] MEDS: SIMVASTATIN 40 MG TAB PO SCH (08:51)
[2020-05-28] MEDS: SACUBITRIL-VALSARTAN 24-26 MG TAB PO SCH ×2 (08:51→20:00)
[2020-05-28] MEDS: VANCOMYCIN HCL 1,000 MG in SODIUM CHLORIDE 0.9% 250 ML IV SCH ×2 (08:55→23:46)
[2020-05-28] MEDS: SODIUM CHLORIDE 0.9% 1000ML 1,000 ML IV SCH (10:42)
[2020-05-28] MEDS ORDERED: PIPERACILL/TAZOBAC CONSULT ACTIVE PRN (10:42)
[2020-05-28] MEDS ORDERED: PIPERACILLIN/TAZOBACTAM 3.375 GM in DEXTROSE 5% 100 ML IV ONE (10:45)
[2020-05-28 10:57] LABS: Basophils # (auto) 0.01 K/uL (0-0.2); Basophils % (auto) 0.1 %; Eosinophils # (auto) 0.11 K/uL (0-0.5); Eosinophils % (auto) 1.3 %; Hematocrit (blood only) 36.6 % (42-52); Hemoglobin 11.9 g/dL (14.0-18.0); Immature Granulocytes # (auto) 0.03 K/uL (0.00-0.02); Immature Granulocytes % (auto) 0.3 %; Lymphocytes # (auto) 0.46 K/uL (1.2-3.4); Lymphocytes % (auto) 5.2 %; Mean Corpuscular Hgb Conc 32.5 g/dL (32-36); Mean Corpuscular Volume 92.2 fL (80-100); Mean Platelet Volume 9.7 fL (7.4-10.4); Monocytes # (auto) 0.73 K/uL (0.11-0.59); Monocytes % (auto) 8.3 %; Neutrophils # (auto) 7.43 K/uL (1.4-6.5); Neutrophils % (auto) 84.8 %; Platelet Count 351 K/uL (130-400); RDW Coefficient of Variation 13.8 % (11.5-14.5); Red Blood Count 3.97 M/uL (4.7-6.1); White Blood Count 8.77 K/uL (4.8-10.8)
[2020-05-28 11:25] LABS: BUN Creatinine Ratio 23.9 (10-20); Calcium 8.3 mg/dl (8.5-10.1); Creatinine Clr Calc Pharmacy 60.4 ml/min; Est GFR (African American) 85.9; Est GFR (Non-African American) 74.2; Potassium 4.2 mmol/L (3.5-5.1)
[2020-05-28] MEDS: PIPERACILLIN/TAZOBACTAM 3.375 GM in DEXTROSE 5% 100 ML IV SCH (18:32)
--- NOTE | 2020-05-28 22:33 | Hospitalist Progress Note ---
Date of Service May 28, 2020 Assessment & Plan (1) Cellulitis of left lower extremity: Cellulitis of left lower extremity: 85-year-old male with a past medical history significant for severe PAD, CAD status post PCI in 2005, HFrEF, ischemic cardiomyopathy, hypertension, hyperlipidemia, DM 2, previous osteomyelitis of the left foot admitted for left lower extremity wounds by orthopedic service, found to have left lower extremity cellulitis. Left lower extremity cellulitis /left lower extremity wounds: -Noted on exam to have cellulitis up to the area of the left tibial tuberosity, with multiple shallow ulcerations of the left lower extremity, as well as purulent drainage from great left toe and necrotic dusky appearing left third toe. -CBC with leukocytosis to 14.54 with left shift, increased from 6.93 on 05/10. -Blood cultures collected. -Patient was already started on vancomycin on admission, Improving with vancomycin will add Zosyn for broad-spectrum coverage. -Surgery is cancelled. will continue IV antibiotics and monitor. -Transferred to medical Erythema has improved. Still mildy red. He has been improving with mainly vanco, started zosyn this AM. Did not receive zosyn on the 2 prior days. Given that erythema is improving, will reconsult ortho for possible amputation as there appears to be a neccotic toe. HFrEF / ischemic cardiomyopathy / CAD: -Recently diagnosed on admission less than 1 month ago to have reduced EF to 25% with global hypokinesis. -Catheterization was considered, however patient deferred and decision was made to medically manage. -Continue home Lasix, Entresto, beta-maryam, aspirin, Plavix, statin. -Cardiology consult while admitted as above for clearance given possible surgery. Hyponatremia: -Chronic; most recent Na of 128 on 05/22. -Na today of 130, continue to monitor. -Will not start fluids in this patient given significant systolic dysfunction. DM2 with peripheral neuropathy: -Metformin and glimepiride home medications held. -Insulin sliding scale ordered. -Continue gabapentin for nerve pain. -Hgb A1c ordered with morning labs. Hypertension: -Continue home metoprolol, Lasix, Entresto. Hyperlipidemia: -Continue home simvastatin (2) Ulcer of toe of left foot: (3) HFrEF (heart failure with reduced ejection fraction): (4) Ischemic cardiomyopathy: (5) PAD (peripheral artery disease): (6) Hypertension: (7) Hyperlipidemia: (8) Diabetes mellitus, type 2: Admission and Anticipated Discharge Date Admission Date: May 25, 2020 Subjective 85 yo male reports feeling better. He states his legs appear less red. Review of Systems Review of Systems: All systems reviewed & are unremarkable except as noted in HPI & below Physical Exam Physical Exam: Constitutional: WD/WN, vitals as above Eyes: PERRL, conjunctivae normal, anicteric sclerae ENMT: external ear and nose normal, oropharynx normal Neck: normal visual inspection Respiratory: normal respiratory effort, lungs clear to auscultation Auscultation: no crackles and no wheezes Cardiovascular: Rate/Rhythm: regular rate and regular rhythm Heart Sounds: no murmur Extremities: + edema (1-2+ bilateral LE) Gastrointestinal (Abdomen): normal bowel sounds, soft, nontender, no hepatosplenomegaly Skin: 6cm shallow ulceration on posterior left calf. decreased erythema, tenderness noted on LLE to the level of the tibial tuberosity. RLE with chronic venous stasis changes Psychiatric: A+Ox3, euthymic affect Results & Data Results & Data ([facility]) Vital Signs (Past 12 Hours) Vital Signs Temp Pulse Resp BP Pulse Ox 05/28/20 22:15 36.8 C 85 18 102/68 97 05/28/20 20:01 78 16 133/72 99 05/28/20 14:53 36.2 C L 76 16 102/65 100 PG Care Time/CCT Total # of Minutes Spent Total Time Spent with Patient: Total time spent is greater than 50% in coordination of care (as documented) at patient's floor/unit and/or counseling patient: Coding Level of Care Code 04930 Subseq Hosp Care Lvl 3 Diagnoses Cellulitis of left lower extremity L03.116 Ulcer of toe of left foot L97.521 Non-pressure ulcer stage: limited to breakdown of skin HFrEF (heart failure with reduced ejection fraction) I50.20 Ischemic cardiomyopathy I25.5 PAD (peripheral artery disease) I73.9 Hypertension I10 Hypertension type: essential hypertension Hyperlipidemia E78.5 Hyperlipidemia type: unspecified Diabetes mellitus, type 2 E11.59 Diabetes mellitus complication detail: with other circulatory complications Diabetes mellitus complication status: with circulatory complication Diabetes mellitus terminal press operator insulin use: without terminal press operator use (1) Diabetes mellitus, type 2 Diabetes mellitus complication detail: with other circulatory complications Diabetes mellitus complication status: with circulatory complication Diabetes mellitus group home insulin use: without group home use Qualified Code(s): E11.59 - Type 2 diabetes mellitus with other circulatory complications (2) Hyperlipidemia Hyperlipidemia type: unspecified Qualified Code(s): E78.5 - Hyperlipidemia, unspecified (3) Ulcer of toe of left foot Non-pressure ulcer stage: limited to breakdown of skin Qualified Code(s): L97.521 - Non-pressure chronic ulcer of other part of left foot limited to breakdown of skin (4) Hypertension Hypertension type: essential hypertension Qualified Code(s): I10 - Essential (primary) hypertension
[2020-05-29] MEDS: PIPERACILLIN/TAZOBACTAM 3.375 GM in DEXTROSE 5% 100 ML IV SCH ×3 (01:51→17:52)
[2020-05-29 06:40] LABS: Creatinine Clr Calc Pharmacy 63.1 ml/min; Est GFR (African American) 90.6; Est GFR (Non-African American) 78.2
[2020-05-29] MEDS: DOCUSATE SODIUM 100 MG CAP PO SCH ×2 (08:22→19:49)
[2020-05-29] MEDS: GABAPENTIN 100 MG CAP PO SCH ×2 (08:23→19:49)
[2020-05-29] MEDS: MULTIVITAMIN TAB PO SCH (08:23)
[2020-05-29] MEDS: SIMVASTATIN 40 MG TAB PO SCH (08:23)
[2020-05-29] MEDS: SACUBITRIL-VALSARTAN 24-26 MG TAB PO SCH ×2 (08:23→19:48)
[2020-05-29] MEDS: CLOPIDOGREL BISULFATE 75 MG TAB PO SCH (08:24)
[2020-05-29] MEDS: METOPROLOL SUCC 50MG EXT REL TAB PO SCH ×2 (08:24→19:49)
[2020-05-29] MEDS: PANTOprazole 40 MG TAB PO SCH (08:24)
[2020-05-29] MEDS: ASPIRIN 81 MG ECTAB PO SCH (08:24)
[2020-05-29] MEDS: INSULIN ASPART 100 UNITS/ML 3 ML PEN SC SCH ×4 (09:15→20:56)
[2020-05-29] MEDS: FUROSEMIDE 40 MG in SYRINGE 0 ML IV SCH (12:53)
[2020-05-29] MEDS ORDERED: VANCOMYCIN TROUGH ONE (15:30)
[2020-05-29] MEDS: VANCOMYCIN HCL 1,000 MG in SODIUM CHLORIDE 0.9% 250 ML IV SCH (16:33)
--- NOTE | 2020-05-29 18:55 | Orthopedic Progress Note ---
Date of Service May 29, 2020 Assessment & Plan (1) Cellulitis of left lower extremity: (2) Peripheral vascular disease: (3) Gangrene of toe of left foot: Worsening gangrene of left foot 3rd digit. Will likely require at least amp of 3rd digit. Continue IV abx at this time. We will discuss with Dr. Brumfield in regards to surgical plans and availability/timing for OR. Unclear how viable LLE will be given severe PAD and unable to have any revascularization surgery due to cardiac risk. Admission and Anticipated Discharge Date Admission Date: May 25, 2020 Subjective Patient seen sitting in chair at bedside, comfortable, denies pain. Denies F/C/N/V/SOB/CP. Review of Systems Review of Systems: All systems reviewed & are unremarkable except as noted in HPI & below Constitutional: as per Subjective / HPI Physical Exam Physical Exam: LLE improving cellulitis, worsening gangrene which now involves the distal aspect of the 3rd digit. Constitutional: WD/WN, vitals as above Results & Data ([facility]) Vital Signs (Past 12 Hours) Vital Signs Temp Pulse Resp BP BP Pulse Ox 05/29/20 15:26 36.6 C 101 H 18 107/70 98 05/29/20 07:08 36.3 C L 92 H 18 104/67 99
--- NOTE | 2020-05-29 20:08 | Hospitalist Progress Note ---
Date of Service May 29, 2020 Assessment & Plan (1) Cellulitis of left lower extremity: Cellulitis of left lower extremity: 85-year-old male with a past medical history significant for severe PAD, CAD status post PCI in 2005, HFrEF, ischemic cardiomyopathy, hypertension, hyperlipidemia, DM 2, previous osteomyelitis of the left foot admitted for left lower extremity wounds by orthopedic service, found to have left lower extremity cellulitis. Left lower extremity cellulitis /left lower extremity wounds: -Noted on exam to have cellulitis up to the area of the left tibial tuberosity, with multiple shallow ulcerations of the left lower extremity, as well as purulent drainage from great left toe and necrotic dusky appearing left third toe. -CBC with leukocytosis to 14.54 with left shift, increased from 6.93 on 05/10. -Blood cultures collected. -Patient was already started on vancomycin on admission, Improving with vancomycin will add Zosyn for broad-spectrum coverage. -Surgery is cancelled. will continue IV antibiotics and monitor. -Transferred to medical Erythema has improved. Still mildy red. He has been improving with mainly vanco, started zosyn on day 3 . Given that erythema is improving, will reconsult ortho for possible amputation as there appears to be a neccotic toe. Awaiting input: dylon likely need amuptation prior to discharge as this is likely contributing to his cellulitis. Hyponatremia: -Chronic; most recent Na of 128 on 05/22. -Na: 130, continue to monitor. -Will not start fluids in this patient given significant systolic dysfunction. (2) Ulcer of toe of left foot: (3) HFrEF (heart failure with reduced ejection fraction): -Recently diagnosed on admission less than 1 month ago to have reduced EF to 25% with global hypokinesis. -Catheterization was considered, however patient deferred and decision was made to medically manage. -Continue Entresto, beta-maryam, aspirin, Plavix, statin. Lasix held for possible surgery: however now with edema, placed on IV lasix. -Cardiology consult while admitted as above for clearance given possible surgery. (4) Ischemic cardiomyopathy: as stated above. (5) PAD (peripheral artery disease): on plavix, statin. (6) Hypertension: -Continue home metoprolol, Lasix, Entresto. (7) Hyperlipidemia: Hyperlipidemia: -Continue home simvastatin (8) Diabetes mellitus, type 2: -Metformin and glimepiride home medications held. -Insulin sliding scale ordered. -Continue gabapentin for nerve pain. -Hgb A1c ordered with morning labs. Admission and Anticipated Discharge Date Admission Date: May 25, 2020 Subjective Patient reports feeling well, has no new complaints. He states his redness has continued to decrease, Review of Systems Review of Systems: All systems reviewed & are unremarkable except as noted in HPI & below Physical Exam Physical Exam: Constitutional: WD/WN, vitals as above Eyes: PERRL, conjunctivae normal, anicteric sclerae ENMT: external ear and nose normal, oropharynx normal Neck: normal visual inspection Respiratory: normal respiratory effort, lungs clear to auscultation Auscultation: no crackles and no wheezes Cardiovascular: Rate/Rhythm: regular rate and regular rhythm Heart Sounds: no murmur Extremities: + edema (1-2+ bilateral LE) Gastrointestinal (Abdomen): normal bowel sounds, soft, nontender, no hepatosplenomegaly Skin: 6cm shallow ulceration on posterior left calf. decreased erythema, tenderness noted on LLE to the level of the tibial tuberosity. RLE with chronic venous stasis changes / +2 pitting edema noted in lower extremities Psychiatric: A+Ox3, euthymic affect Results & Data Results & Data ([facility]) Vital Signs (Past 12 Hours) Vital Signs Temp Pulse Resp BP Pulse Ox 05/29/20 15:26 36.6 C 101 H 18 107/70 98 PG Care Time/CCT Total # of Minutes Spent Total Time Spent with Patient: Total time spent is greater than 50% in coordination of care (as documented) at patient's floor/unit and/or counseling patient: Coding Level of Care Code 97989 Subseq Hosp Care Lvl 3 Diagnoses Cellulitis of left lower extremity L03.116 Ulcer of toe of left foot L97.521 Non-pressure ulcer stage: limited to breakdown of skin HFrEF (heart failure with reduced ejection fraction) I50.20 Ischemic cardiomyopathy I25.5 PAD (peripheral artery disease) I73.9 Hypertension I10 Hypertension type: essential hypertension Hyperlipidemia E78.5 Hyperlipidemia type: unspecified Diabetes mellitus, type 2 E11.59 Diabetes mellitus complication detail: with other circulatory complica tions Diabetes mellitus complication status: with circulatory complication Diabetes mellitus senior living insulin use: without senior living use (1) Diabetes mellitus, type 2 Diabetes mellitus complication detail: with other circulatory complications Diabetes mellitus complication status: with circulatory complication Diabetes mellitus senior living insulin use: without terminal gauger supervisor use Qualified Code(s): E11.59 - Type 2 diabetes mellitus with other circulatory complications (2) Hyperlipidemia Hyperlipidemia type: unspecified Qualified Code(s): E78.5 - Hyperlipidemia, unspecified (3) Ulcer of toe of left foot Non-pressure ulcer stage: limited to breakdown of skin Qualified Code(s): L97.521 - Non-pressure chronic ulcer of other part of left foot limited to breakdown of skin (4) Hypertension Hypertension type: essential hypertension Qualified Code(s): I10 - Essential (primary) hypertension
[2020-05-30] MEDS: PIPERACILLIN/TAZOBACTAM 3.375 GM in DEXTROSE 5% 100 ML IV SCH ×3 (02:35→17:57)
[2020-05-30 06:18] LABS: Basophils # (auto) 0.01 K/uL (0-0.2); Basophils % (auto) 0.1 %; Eosinophils # (auto) 0.23 K/uL (0-0.5); Eosinophils % (auto) 2.7 %; Hematocrit (blood only) 35.4 % (42-52); Hemoglobin 11.9 g/dL (14.0-18.0); Immature Granulocytes # (auto) 0.03 K/uL (0.00-0.02); Immature Granulocytes % (auto) 0.3 %; Lymphocytes # (auto) 0.61 K/uL (1.2-3.4); Lymphocytes % (auto) 7.1 %; Mean Corpuscular Hemoglobin 30.9 pg (25-34); Mean Corpuscular Hgb Conc 33.6 g/dL (32-36); Mean Corpuscular Volume 91.9 fL (80-100); Mean Platelet Volume 9.9 fL (7.4-10.4); Monocytes # (auto) 0.57 K/uL (0.11-0.59); Monocytes % (auto) 6.6 %; Neutrophils % (auto) 83.2 %; Platelet Count 391 K/uL (130-400); RDW Coefficient of Variation 13.8 % (11.5-14.5); RDW Standard Deviation 46.2 fL (36.4-46.3); Red Blood Count 3.85 M/uL (4.7-6.1); White Blood Count 8.65 K/uL (4.8-10.8)
[2020-05-30 06:46] LABS: Alanine Aminotransferase 43 U/L (12-78); Albumin Level 2.1 gm/dl (3.4-5.0); Aspartate Aminotransferase 15 U/L (15-37); Bilirubin Direct < 0.1 mg/dl (0-0.2); Blood Urea Nitrogen 21 mg/dl (7-18); Calcium 8.1 mg/dl (8.5-10.1); Carbon Dioxide 23 mmol/L (21-32); Chloride 101 mmol/L (98-107); Est GFR (African American) 95.1; Glucose 155 mg/dl (70-99); Potassium 4.1 mmol/L (3.5-5.1); Sodium 131 mmol/L (136-145)
[2020-05-30 06:49] LABS: Alkaline Phosphatase 79 U/L (45-117); Bilirubin,Total 0.5 mg/dl (0.2-1); Total Protein 5.9 gm/dl (6.4-8.2)
--- NOTE | 2020-05-30 07:34 | Pharmacy Report ---
Pharmacy Abx Dose Short Note - Date of Service May 30, 2020 - Assessment & Plan Assessment 85 year old M receiving VANCOMYCIN + ZOSYN for treatment of CELLULITIS Day # 6 of antimicrobial therapy. Plan Vancomycin * Trough level of 15.5 mcg/mL is therapeutic * Continue dose of 1,000 mg IV every 16 hours * Goal trough level for SST : 10 to 20 mcg/mL * Will repeat a trough level in a few days or sooner if clinical warranted (change in renal function, febrile, etc) Pharmacy will continue to follow and will adjust dose/frequency as necessary. Thank you.
[2020-05-30] MEDS: DOCUSATE SODIUM 100 MG CAP PO SCH ×2 (09:04→21:38)
[2020-05-30] MEDS: METOPROLOL SUCC 50MG EXT REL TAB PO SCH ×2 (09:04→21:38)
[2020-05-30] MEDS: GABAPENTIN 100 MG CAP PO SCH ×2 (09:04→21:38)
[2020-05-30] MEDS: FUROSEMIDE 40 MG in SYRINGE 0 ML IV SCH ×2 (09:04→17:57)
[2020-05-30] MEDS: SACUBITRIL-VALSARTAN 24-26 MG TAB PO SCH ×2 (09:05→21:37)
[2020-05-30] MEDS: CLOPIDOGREL BISULFATE 75 MG TAB PO SCH (09:05)
[2020-05-30] MEDS: ASPIRIN 81 MG ECTAB PO SCH (09:05)
[2020-05-30] MEDS: MULTIVITAMIN TAB PO SCH (09:05)
[2020-05-30] MEDS: SIMVASTATIN 40 MG TAB PO SCH (09:05)
[2020-05-30] MEDS: VANCOMYCIN HCL 1,000 MG in SODIUM CHLORIDE 0.9% 250 ML IV SCH ×2 (09:08→22:52)
[2020-05-30] MEDS: INSULIN ASPART 100 UNITS/ML 3 ML PEN SC SCH ×4 (09:11→21:39)
--- NOTE | 2020-05-30 12:47 | Hospitalist Progress Note ---
Date of Service May 30, 2020 Assessment & Plan (1) Ulcer of toe of left foot: Seen by [facility]. Plan for Dr. Brumfield to amputate the toe on Friday, 06/02. - Continue vanc/Zosyn for now - Pain control (2) Cellulitis of left lower extremity: Initially with cellulitis of left lower extremity. Was admitted by orthopedic service with plan for surgery on left foot. This was canceled due to the left lower extremity cellulitis. - Also with a left heel ulcer, likely at least Stage 3, present on arrival. - Erythema improved - Plan for surgery now as above (3) HFrEF (heart failure with reduced ejection fraction): Recently diagnosed. EF on 05/08/2020 showed EF 25 - 30% with global hypokinesis. Catheterization was considered; however, patient deferred and decision was made to medically manage. - Cardiology consulted for clearance given possible surgery -> Seen on 05/26 with no recommendations for further testing prior to surgery. - Continue Entresto, beta-maryam, aspirin, Plavix, statin. (4) Ischemic cardiomyopathy: As stated above. (5) Diabetes mellitus, type 2: A1c was 7.4% this admission. - Hold home metformin and glimepiride - Continue gabapentin for nerve pain. - Insulin sliding scale ordered -> Last 24 hour blood sugars generally 125 - 200. Will slightly tighten correction factor. (6) PAD (peripheral artery disease): With known right/left mid SFA subtotal occlusion per vascular note on 04/26/2019. - Continue ASA, Plavix, statin (7) Hypertension: BP today is 110/70. - Continue home metoprolol, Entresto - Continue Lasix IV as above (8) Hyperlipidemia: - Continue home simvastatin (9) DVT prophylaxis: Heparin 5,000 units SQ Q12h Admission and Anticipated Discharge Date Admission Date: May 25, 2020 Subjective Willing to have surgery. Toe is stable. Reports no fevers/chills, chest pain, shortness of breath, abdominal pain, nausea, or vomiting. Physical Exam Constitutional: WD/WN, vitals as above Eyes: EOM intact bilaterally; no conjunctival abnormality ENMT: external ear and nose normal, oropharynx normal Neck: trachea midline, no thyromegaly normal visual inspection Respiratory: normal respiratory effort, lungs clear to auscultation no respiratory distress Cardiovascular: RRR, no murmur, no edema Gastrointestinal (Abdomen): Inspection/Auscultation: abdomen normal to inspec tion; abdomen not distended Musculoskeletal: no cyanosis or clubbing, extremities motor strength 5/5 Skin: no rashes, warm and dry Neurologic: moves all extremities and awake Psychiatric: Orientation: alert, oriented to person and cooperative Results & Data Results & Data ([facility]) Vital Signs (Past 12 Hours) Vital Signs Temp Pulse Resp BP Pulse Ox 05/30/20 07:51 36.7 C 86 16 111/69 100 PG Care Time/CCT Total # of Minutes Spent Total Time Spent with Patient: Total time spent is greater than 50% in coordination of care (as documented) at patient's floor/unit and/or counseling patient: Coding Level of Care Code 48500 Subseq Hosp Care Lvl 3 Diagnoses Ulcer of toe of left foot L97.521 Non-pressure ulcer stage: limited to breakdown of skin Cellulitis of left lower extremity L03.116 HFrEF (heart failure with reduced ejection fraction) I50.20 Ischemic cardiomyopathy I25.5 Diabetes mellitus, type 2 E11.59 Diabetes mellitus bed bug exterminator insulin use: without alf use Diabetes mellitus complication status: with circulatory complication Diabetes mellitus complication detail: with other circulatory complications PAD (peripheral artery disease) I73.9 Hypertension I10 Hypertension type: essential hypertension Hyperlipidemia E78.5 Hyperlipidemia type: unspecified DVT prophylaxis Z29.9 (1) Ulcer of toe of left foot Non-pressure ulcer stage: limited to breakdown of skin Qualified Code(s): L97.521 - Non-pressure chronic ulcer of other part of left foot limited to breakdown of skin (2) Hypertension Hypertension type: essential hypertension Qualified Code(s): I10 - Essential (primary) hypertension (3) Hyperlipidemia Hyperlipidemia type: unspecified Qualified Code(s): E78.5 - Hyperlipidemia, unspecified (4) Diabetes mellitus, type 2 Diabetes mellitus alf insulin use: without bed bug exterminator use Diabetes mellitus complication status: with circulatory complication Diabetes mellitus complication detail: with other circulatory complications Qualified Code(s): E11.59 - Type 2 diabetes mellitus with other circulatory complications
--- NOTE | 2020-05-30 14:42 | Heart Failure Progress Note ---
Date of Service May 30, 2020 Assessment & Plan (1) Ischemic cardiomyopathy: (2) HFrEF (heart failure with reduced ejection fraction): (3) Cellulitis of left lower extremity: (4) Coronary artery disease: (1) Acute systolic (congestive) heart failure: 1. Acute systolic heart failure 2. Presumed ischemic cardiomyopathy, EF 25%, apical akinesis, new inferior wall motion abnormality 3. Multivessel CADstatus post PCI to LAD in 2005 4. PADknown bilateral SFA occlusions, severe tibial disease 5. Bilateral lower extremity ulcerations 6. Type 2 diabetes Patient appears hypervolemic on exam. Recommend increasing Lasix to 40 mg IV BID. Strive for net negative fluid balance, 1-2 L per day. Monitor kidney function and electrolytes. Continue daily standing weights. Strict I&Os. Low sodium diet. Fluid restriction. Could also consider the addition of Spironolactone for diuretic effect as well as cardiomyopathy benefits. Recent echocardiogram which shows new severe LV dysfunction with regional wall motion abnormalities. In the setting of patient's history of multivessel d isease and prior LAD stenting, mildly elevated troponin and ECG with dynamic ST changes suspect LV dysfunction likely secondary to progressive CAD. Previously discussed potentially repeating cardiac catheterization to evaluate for potential revascularization options with Dr. Escalera. At this time as patient is largely asymptomatic and wishes to defer catheterization. We will optimize guideline directed medical therapy for his cardiomyopathy. Consider Spironolactone. Planning to go to the OR Friday for toe amputation. Continue to optimize his volume status in the mean time. Continue Lasix 40 mg IV BID. Continue current Toprol. Continue Entresto 24/26 mg BID. Continue DAPT with aspirin, clopidogrel Wound care follow-up on discharge Close heart failure follow-up on discharge. Admission and Anticipated Discharge Date Admission Date: May 25, 2020 Subjective Patient feeling well today. He's currently sitting at the bedside chair. Denies any chest pain. Denies any significant shortness of breath. No pain at rest and lower extremities bilaterally. His lower extremity edema is significantly worse. His weight is trending up over the past several days. He reports good urine output. Physical Exam Physical Exam: General: No acute distress, comfortable. HEENT: Head is normal. PERRLA. EOMI. Sclerae anicteric. Neck: Normal carotid upstrokes. JVP 1/2 way to neck Lungs: Decreased breath sounds and crackles at the bases bilaterally. Cardiac: Regular rate and rhythm. S1-S2 normal. No appreciable murmur, gallop or rub. Abdomen: Soft and nontender. Bowel sounds normal. No mass or organomegaly. No abdominal bruit. Extremities/vascular: --2-3+ BLE pitting edema bilaterally, now extending into the thighs. --Erythema, warmth of LLE nearly to the knee --Left 3rd digit appears ischemic, dusky in color and cool to touch. Distal digit with dry gangrenous changes --B/L shins with intact dressings, slightly saturated- nursing to change today. --Radial 2+ bilaterally --Femoral 2+ bilaterally --Popliteal, DP/PT pulses nonpalpable bilaterally --Cap refill intact Neurologic: Nonfocal Psychiatric: Affect appropriate. Alert and oriented. Results & Data ([facility]) Vital Signs (Past 12 Hours) Vital Signs Temp Pulse Resp BP Pulse Ox 05/30/20 07:51 98.1 F 86 16 111/69 100 PG Care Time/CCT Total # of Minutes Spent Total Time Spent with Patient: Total time spent is greater than 50% in coordination of care (as documented) at patient's floor/unit and/or counseling patient: Coding Level of Care Code 51383 Subseq Hosp Care Lvl 3 Diagnoses Ischemic cardiomyopathy I25.5 HFrEF (heart failure with reduced ejection fraction) I50.20 Cellulitis of left lower extremity L03.116 Coronary artery disease I25.10 Associated angina: without angina Coronary Disease-Associated Artery/Lesion type: [place] artery [place] vs. transplanted heart: [place] heart (1) Coronary artery disease Associated angina: without angina Coronary Disease-Associated Artery/Lesion type: [place] artery [place] vs. transplanted heart: [place] heart Qualified Code(s): I25.10 - Atherosclerotic heart disease of [place] coronary artery without angina pectoris
--- NOTE | 2020-05-30 16:29 | Communication Note ---
Date of Service: May 30, 2020 I checked in to see Mr. Goodman today. His third toe had worsened over the weekend and his dry gangrene has now become more of a wet gangrene. He states h e is relatively comfortable. I had spoken to Dr. Brumfield about the case. With the change in his third toe, plans will be for left third toe amputation with the possibility of a amputation of the distal phalanx of the great toe on Friday. Patient understands and is in agreement with the amputations.
[2020-05-30] MEDS: HEPARIN SOD 5,000 UNIT/0.5 ML VIAL SQ SCH (21:37)
[2020-05-31] MEDS: ACETAMINOPHEN 325 MG TAB PO PRN ×2 (01:13→23:44)
[2020-05-31] MEDS: PIPERACILLIN/TAZOBACTAM 3.375 GM in DEXTROSE 5% 100 ML IV SCH ×3 (01:13→18:17)
[2020-05-31 07:26] LABS: Hematocrit (blood only) 33.7 % (42-52); Hemoglobin 11.4 g/dL (14.0-18.0); Mean Corpuscular Hemoglobin 30.6 pg (25-34); Mean Corpuscular Hgb Conc 33.8 g/dL (32-36); Mean Corpuscular Volume 90.6 fL (80-100); Mean Platelet Volume 9.9 fL (7.4-10.4); Platelet Count 404 K/uL (130-400); RDW Coefficient of Variation 13.9 % (11.5-14.5); RDW Standard Deviation 46.4 fL (36.4-46.3); Red Blood Count 3.72 M/uL (4.7-6.1); White Blood Count 8.72 K/uL (4.8-10.8)
[2020-05-31 07:53] LABS: BUN Creatinine Ratio 22.9 (10-20); Creatinine Clr Calc Pharmacy 62.4 ml/min; Est GFR (African American) 89.4; Est GFR (Non-African American) 77.1; Magnesium 1.8 mg/dl (1.8-2.4)
[2020-05-31] MEDS: DOCUSATE SODIUM 100 MG CAP PO SCH ×2 (08:42→20:38)
[2020-05-31] MEDS: FUROSEMIDE 40 MG in SYRINGE 0 ML IV SCH ×2 (08:42→18:13)
[2020-05-31] MEDS: GABAPENTIN 100 MG CAP PO SCH ×2 (08:43→20:37)
[2020-05-31] MEDS: SIMVASTATIN 40 MG TAB PO SCH (08:43)
[2020-05-31] MEDS: METOPROLOL SUCC 50MG EXT REL TAB PO SCH ×2 (08:43→20:36)
[2020-05-31] MEDS: SACUBITRIL-VALSARTAN 24-26 MG TAB PO SCH ×2 (08:43→20:37)
[2020-05-31] MEDS: ASPIRIN 81 MG ECTAB PO SCH (08:44)
[2020-05-31] MEDS: MULTIVITAMIN TAB PO SCH (08:44)
[2020-05-31] MEDS: HEPARIN SOD 5,000 UNIT/0.5 ML VIAL SQ SCH ×2 (08:48→20:31)
[2020-05-31] MEDS: INSULIN ASPART 100 UNITS/ML 3 ML PEN SC SCH ×4 (08:51→20:52)
--- NOTE | 2020-05-31 09:24 | Heart Failure Progress Note ---
Date of Service May 31, 2020 Assessment & Plan (1) Ischemic cardiomyopathy: (2) HFrEF (heart failure with reduced ejection fraction): (3) Cellulitis of left lower extremity: (4) Coronary artery disease: (1) Acute systolic (congestive) heart failure: 1. Acute systolic heart failure 2. Presumed ischemic cardiomyopathy, EF 25%, apical akinesis, new inferior wall motion abnormality 3. Multivessel CADstatus post PCI to LAD in 2005 4. PADknown bilateral SFA occlusions, severe tibial disease 5. Bilateral lower extremity ulcerations 6. Type 2 diabetes Patient appears hypervolemic on exam. Kidney function remains stable. Continue Lasix to 40 mg IV BID. Strive for net negative fluid balance, 1-2 L per day. Patient reports good urine output, I&Os likely inaccurate. Monitor kidney function and electrolytes. Continue daily standing weights. Strict I&Os. Low sodium diet. Fluid restriction, 1500 ml added. Could also consider the addition of Spironolactone for diuretic effect as well as cardiomyopathy benefits. Recent echocardiogram which shows new severe LV dysfunction with regional wall motion abnormalities. In the setting of patient's history of multivessel disease and prior LAD stenting, mildly elevated troponin and ECG with dynamic ST changes suspect LV dysfunction likely secondary to progressive CAD. Previously discussed potentially repeating cardiac catheterization to evaluate for potential revascularization options with Dr. Escalera. At this time as patient is largely asymptomatic and wishes to defer catheterization. We will optimize guideline directed medical therapy for his cardiomyopathy. Consider Spironolactone. Planning to go to the OR Friday for toe amputation. Continue to optimize his volume status in the mean time. Continue Lasix 40 mg IV BID. Continue current Toprol. Continue Entresto 24/26 mg BID. Continue DAPT with aspirin, clopidogrel Wound care follow-up on discharge Close heart failure follow-up on discharge. Admission and Anticipated Discharge Date Admission Date: May 25, 2020 Subjective Patient reports he's feeling well. He's sitting in the chair without complaints today. He is planning on toe amputation on Friday. He denies shortness of breath, orthopnea, or PND. Lower extremity edema is slightly improved from yesterday. He's down 3 lb overnight. He denies chest pain, cough, lig htheadedness, palpitations. Physical Exam Physical Exam: General: No acute distress, comfortable. HEENT: Head is normal. PERRLA. EOMI. Sclerae anicteric. Neck: Normal carotid upstrokes. JVP 1/2 way to the mandible sitting upright. +HJR Lungs: Decreased breath sounds and faint crackles at the bases bilaterally. Cardiac: Regular rate and rhythm. S1-S2 normal. No appreciable murmur, gallop or rub. Abdomen: Soft and nontender. Bowel sounds normal. No mass or organomegaly. No abdominal bruit. Extremities/vascular: --2-3+ BLE pitting edema bilaterally, R>L, now extending into the thighs. --Erythema, warmth of LLE nearly to the knee --B/L shins with intact dressings --Radial 2+ bilaterally --Femoral 2+ bilaterally --Popliteal, DP/PT pulses nonpalpable bilaterally --Cap refill intact Neurologic: Nonfocal Psychiatric: Affect appropriate. Alert and oriented. Results & Data ([facility]) Vital Signs (Past 12 Hours) Vital Signs Temp Pulse Resp BP Pulse Ox 05/31/20 07:30 97.7 F 96 H 18 105/68 98 05/30/20 22:18 98.2 F 98 H 20 105/69 99 05/30/20 21:44 97 H 105/62 PG Care Time/CCT Total # of Minutes Spent Total Time Spent with Patient: Total time spent is greater than 50% in coordination of care (as documented) at patient's floor/unit and/or counseling patient: Coding Level of Care Code 17568 Subseq Hosp Care Lvl 3 Diagnoses Ischemic cardiomyopathy I25.5 HFrEF (heart failure with reduced ejection fraction) I50.20 Cellulitis of left lower extremity L03.116 Coronary artery disease I25.10 Coronary Disease-Associated Artery/Lesion type: [place] artery [place] vs. transplanted heart: [place] heart Associated angina: without angina (1) Coronary artery disease Coronary Disease-Associated Artery/Lesion type: [place] artery [place] vs. transplanted heart: [place] heart Associated angina: without angina Qualified Code(s): I25.10 - Atherosclerotic heart disease of [place] coronary artery without angina pectoris
[2020-05-31 11:45] LABS: Influenza A virus by PCR Negative (Neg); Influenza B virus by PCR Negative (Neg); RSV by PCR Negative (Neg); SARS CoV2 RNA(COVID-19) InHosp NEGATIVE (Negative)
--- NOTE | 2020-05-31 13:05 | Hospitalist Progress Note ---
Date of Service May 31, 2020 Assessment & Plan (1) Ulcer of toe of left foot: Seen by [facility]. Plan for Dr. Brumfield to amputate the toe on Friday, 06/02. - Continue vanc/Zosyn for now - Pain control -> Very comfortable. Using just Tylenol. (2) Cellulitis of left lower extremity: Initially with cellulitis of left lower extremity. Was admitted by orthopedic service with plan for surgery on left foot. This was canceled due to the left lower extremity cellulitis. - Also with a right heel ulcer, likely at least Stage 3, present on arrival. - Erythema improved - Plan for surgery now as above (3) HFrEF (heart failure with reduced ejection fraction): Recently diagnosed. EF on 05/08/2020 showed EF 25 - 30% with global hypokinesis. Catheterization was considered; however, patient deferred and decision was made to medically manage. - Cardiology consulted for clearance given possible surgery -> Seen on 05/26 with no recommendations for further testing prior to surgery. - Continue Entresto, beta-maryam, aspirin, statin. - Plavix likely to hold until after surgery. - Increased Lasix to 40 mg IV BID in discussion with Heart Failure PA who feels he has slight hyperovolemia. (4) Ischemic cardiomyopathy: As stated above. (5) Diabetes mellitus, type 2: A1c was 7.4% this admission. - Hold home metformin and glimepiride - Continue gabapentin for nerve pain. - Insulin sliding scale ordered -> Last 24 hour blood sugars generally 140 - 250. Will slightly tighten correction factor. (6) PAD (peripheral artery disease): With known right/left mid SFA subtotal occlusion per vascular note on 04/26/2019. - Continue ASA, statin - Discussing with ortho re: Plavix; can probably hold temporarily without issue. (7) Hypertension: BP today is 105/70. - Continue home metoprolol, Entresto - Continue Lasix IV as above (8) Hyperlipidemia: - Continue home simvastatin (9) DVT prophylaxis: Heparin 5,000 units SQ Q12h Admission and Anticipated Discharge Date Admission Date: May 25, 2020 Subjective Doing well today. Feels swelling is improving. Reports no fevers/chills, chest pain, shortness of breath, abdominal pain, nausea, or vomiting. Physical Exam Constitutional: WD/WN, vitals as above Eyes: EOM intact bilaterally; no conjunctival abnormality ENMT: external ear and nose normal, oropharynx normal Neck: trachea midline, no thyromegaly normal visual inspection Respiratory: normal respiratory effort, lungs clear to auscultation no respiratory distress Cardiovascular: Rate/Rhythm: regular rate and regular rhythm Heart Sounds: normal S1 and normal S2 Extremities: + edema Gastrointestinal (Abdomen): Inspection/Auscultation: abdomen normal to inspection; abdomen not distended Musculoskeletal: no cyanosis or clubbing, extremities motor strength 5/5 Skin: no rashes, warm and dry Neurologic: moves all extremities and awake Psychiatric: Orientation: alert, oriented to person and cooperative Results & Data Results & Data ([facility]) Vital Signs (Past 12 Hours) Vital Signs Temp Pulse Resp BP Pulse Ox 05/31/20 07:30 36.5 C 96 H 18 105/68 98 PG Care Time/CCT Total # of Minutes Spent Total Time Spent with Patient: Total time spent is greater than 50% in coordination of care (as documented) at patient's floor/unit and/or counseling patient: Coding Level of Care Code 00002 Subseq Hosp Care Lvl 3 Diagnoses Ulcer of toe of left foot L97.521 Non-pressure ulcer stage: limited to breakdown of skin Cellulitis of left lower extremity L03.116 HFrEF (heart failure with reduced ejection fraction) I50.20 Ischemic cardiomyopathy I25.5 Diabetes mellitus, type 2 E11.59 Diabetes mellitus detention insulin use: without detention use Diabetes mellitus complication status: with circulatory complication Diabetes mellitus complication detail: with other circulatory complications PAD (peripheral artery disease) I73.9 Hypertension I10 Hypertension type: essential hypertension Hyperlipidemia E78.5 Hyperlipidemia type: unspecified DVT prophylaxis Z29.9 (1) Ulcer of toe of left foot Non-pressure ulcer stage: limited to breakdown of skin Qualified Code(s): L97.521 - Non-pressure chronic ulcer of other part of left foot limited to breakdown of skin (2) Diabetes mellitus, type 2 Diabetes mellitus detention insulin use: without watermaster use Diabetes mellitus complication status: with circulatory complication Diabetes mellitus complication detail: with other circulatory complications Qualified Code(s): E11.59 - Type 2 diabetes mellitus with other circulatory complications (3) Hypertension Hypertension type: essential hypertension Qualified Code(s): I10 - Essential (primary) hypertension (4) Hyperlipidemia Hyperlipidemia type: unspecified Qualified Code(s): E78.5 - Hyperlipidemia, unspecified
[2020-05-31] MEDS: CLOPIDOGREL BISULFATE 75 MG TAB PO SCH (14:48)
[2020-05-31] MEDS: VANCOMYCIN HCL 1,000 MG in SODIUM CHLORIDE 0.9% 250 ML IV SCH (15:42)
[2020-06-01] MEDS: PIPERACILLIN/TAZOBACTAM 3.375 GM in DEXTROSE 5% 100 ML IV SCH ×3 (01:52→19:41)
[2020-06-01] MEDS ORDERED: IBUPROFEN 800 MG TAB PO STA (02:14)
[2020-06-01 07:36] LABS: Hematocrit (blood only) 33.1 % (42-52); Hemoglobin 10.7 g/dL (14.0-18.0); Mean Corpuscular Hemoglobin 29.7 pg (25-34); Mean Corpuscular Hgb Conc 32.3 g/dL (32-36); Mean Corpuscular Volume 91.9 fL (80-100); Mean Platelet Volume 9.8 fL (7.4-10.4); Platelet Count 371 K/uL (130-400); RDW Coefficient of Variation 13.8 % (11.5-14.5); RDW Standard Deviation 46.5 fL (36.4-46.3); White Blood Count 7.81 K/uL (4.8-10.8)
[2020-06-01 08:00] LABS: BUN Creatinine Ratio 29.9 (10-20); Calcium 8.1 mg/dl (8.5-10.1); Creatinine Clr Calc Pharmacy 69.2 ml/min; Est GFR (African American) 94.1; Est GFR (Non-African American) 81.2; Magnesium 1.8 mg/dl (1.8-2.4); Potassium 3.8 mmol/L (3.5-5.1)
[2020-06-01] MEDS: VANCOMYCIN HCL 1,000 MG in SODIUM CHLORIDE 0.9% 250 ML IV SCH ×2 (08:47→23:36)
[2020-06-01] MEDS: FUROSEMIDE 40 MG in SYRINGE 0 ML IV SCH ×2 (08:47→18:53)
[2020-06-01] MEDS: HEPARIN SOD 5,000 UNIT/0.5 ML VIAL SQ SCH (08:48)
[2020-06-01] MEDS: ASPIRIN 81 MG ECTAB PO SCH (08:48)
[2020-06-01] MEDS: SACUBITRIL-VALSARTAN 24-26 MG TAB PO SCH ×2 (08:48→21:42)
[2020-06-01] MEDS: SIMVASTATIN 40 MG TAB PO SCH (08:48)
[2020-06-01] MEDS: METOPROLOL SUCC 50MG EXT REL TAB PO SCH ×2 (08:49→21:42)
[2020-06-01] MEDS: GABAPENTIN 100 MG CAP PO SCH ×2 (08:49→21:42)
[2020-06-01] MEDS: MULTIVITAMIN TAB PO SCH (08:49)
[2020-06-01] MEDS: DOCUSATE SODIUM 100 MG CAP PO SCH ×2 (08:49→21:42)
[2020-06-01] MEDS: INSULIN ASPART 100 UNITS/ML 3 ML PEN SC SCH ×4 (08:50→21:42)
--- NOTE | 2020-06-01 11:01 | Orthopedic Progress Note ---
Date of Service June 01, 2020 Assessment & Plan (1) Gangrene of toe of left foot: Patient has been added onto the surgical schedule for tomorrow for Dr. Brumfield. Plan for left third toe amputation with the possibility of the left great toe distal phalanx amputation. Possible debridement of right heel wound. Patient has been made n.p.o. after midnight. Admission and Anticipated Discharge Date Admission Date: May 25, 2020 Subjective Patient sitting in his chair at the bedside. No complaints today. Comfortable. Discussed his planned surgery for tomorrow. Patient seen with wound care team. Attention has been drawn to his right heel which has changed. Wound care feels that this has become much more soft and there appeared to be a fluid filled collection in that area. Physical Exam Physical Exam: Right heel with ecchymosis and little bit of macerated tissue around the wound edge. The wound was just dressed by the wound care team and there is no obvious drainage noted on this at this time. Left foot has not changed. Third toe is black and slightly moist. No other changes in the toes at this time. Tip of the great toe has a small eschar noted. Results & Data ([facility]) Vital Signs (Past 12 Hours) Vital Signs Temp Pulse Resp BP Pulse Ox 06/01/20 07:12 36.4 C L 85 16 109/68 90
--- NOTE | 2020-06-01 14:16 | Hospitalist Progress Note ---
Date of Service June 01, 2020 Assessment & Plan (1) Ulcer of toe of left foot: Seen by [facility]. Plan for Dr. Brumfield to amputate the toe on Friday, 06/02. - Continue vanc/Zosyn for now - Pain control -> Very comfortable. Using just Tylenol. (2) Cellulitis of left lower extremity: Initially with cellulitis of left lower extremity. Was admitted by orthopedic service with plan for surgery on left foot. This was canceled due to the left lower extremity cellulitis. - Also with a right heel ulcer, likely at least Stage 3, present on arrival. - Erythema improved - Plan for surgery now as above -> May also need heel debridement as well. (3) HFrEF (heart failure with reduced ejection fraction): Recently diagnosed. EF on 05/08/2020 showed EF 25 - 30% with global hypokinesis. Catheterization was considered; however, patient deferred and decision was made to medically manage. - Cardiology consulted for clearance given possible surgery -> Seen on 05/26 with no recommendations for further testing prior to surgery. - Continue Entresto, beta-maryam, aspirin, statin. - Plavix to hold until after surgery. - Increased Lasix to 40 mg IV BID on 05/30 in discussion with Heart Failure PA. (4) Ischemic cardiomyopathy: As stated above. (5) Diabetes mellitus, type 2: A1c was 7.4% this admission. - Hold home metformin and glimepiride - Continue gabapentin for nerve pain. - Insulin sliding scale ordered -> Last 24 hour blood sugars generally 140 - 250. Will slightly tighten correction factor. (6) PAD (peripheral artery disease): With known right/left mid SFA subtotal occlusion per vascular note on 04/26/2019. - Continue ASA, statin - Hold Plavix until after surgery. (7) Hypertension: BP today is 110/70. - Continue home metoprolol, Entresto - Continue Lasix IV as above (8) Hyperlipidemia: - Continue home simvastatin (9) DVT prophylaxis: Heparin 5,000 units SQ Q12h - Hold tonight before surgery Admission and Anticipated Discharge Date Admission Date: May 25, 2020 Subjective Doing well today. No events overnight. Reports no fevers/chills, chest pain, shortness of breath, abdominal pain, nausea, or vomiting. Physical Exam Constitutional: WD/WN, vitals as above Eyes: EOM intact bilaterally; no conjunctival abnormality ENMT: external ear and nose normal, oropharynx normal Neck: trachea midline, no thyromegaly normal visual inspection Respiratory: normal respiratory effort, lungs clear to auscultation no respiratory distress Cardiovascular: RRR, no murmur, no edema Rate/Rhythm: regular rate and regular rhythm Heart Sounds: normal S1 and normal S2 Extremities: + edema (Minimal; more on right than left.) Gastrointestinal (Abdomen): Inspection/Auscultation: abdomen normal to inspection; abdomen not distended Musculoskeletal: no cyanosis or clubbing, extremities motor strength 5/5 Skin: no rashes, warm and dry Neurologic: moves all extremities and awake Psychiatric: Orientation: alert, oriented to person and cooperative Results & Data Results & Data ([facility]) Vital Signs (Past 12 Hours) Vital Signs Temp Pulse Resp BP Pulse Ox 06/01/20 07:12 36.4 C L 85 16 109/68 90 PG Care Time/CCT Total # of Minutes Spent Total Time Spent with Patient: Total time spent is greater than 50% in coordination of care (as documented) at patient's floor/unit and/or counseling patient: Coding Level of Care Code 05153 Subseq Hosp Care Lvl 3 Diagnoses Ulcer of toe of left foot L97.521 Non-pressure ulcer stage: limited to breakdown of skin Cellulitis of left lower extremity L03.116 HFrEF (heart failure with reduced ejection fraction) I50.20 Ischemic cardiomyopathy I25.5 Diabetes mellitus, type 2 E11.59 Diabetes mellitus halfway insulin use: without halfway use Diabetes mellitus complication status: with circulatory complication Diabetes mellitus complication detail: with other circulatory complications PAD (peripheral artery disease) I73.9 Hypertension I10 Hypertension type: essential hypertension Hyperlipidemia E78.5 Hyperlipidemia type: unspecified DVT prophylaxis Z29.9 (1) Ulcer of toe of left foot Non-pressure ulcer stage: limited to breakdown of skin Qualified Code(s): L97.521 - Non-pressure chronic ulcer of other part of left foot limited to breakdown of skin (2) Diabetes mellitus, type 2 Diabetes mellitus halfway insulin use: without halfway use Diabetes mellitus complication status: with circulatory complication Diabetes mellitus complication detail: with other circulatory complications Qualified Code(s): E11.59 - Type 2 diabetes mellitus with other circulatory complications (3) Hypertension Hypertension type: essential hypertension Qualified Code(s): I10 - Essential (primary) hypertension (4) Hyperlipidemia Hyperlipidemia type: unspecified Qualified Code(s): E78.5 - Hyperlipidemia, unspecified
[2020-06-01] MEDS ORDERED: GADOBUTROL 65ML VIAL IV ONE (17:26)
--- NOTE | 2020-06-01 18:04 | Magnetic Resonance Report ---
MR foot RT wo/w con CLINICAL HISTORY: Right foot swelling and pain. Evaluate for ostomy myelitis. COMPARISON STUDY: No previous studies for comparison. TECHNIQUE: Utilizing a 1.5 Melissa magnet and dedicated coil, multiplanar, multiecho imaging of the rig ht midfoot and forefoot was performed pre and postcontrast administration. Intravenous injection of 7 .4 cc of Gadavist was uneventful. FINDINGS: Please note that the MRI of the right hindfoot/ankle will be reported separately. This exam is compromised by motion artifact. The tarsometatarsal joints are intact. Note is made of a 1.4 cm s ubchondral focus of signal abnormality within the distal talus. This is degenerative. There is no acu te fracture within the right midfoot or forefoot. There is no radiographic evidence for osteomyelitis within the right midfoot or forefoot. No fluid collection is identified to suggest an abscess. Note is made of extensive dorsal subcutaneous swelling of the foot. 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 No suspicious marrow replacement is present. There is minimal mu ltifocal marrow edema within the right midfoot and forefoot without evidence for osteomyelitis. Visua lized portions of the flexor and extensor tendons are intact. IMPRESSION: 1. No evidence for osteomyelitis within the right midfoot or forefoot. 2. Extensive dorsal soft tissue subcutaneous edema of the right foot. This may reflect cellulitis or edema. No abscess. ACT 112: Negative or not required by law. Electronically signed by: Jaime Bloom M.D. 06/01/2020 6:02 PM
--- NOTE | 2020-06-01 18:17 | Magnetic Resonance Report ---
MR ankle RT wo/w con CLINICAL HISTORY: Heel ulcer, possible abscess or osteo COMPARISON STUDY: None. TECHNIQUE: Utilizing a 1.5 Melissa magnet and dedicated coil, multiplanar, multiecho imaging of the rig ht hindfoot and ankle was performed pre and postcontrast administration. Intravenous injection of 7.4 cc of Gadavist was uneventful. FINDINGS: Please note that the MRI of the right forefoot and midfoot will be reported separately. Ext ensive edema of the right ankle and foot is noted. There is no fluid collection is suggest an abscess . Exam is mildly compromised by motion artifact although is diagnostic. There is no marrow edema to s uggest osteomyelitis within the right hindfoot or forefoot. Subchondral signal abnormality within the distal talus is degenerative. There is also a 4 mm focus of subchondral signal abnormality within th e medial talar dome which is also degenerative. There is no fracture. The Achilles is intact. Plantar fascia is intact. Subtalar joint is intact. No tibiotalar joint effusion is noted. Visualized portio ns of the flexor, extensor and peroneal tendons are intact. Anterior talofibular ligament is intact. The anterior and posterior tibiofibular ligaments are intact. IMPRESSION: 1. No evidence for osteomyelitis within the right ankle or hindfoot. 2. Extensive T2 signal within the right ankle and foot which may reflect cellulitis or edema. No flui d collection to suggest abscess. 3. Subchondral signal abnormality within the distal talus and the talar dome which is degenerative. ACT 112: Negative or not required by law. Electronically signed by: Jaime Bloom M.D. 06/01/2020 6:15 PM
--- NOTE | 2020-06-01 18:39 | Ultrasound Report ---
RIGHT LOWER EXTREMITY VENOUS DOPPLER CLINICAL HISTORY: RLE swelling COMPARISON STUDY: No previous studies for comparison. TECHNIQUE: Sonography of the deep venous system of the right lower extremity was performed. Compress ion and augmentation were evaluated. FINDINGS: The right common femoral, superficial femoral and popliteal veins were compressible. Augme ntation was normal. Flow was shown within the deep calf vessels. IMPRESSION: No evidence of deep venous thrombus within the right lower extremity. ACT 112: Negative or not required by law. Electronically signed by: Jaime Bloom M.D. 06/01/2020 6:38 PM
[2020-06-02] MEDS ORDERED: Nursing to Pharmacy Communication SCH ×2 (01:45→19:15)
[2020-06-02] MEDS: PIPERACILLIN/TAZOBACTAM 3.375 GM in DEXTROSE 5% 100 ML IV SCH ×3 (02:45→19:27)
[2020-06-02] MEDS: ACETAMINOPHEN 325 MG TAB PO PRN ×2 (03:45→18:50)
[2020-06-02] MEDS: INSULIN ASPART 100 UNITS/ML 3 ML PEN SC SCH ×3 (05:59→19:10)
[2020-06-02] MEDS ORDERED: IBUPROFEN 800 MG TAB PO STA (06:14)
[2020-06-02 06:24] LABS: Hematocrit (blood only) 35.1 % (42-52); Hemoglobin 11.2 g/dL (14.0-18.0); Mean Corpuscular Hemoglobin 29.4 pg (25-34); Mean Corpuscular Hgb Conc 31.9 g/dL (32-36); Mean Corpuscular Volume 92.1 fL (80-100); Mean Platelet Volume 9.9 fL (7.4-10.4); Platelet Count 383 K/uL (130-400); RDW Standard Deviation 47.3 fL (36.4-46.3); Red Blood Count 3.81 M/uL (4.7-6.1); White Blood Count 8.88 K/uL (4.8-10.8)
[2020-06-02 06:58] LABS: BUN Creatinine Ratio 36.4 (10-20); Calcium 8.3 mg/dl (8.5-10.1); Creatinine Clr Calc Pharmacy 65.3 ml/min; Est GFR (African American) 91.9; Est GFR (Non-African American) 79.3; Magnesium 1.8 mg/dl (1.8-2.4); Potassium 3.7 mmol/L (3.5-5.1)
[2020-06-02] MEDS ORDERED: ROPIVACAINE 0.5% 5 MG/ML 30 ML VIAL ONE (07:09)
[2020-06-02] MEDS: FUROSEMIDE 40 MG in SYRINGE 0 ML IV SCH ×2 (07:34→18:45)
[2020-06-02] MEDS: DOCUSATE SODIUM 100 MG CAP PO SCH (07:34)
[2020-06-02] MEDS: METOPROLOL SUCC 50MG EXT REL TAB PO SCH (07:35)
[2020-06-02] MEDS: SACUBITRIL-VALSARTAN 24-26 MG TAB PO SCH (07:35)
[2020-06-02] MEDS: ASPIRIN 81 MG ECTAB PO SCH (07:38)
[2020-06-02] MEDS: GABAPENTIN 100 MG CAP PO SCH (07:38)
[2020-06-02] MEDS: MULTIVITAMIN TAB PO SCH (07:39)
[2020-06-02] MEDS: SIMVASTATIN 40 MG TAB PO SCH (07:39)
--- NOTE | 2020-06-02 12:12 | Cardiology Progress Note ---
Date of Service June 02, 2020 Assessment & Plan (1) Ischemic cardiomyopathy: (2) HFrEF (heart failure with reduced ejection fraction): (3) Cellulitis of left lower extremity: (4) Coronary artery disease: 1. Acute systolic heart failure 2. Presumed ischemic cardiomyopathy, EF 25%, apical akinesis, new inferior wall motion abnormality 3. Multivessel CADstatus post PCI to LAD in 2005 4. PADknown bilateral SFA occlusions, severe tibial disease 5. Left lower extremity ulceration and cellulitis 6. Type 2 diabetes Well perfused. No respiratory symptoms. No pulmonary congestion on exam Signs of right heart failure on exam -600 over the last 2 days. Still net positive and weight up 4 kg from admission Renal function stable Okay to proceed with planned amputation later today Continue current IV diuretics. Consider more aggressive diuresis following surgery. Target net -1 to 2 L. Continue current GDMT with Toprol and Entresto Continue aspirin, clopidogrel Continue strict I's and O's, daily BMP. Close heart failure follow-up on discharge. Admission and Anticipated Discharge Date Admission Date: May 25, 2020 Subjective Feeling well. Denies chest pain. Denies shortness of breath. No significant left lower extremity pain at rest. Reports mild bilateral leg swelling. Waiting OR this afternoon for third digit amputation Review of Systems Review of Systems: All systems reviewed & are unremarkable except as noted in HPI & below Physical Exam Physical Exam: General: Comfortable HEENT: Sclerae anicteric Lungs: Clear to auscultation bilaterally, no crackles or wheezes Cardiac: Regular rate and rhythm, JVP approximate 8-9 Vascular: 2+ radial. Normal capillary refill in left great toe Abdomen: Soft, nontender Extremities: 1-2+ lower extremity edema to upper shins bilaterally Psych: Alert orient x3, normal affect and mood Results & Data ([facility]) Vital Signs (Past 12 Hours) Vital Signs Temp Pulse Resp BP Pulse Ox 06/02/20 07:03 97.7 F 90 16 107/66 98 PG Care Time/CCT Total # of Minutes Spent Total Time Spent with Patient: Total time spent is greater than 50% in coordination of care (as documented) at patient's floor/unit and/or counseling p atient: Coding Level of Care Code 55688 Subseq Hosp Care Lvl 3 Diagnoses Ischemic cardiomyopathy I25.5 HFrEF (heart failure with reduced ejection fraction) I50.20 Cellulitis of left lower extremity L03.116 Coronary artery disease I25.10 Coronary Disease-Associated Artery/Lesion type: [place] artery [place] vs. transplanted heart: [place] heart Associated angina: without angina (1) Coronary artery disease Coronary Disease-Associated Artery/Lesion type: [place] artery [place] vs. transplanted heart: [place] heart Associated angina: without angina Qualified Code(s): I25.10 - Atherosclerotic heart disease of [place] coronary artery without angina pectoris
--- NOTE | 2020-06-02 14:47 | Hospitalist Progress Note ---
Date of Service June 02, 2020 Assessment & Plan (1) Ulcer of toe of left foot: Seen by [facility]. Plan for Dr. Brumfield to amputate the toe on Friday, 06/02. - Continue vanc/Zosyn for now - Pain control -> Very comfortable. Using just Tylenol. - Will discuss with Dr. Brumfield after surgery to see how he feels about residual infection which could adjust IV vs. PO and duration of abx. (2) Cellulitis of left lower extremity: Initially with cellulitis of left lower extremity. Was admitted by orthopedic service with plan for surgery on left foot. This was canceled due to the left lower extremity cellulitis. - Also with a right heel ulcer, likely at least Stage 3, present on arrival. - Erythema improved - Plan for surgery now as above -> May also need heel debridement as well. (3) HFrEF (heart failure with reduced ejection fraction): Recently diagnosed. EF on 05/08/2020 showed EF 25 - 30% with global hypokinesis. Catheterization was considered; however, patient deferred and decis ion was made to medically manage. - Cardiology consulted for clearance given possible surgery -> Seen on 05/26 with no recommendations for further testing prior to surgery. - Continue Entresto, beta-maryam, aspirin, statin. - Plavix to hold until after surgery. - Increased Lasix to 40 mg IV BID on 05/30 in discussion with Heart Failure PA. - Cr stable. (4) Ischemic cardiomyopathy: As stated above. (5) Diabetes mellitus, type 2: A1c was 7.4% this admission. - Hold home metformin and glimepiride - Continue gabapentin for nerve pain. - Insulin sliding scale ordered -> Last 24 hour blood sugars generally 110 - 130. (6) PAD (peripheral artery disease): With known right/left mid SFA subtotal occlusion per vascular note on 04/26/2019. - Continue ASA, statin - Hold Plavix until after surgery. (7) Hypertension: BP today is 110/70. - Continue home metoprolol, Entresto - Continue Lasix IV as above (8) Hyperlipidemia: - Continue home simvastatin (9) DVT prophylaxis: Heparin 5,000 units SQ Q12h - Hold until after surgery Admission and Anticipated Discharge Date Admission Date: May 25, 2020 Subjective Doing well today. No major issues. Feels his legs are doing well. Reports no fevers/chills, chest pain, shortness of breath, abdominal pain, nausea, or vomiting. Physical Exam Constitutional: WD/WN, vitals as above Eyes: EOM intact bilaterally; no conjunctival abnormality ENMT: external ear and nose normal, oropharynx normal Neck: trachea midline, no thyromegaly normal visual inspection Respiratory: normal respiratory effort, lungs clear to auscultation no respiratory distress Cardiovascular: RRR, no murmur, no edema Rate/Rhythm: regular rate and regular rhythm Heart Sounds: normal S1 and normal S2 Extremities: + edema (Minimal; more on right than left. Pitting in both thighs though.) Gastrointestinal (Abdomen): Inspection/Auscultation: abdomen normal to inspection; abdomen not distended Musculoskeletal: no cyanosis or clubbing, extremities motor strength 5/5 Skin: no rashes, warm and dry Neurologic: moves all extremities and awake Psychiatric: Orientation: alert, oriented to person and cooperative Results & Data Results & Data ([facility]) Vital Signs (Past 12 Hours) Vital Signs Temp Pulse Resp BP Pulse Ox 06/02/20 07:03 36.5 C 90 16 107/66 98 PG Care Time/CCT Total # of Minutes Spent Total Time Spent with Patient: Total time spent is greater than 50% in coordination of care (as documented) at patient's floor/unit and/or counseling patient: Coding Level of Care Code 95843 Subseq Hosp Care Lvl 3 Diagnoses Ulcer of toe of left foot L97.521 Non-pressure ulcer stage: limited to breakdown of skin Cellulitis of left lower extremity L03.116 HFrEF (heart failure with reduced ejection fraction) I50.20 Ischemic cardiomyopathy I25.5 Diabetes mellitus, type 2 E11.59 Diabetes mellitus assisted insulin use: without termination clerk use Diabetes mellitus complication status: with circulatory complication Diabetes mellitus complication detail: with other circulatory complications PAD (peripheral artery disease) I73.9 Hypertension I10 Hypertension type: essential hypertension Hyperlipidemia E78.5 Hyperlipidemia type: unspecified DVT prophylaxis Z29.9 (1) Ulcer of toe of left foot Non-pressure ulcer stage: limited to breakdown of skin Qualified Code(s): L97.521 - Non-pressure chronic ulcer of other part of left foot limited to br eakdown of skin (2) Diabetes mellitus, type 2 Diabetes mellitus termination clerk insulin use: without assisted use Diabetes mellitus complication status: with circulatory complication Diabetes mellitus complication detail: with other circulatory complications Qualified Code(s): E11.59 - Type 2 diabetes mellitus with other circulatory complications (3) Hypertension Hypertension type: essential hypertension Qualified Code(s): I10 - Essential (primary) hypertension (4) Hyperlipidemia Hyperlipidemia type: unspecified Qualified Code(s): E78.5 - Hyperlipidemia, unspecified
[2020-06-02] MEDS ORDERED: ONDANSETRON INJ 2 MG/ML 2 ML VIAL ONE (15:13)
[2020-06-02] MEDS ORDERED: LIDOCAINE HCL 2% 2 ML VIAL/AMP(20MG/ML) INFIL ONE (15:13)
[2020-06-02] MEDS ORDERED: PROPOFOL IV EMULSION 10 MG/ML 20 ML VIAL IV ONE (15:13)
[2020-06-02] MEDS ORDERED: fentaNYL citrate 100 MCG/2 ML VIAL ONE (15:13)
[2020-06-02] MEDS: VANCOMYCIN HCL 1,000 MG in SODIUM CHLORIDE 0.9% 250 ML IV SCH (15:30)
[2020-06-02] MEDS ORDERED: BUPIVACAINE 0.5 % 5 MG/1 ML MPF 30ML VIAL ONE (15:44)
[2020-06-02] MEDS ORDERED: BACITRACIN INJ 50,000 UNIT VIAL ONE (15:44)
--- NOTE | 2020-06-02 16:01 | History & Physical Bridge Note ---
Date of Service June 02, 2020 History & Physical Bridge Note I have examined the patient, reviewed the History & Physical and in the interval since the performance of the History & Physical I have noted the following changes of clinical significance: no changes noted
--- NOTE | 2020-06-02 16:20 | Anesthesiology Consultation ---
Date of Service June 02, 2020 Covid 19 negative on 05/31/20. Assessment & Plan (1) Encounter for pre-operative examination: Chart Review Chart Review: Acceptable Risk for Surgery (necessary surgery) and Patient NOT seen in Pre Admission Testing Consults Requested none cardiology and medicine are following History Surgery Operation Date: 06/02/20 13:35 Proposed Procedures p Left 3rd Toe Amputation, Possible Left Great Toe Phalanx Amputation - Donnell Brumfield DO s Right Exploration Heel Wound, Possible Incision and Drainage - Donnell Brumfield DO Height/Weight Height: 5 ft 10 in Weight: 77 kg Allergies Allergy/AdvReac Type Severity Reaction Status Date / Time Aminoglycosides Allergy Mild DERMATITIS Verified 05/16/20 14:05 bacitracin Allergy Mild DERMATITIS Verified 05/16/20 14:05 neomycin Allergy Mild DERMATITIS Verified 05/16/20 14:05 polymyxin B Allergy Mild DERMATITIS Verified 05/16/20 14:05 Medications Home Medications Medication Instructions Recorded Confirmed Last Taken multivitamin 1 tab PO QAM 12/02/17 05/25/20 05/25/20 09:00 nitroglycerin 1 tab SUBLINGUAL UD PRN 12/02/17 05/25/20 Unknown acetaminophen [Tylenol Extra 1,000 mg PO Q6H PRN 07/14/18 05/25/20 07/13/18 Strength] vit C-vit C-hadfet-olsu ox-lutein 1 cap PO DAILY cap 09/02/18 05/16/20 Unknown 226 mg-200 unit-5 mg-0.8 mg capsule vitamin B comp and C no.3 15 mg-10 1 cap PO DAILY 09/02/18 05/25/20 05/25/20 09:00 mg-50 mg-5 mg-300 mg capsule metformin 500 mg tablet,extended 500 mg PO BID #180 tab 08/20/19 05/25/20 05/25/20 09:00 release 24 hr metoprolol succinate 100 mg 150 mg PO BID #270 tab 08/20/19 05/25/20 05/25/20 09:00 tablet,extended release 24 hr glimepiride 1 mg tablet 1 mg PO QAM #90 tab 03/15/20 05/25/20 05/25/20 09:00 simvastatin 40 mg tablet 40 mg PO DAILY #90 tab 03/20/20 05/25/20 05/24/20 21:00 aspirin 81 mg PO DAILY 05/07/20 05/25/20 05/24/20 21:00 clopidogrel [Plavix] 75 mg PO DAILY 05/07/20 05/16/20 05/07/20 10:00 diphenhydramine-acetaminophen 1 tab PO HS 05/07/20 05/25/20 05/24/20 21:00 [Tylenol PM Extra Strength] furosemide 40 mg PO QAM 30 Days #30 tab 05/10/20 05/25/20 05/25/20 09:00 gabapentin 100 mg PO BID 30 Days #60 cap 05/10/20 05/16/20 Unknown sacubitril-valsartan [Entresto] 1 tab PO BID 30 Days #60 tab 05/10/20 05/25/20 05/25/20 09:00 Active Medications Generic Name Dose Route Start Last Admin Trade Name Freq PRN Reason Stop Dose Admin Acetaminophen 650 mg 05/25/20 17:25 06/02/20 03:45 Acetaminophen 325 Mg Tab PO 06/24/20 17:24 650 mg Q6H PRN Administration Fever or Headache Aspirin 81 mg 05/26/20 09:00 06/02/20 07:38 Aspirin 81 Mg Ectab PO 06/25/20 08:59 81 mg DAILY CARLO Administration Docusate Sodium 100 mg 05/25/20 21:00 06/02/20 07:34 Docusate Sodium 100 Mg Cap PO 06/24/20 20:59 100 mg BID CARLO Administration Gabapentin 100 mg 05/25/20 21:00 06/02/20 07:38 Gabapentin 100 Mg Cap PO 06/24/20 20:59 100 mg BID CARLO Administration Heparin Sodium (Porcine) 5,000 units 05/30/20 21:00 06/01/20 08:48 Heparin Sod 5,000 Unit/0.5 Ml Vial SQ 06/29/20 20:59 5,000 units Q12 CARLO Administration Vancomycin HCl 1,000 mg/ 270 mls @ 200 mls/hr 05/26/20 08:00 06/02/20 15:30 Sodium Chloride IV 06/05/20 23:59 200 mls/hr Q16H CARLO Administration Protocol Piperacillin Sod/Tazobactam 115 mls @ 28.75 mls/hr 05/28/20 18:00 06/02/20 14:42 Sod 3.375 gm/ Dextrose IV 06/05/20 17:59 Infused Q8H CARLO Infusion Protocol Furosemide 40 mg/ Syringe 4 mls @ 4 mls/min 05/30/20 17:00 06/02/20 07:34 IV 06/29/20 16:59 4 mls/min BID17 CARLO Administration Insulin Aspart 0 units 06/02/20 06:00 06/02/20 12:23 Insulin Aspart 100 Units/Ml 3 Ml Pen SC 07/02/20 05:59 Not Given Q6 CARLO Metoprolol Succinate 150 mg 05/25/20 21:00 06/02/20 07:35 Metoprolol Succ 50mg Ext Rel Tab PO 06/24/20 20:59 150 mg BID CARLO Administration Multivitamins 1 tab 05/26/20 09:00 06/02/20 07:39 Multivitamin Tab PO 06/25/20 08:59 1 tab QAM CARLO Administration Sacubitril/Valsartan 1 tab 05/25/20 21:00 06/02/20 07:35 Sacubitril-Valsartan 24-26 Mg Tab PO 06/24/20 20:59 1 tab BID CARLO Administration Simvastatin 40 mg 05/26/20 09:00 06/02/20 07:39 Simvastatin 40 Mg Tab PO 06/25/20 08:59 40 mg DAILY CARLO Administration NPO Date Last Intake of Fluids: 06/01/20 Time Last Intake of Fluids: 23:55 Date Last Intake of Solids: 06/01/20 Time Last Intake of Solids: 23:55 Past Medical History Medical History 3-vessel coronary artery disease Acute hyponatremia 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 Cataract Closed head injury Compression fx, thoracic spine Diabetes mellitus, type 2 DENIES NEUROPATHY Foot pain Hearing decreased History of prostate cancer 15 YEARS AGO History of SCC (squamous cell carcinoma) of skin Hyperlipidemia Hypertension Hyponatremia Laceration of blood vessel of right index finger, initial encounter Non-pressure chronic ulcer of other part of left foot limited to breakdown of skin 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 Osteoporosis, unspecified PAD (peripheral artery disease) Right knee pain Past Family History Family History Father Hyperlipidemia Denies family history of Colon cancer Ovarian cancer Prostate cancer Myocardial infarction Breast cancer Past Surgical History Surgical History History of cardiac cath 15 YEARS AGO, STENT X1, [facility], [facility] History of herniorrhaphy History of radical prostatectomy History of tonsillectomy Hx of cataract surgery RIGHT Social History Smoking Status: Never smoker Hx Alcohol Use: No Alcohol type: beer alcohol intake frequency: holidays/special occasions only Hx Substance Use: No substance use type: does not use Physical Exam Vital Signs Last Vital Signs Temp 36.7 C 06/02/20 15:55 Pulse 20 L 06/02/20 15:55 Resp 20 06/02/20 15:55 BP 113/66 06/02/20 15:55 Pulse Ox 100 06/02/20 15:55 Testing Laboratory Results 06/02/20 05:18 06/02/20 05:18 PT 13.6 Seconds (9.0-12.0) H 05/25/20 19:42 INR 1.4 (0.9-1.1) H 05/25/20 19:42 APTT 27.6 Seconds (21.0-31.0) 05/25/20 19:42 Hemoglobin A1c 7.4 % (4.5-5.6) H 05/26/20 06:43 Blood Type O Negative 05/25/20 19:42 Antibody Screen NEGATIVE 05/25/20 19:42 05/25/20 19:42 Aerobic Blood Culture - Final Blood No growth in Aerobic bottle after 5 days. Anaerobic Blood Culture - Final No growth in Anaerobic bottle after 5 days. 05/25/20 19:32 Aerobic Blood Culture - Final Blood No growth in Aerobic bottle after 5 days. Anaerobic Blood Culture - Final 06/02/20 06/02/20 06/02/20 15:55 11:50 05:51 POC Glucose 143 H 134 H 133 H Electrocardiogram Date: 05/25/20 SR with PVCs, rate 91, ST and T wave abnormality consider later ischemia, inef erior infarct Chest X-Ray Date: 05/25/20 HISTORY: pre-op COMPARISON: Chest 05/07/2020. FINDINGS: No pneumothorax. There are small bilateral pleural effusions. The heart remains mildly enlarged. There is diffuse interstitial/vascular thickening consistent with mild pulmonary edema. This has slightly progressed. There are bibasilar hazy airspace opacities. This could represent atelectasis or developing pneumonia. IMPRESSION: 1. Interval progression of the mild interstitial pulmonary edema. Small bilateral pleural effusions persist. 2. Hazy bibasilar densities. This favors atelectasis. A pneumonia could also have a similar appearance. ACT 112: Negative or not required by law. Electronically signed by: Jose Carballo M.D. 05/25/2020 8:18 PM Dictated: 05/25/20 2017 Echocardiogram Date: 05/08/20 EF: 25-30 LV Function: dysfunctional Valvular Disease: + MR (mild to moderate) mild to moderate TR
[2020-06-02] MEDS ORDERED: LABETALOL HCL IV 5 MG/ML 20ML IV PRN (16:29)
[2020-06-02] MEDS ORDERED: ePHEDrine sulfate 50 MG/ML AMP IV PRN (16:29)
[2020-06-02] MEDS ORDERED: PHENYLEPHRINE 100MCG/ML 5ML SYR IV PRN (16:29)
[2020-06-02] MEDS ORDERED: ATROPINE SULFATE 0.1 MG/ML 10ML SYR IV PRN (16:29)
[2020-06-02] MEDS ORDERED: fentaNYL citrate 100 MCG/2 ML VIAL IV PRN (16:29)
[2020-06-02] MEDS ORDERED: ONDANSETRON INJ 2 MG/ML 2 ML VIAL IV PRN ×2 (16:29→18:35)
[2020-06-02] MEDS ORDERED: ePHEDrine sulfate 50 MG/ML SYR ONE (17:03)
--- NOTE | 2020-06-02 17:51 | Post Operative Brief Note ---
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 Left third toe partial amputation 3. Flexor Tenotomy 2nd toe 4. Flexor tenotomy 4th Toe 5. Right Heel irrigation and debridement 2.9cm x 3.0cm x 0.2cm diabetic neuropathic ulcer (Bilateral) - Donnell Brumfield DO Surgeon Donnell Brumfield DO Reinforcing Steel Machine Operator Yung Bowser PA-C Estimated Blood Loss 2 Findings Consistent with Post-Op Diagnosis Specimens Aerobic anaerobic Gram stain left third toe Anesthesia Type MAC Regional Complications none Disposition Accompanied Patient To Recovery: No Disposition: Recovery Room
--- NOTE | 2020-06-02 18:13 | Anesthesiology Progress Note ---
Date of Service June 02, 2020 Anesthesia Post Procedure Vital Signs Vital Signs: Temp Pulse Pulse Pulse Resp BP Pulse Ox 06/02/20 18:00 37.3 C 96 H 17 99/58 L 99 06/02/20 17:50 92 H 11 L 101/60 99 06/02/20 17:40 90 11 L 103/60 100 06/02/20 17:33 37.3 C 92 H 15 105/60 99 06/02/20 15:55 36.7 C 90 20 L 20 113/66 100 06/02/20 15:26 36.4 C L 89 16 110/67 99 06/02/20 07:03 36.5 C 90 16 107/66 98 06/01/20 21:52 36.4 C L 92 H 18 104/64 93 06/01/20 21:41 90 103/63 Pain Intensity Left Lower Leg: Pain Intensity: 0 Transfer of Care Handoff Completed per policy Notes Mental Status: alert / awake / arousable Patient Amnestic to Procedure: Yes Nausea / Vomiting: adequately controlled Pain: adequately controlled Airway Patency, RR, SpO2: stable & adequate BP & HR: stable & adequate Hydration State: stable & adequate Anesthetic Complications: no major complications apparent and Pt Satisfied with anesthetic care Notes: The patient is awake and comfortable. His vital signs are stable.
[2020-06-02] MEDS ORDERED: NALOXONE HCL 0.4 MG/1 ML VIAL/CARP IV PRN (18:35)
[2020-06-02] MEDS ORDERED: oxyCODONE HCL IR 5 MG TAB (IMMEDIATE RELEASE) PO PRN (18:35)
[2020-06-02] MEDS ORDERED: bisacodyL 10 MG SUPP PR PRN (18:35)
[2020-06-02] MEDS ORDERED: METOCLOPRAMIDE HCL INJ 5 MG/ML 2 ML VIAL IV PRN (18:35)
[2020-06-02] MEDS ORDERED: MAGNESIUM HYDROXIDE SUSP 30 ML UDC PO PRN (18:35)
[2020-06-02] MEDS ORDERED: SODIUM CHLORIDE 0.9% 1000ML 1,000 ML IV SCH (19:00)
[2020-06-02] MEDS ORDERED: INSULIN ASPART 100 UNITS/ML 3 ML PEN SC SCH (21:00)
[2020-06-02] MEDS ORDERED: SENNA 8.6 MG TAB PO SCH (21:00)
[2020-06-02] MEDS ORDERED: DOCUSATE SODIUM 100 MG CAP PO SCH (21:00)
--- NOTE | 2020-06-02 21:13 | Communication Note ---
Date of Service: June 02, 2020 Code Purple called ~2029. EKG showing polymorphic VTach. Pt noted to be DNR/DNI Code Status. IV Bicarb and MgSO4 given. No other heroic lifesaving measures undertaken. Exam showing no spontaneous breathing, no HR, no pulse via Doppler, no response to painful stimuli, pupils fixed and dilated. Monitor eventually showing arrest. Notified family. Attending present during code. certificate filled out and handed to supercharge repair supervisor. Resident Activity Tracking Resident Involvement: Resident Care Provided Care Provided: Adult [facility]
--- NOTE | 2020-06-03 04:04 | Operative Report (OR) ---
DATE OF OPERATION: 06/02/2020 PREOPERATIVE DIAGNOSES: 1. Left great toe osteomyelitis. 2. Left third toe osteomyelitis. 3. 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 POSTOPERATIVE DIAGNOSES: 1. Left great toe osteomyelitis. 2. Left third toe osteomyelitis. 3. 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 4. Left second toe flexor contracture. 5. Left fourth toe flexor contracture. PROCEDURES: 1. Left great toe partial amputation. 2. Left third toe partial amputation. 3. Flexor tenotomy of the left third toe. 4. Left flexor tenotomy of the fourth toe. 5. Right heel irrigation and debridement, right heel ulceration measuring 2.9 cm x 3.0 cm x 0.2 cm including skin, subcutaneous tissue and fascia. SURGEON: Donnell Brumfield DO. MINERAL INDUSTRY TEACHER: Yung Bowser PA-C who was present for patient positioning, sterile prep and drape, management of retractors and instruments. He was present through the critical portions of the case including wound closure, application of sterile dressing and transport of the patient to recovery. ANESTHESIA: MAC regional. SPECIMENS: Aerobic, anaerobic, Gram stain, left third toe deep bone. DRAINS: None. COMPLICATIONS: None. BLOOD LOSS: 2 mL. PERTINENT HISTORY: This is an 85-year-old gentleman with significant peripheral vascular disease, neuropathy and diabetes mellitus. He presented to orthopedic clinic late last week, noted to have madison red cellulitis, erythema with a slight drainage of his left great toe and third toe. He was under the care of Dr. Escalera and it was felt he would benefit from IV antibiotics. The patient was then admitted to the hospitalist service, placed on IV antibiotics to treat his severe cellulitis and stabilize the soft tissue. Once he was improved and stabilized he was then scheduled for surgery as indicated for his known osteomyelitis of the great toe and third toe of the left foot and for the right foot he developed a pressure ulceration full thickness with necrosis of the posterior right heel. The patient was scheduled for surgery as indicated. All potential risks, benefits, complications, alternatives, rehab, potential for incomplete relief of symptoms, need for further surgery, DVT, PE, , persistent pain, swelling, scarring, weakness, neurovascular injury, wound complications, need for further amputation and debridement were discussed with the patient and his . They decided to proceed with procedure as indicated. DESCRIPTION OF PROCEDURE: The patient was taken to the operative suite, placed supine on the operating table. After reviewing consent and identification of proper operative site, the patient was sedated and bilateral lower extremities were then sterilely prepped and draped in the usual fashion. Next, after surgical timeout was performed, a partial exsanguination was performed to the left foot from the mid foot extending proximally with a 4-inch Esmarch bandage, placed over a sterile surgical towel for tourniquet effect. Next, digital blocks were performed of the great toe and the third toe with 0.5% Marcaine plain. Next, a 15 blade scalpel was used to excise the distal aspect of the left great toe with a modified racquet-shaped incision beginning in the interphalangeal joint of the left great toe. Dorsal flap was made slightly shorter than the plantar flap. Incision was made through the skin and subcutaneous tissue and extensor all the way through the dorsal portion of the joint capsule, it was extended medially and laterally and in the mid lateral line and then the plantar flap was extended as far distally as reasonable; however, there is necrotic tissue and open ulceration with purulent discharge. Therefore, this was excised. The distal phalanx was then shelled out of the soft tissue envelope maintaining as much soft tissue coverage as possible. This was passed off as specimen. Next, the flap was then revised with a 15 blade scalpel for low tension closure and then the distal aspect of the proximal phalanx was tested with a 15 blade scalpel and noted to be markedly softened consistent with necrotic bone features. Therefore, a bone biting rongeur was used to resect the proximal phalanx of the great toe just proximal to the metaphyseal flare at the distal aspect of the phalanx. This was then contoured with a regular rongeur and then irrigated until clear with a pulse lavage and then closed with a nylon suture, full thickness. Next the third toe was then identified and the gangrenous necrotic distal aspect of the third toe was identified and then a 15 blade scalpel was used to transect the dorsal aspect of the toe just proximal to the metaphyseal flare of the middle phalanx. This was through the skin and subcutaneous tissue, joint capsule and extensor. A slightly longer plantar flap was extended circumferentially around the plantar aspect of the distal third toe. A purulent discharge is noted. This was cultured, aerobic, anaerobic, Gram stain. The amputated portion of the third toe was then passed off and the bone biting rongeur was then used to resect proximal phalanx of the left third toe down to the stable portion of bone where it did not appear to be grossly necrotic. A small margin was left to ensure resection of all infected tissue. This was then copiously irrigated with sterile saline with pulse lavage. The flap was then revised with a 15 blade scalpel and then a low tension closure was performed over nylon. Next, severe flexor contractures noted to the 2nd and 4th toes and then decision was made to perform flexor tenotomies due to hypertrophic callusing of the second and fourth toe with pre-ulceration conditions. The 15 blade was then used to incise the skin at the bases of the 2nd and 4th plantar toes respectively. Careful dissection was performed with tenotomy scissors to expose the flexor tendons of the 2nd and 4th toes respectively and then transected using a 15 blade scalpel, releasing the flexor contractures successfully. Next, these incision sites were copiously irrigated with sterile saline and then closed using nylon suture. Next, a sterile compressive dressing was applied to the left foot, overwrapped with an Kevyn wrap. Next, tourniquet was released and attention was then directed toward the right heel, which point the site around the ulceration was then injected with 0.5% Marcaine plain for pain control. There was no tourniquet used on the right side. A 15 blade scalpel was used to sharply debride the skin, subcutaneous fat tissue and fascia with a 15 blade scalpel along the entirety of the right heel, 2.9 cm x 3.0 cm x 0.2 cm diabetic neuropathic ulceration. All necrotic appearing tissue was excised. This was then copiously irrigated with pulsatile lavage and saline with bacitracin until clear and then a sterile compressive dressing consisting of Xeroform gauze, sterile 4 x 4's, cast padding, ABD pad and a 4-inch Kevyn wrap was then applied. After sterile dressings had been applied, patient was awakened and then taken to recovery in stable condition. I attest to the content of the Intraoperative Record and any orders documented therein. Any exception s are noted below.
--- NOTE | 2020-06-03 07:10 | Discharge Summary ---
Date of Service June 03, 2020 Principal Diagnosis Ventricular tachycardia Discharge Exam No pulse, no pupillary reaction, no breathing Psychiatric Orientation: + not alert Discharge Data Allergies Allergy/AdvReac Type Severity Reaction Status Date / Time Aminoglycosides Allergy Mild DERMATITIS Verified 05/16/20 14:05 bacitracin Allergy Mild DERMATITIS Verified 05/16/20 14:05 neomycin Allergy Mild DERMATITIS Verified 05/16/20 14:05 polymyxin B Allergy Mild DERMATITIS Verified 05/16/20 14:05 Consultations 05/25/20 17:25 Consult Internal Medicine Routine 05/25/20 19:08 Consult Cardiology Routine 05/29/20 08:27 Consult Orthopedic Surgery Routine Procedures Performed Operation Date: 06/02/20 13:35 Actual Procedures p Left 3rd and 1st Toe Amputation, Flexor Tenotomy 2nd and 4th Toe, Left Great Toe Phalanx Amputation, Right Heel Incision and Drainage, 2.9cm x 3.0cm, 0.2cm(Bilateral) - Donnell Brumfield, Ordered Studies 06/01/20 14:16 MR ankle RT wo/w con Routine MR foot RT wo/w con Urgent 06/01/20 14:40 US venous doppler LE RT Routine Hospital Course (1) Ventricular arrhythmia: Went into a polymorphic ventricular tachycardia at around 8:30pm. Due to DNR/DNI status, medications were attempted, but no cardioversion or shock. - Time of : 20:52 (2) Ulcer of toe of left foot: Seen by [facility]. Plan for Dr. Brumfield to amputate the toe on Friday, 06/02. - Continue vanc/Zosyn for now - Pain control -> Very comfortable. Using just Tylenol. - Will discuss with Dr. Brumfield after surgery to see how he feels about residual infection which could adjust IV vs. PO and duration of abx. (3) Cellulitis of left lower extremity: Initially with cellulitis of left lower extremity. Was admitted by orthopedic service with plan for surgery on left foot. This was canceled due to the left lower extremity cellulitis. - Also with a right heel ulcer, likely at least Stage 3, present on arrival. - Erythema improved - Plan for surgery now as above -> May also need heel debridement as well. (4) HFrEF (heart failure with reduced ejection fraction): Recently diagnosed. EF on 05/08/2020 showed EF 25 - 30% with global hypokinesis. Catheterization was considered; however, patient deferred and decision was made to medically manage. - Cardiology consulted for clearance given possible surgery -> Seen on 05/26 with no recommendations for further testing prior to surgery. - Continue Entresto, beta-maryam, aspirin, statin. - Plavix to hold until after surgery. - Increased Lasix to 40 mg IV BID on 05/30 in discussion with Heart Failure PA. - Cr stable. (5) Ischemic cardiomyopathy: As stated above. (6) Diabetes mellitus, type 2: A1c was 7.4% this admission. - Hold home metformin and glimepiride - Continue gabapentin for nerve pain. - Insulin sliding scale ordered -> Last 24 hour blood sugars generally 110 - 130. (7) PAD (peripheral artery disease): With known right/left mid SFA subtotal occlusion per vascular note on . - Continue ASA, statin - Hold Plavix until after surgery. (8) Hypertension: BP today is 110/70. - Continue home metoprolol, Entresto - Continue Lasix IV as above (9) Hyperlipidemia: - Continue home simvastatin (10) DVT prophylaxis: Heparin 5,000 units SQ Q12h - Hold until after surgery Total Time Total Time Spent Total Time Spent (In Minutes): 35 Discharge Plan Discharge Items Patient Disposition: Coding Level of Care Code D/C Day Management >30 mins Diagnoses Ventricular arrhythmia I49.9 Ulcer of toe of left foot L97.521 Non-pressure ulcer stage: limited to breakdown of skin Cellulitis of left lower extremity L03.116 HFrEF (heart failure with reduced ejection fraction) I50.20 Ischemic cardiomyopathy I25.5 Diabetes mellitus, type 2 E11.59 Diabetes mellitus custodial insulin use: without middle or intermediate school principal use Diabetes mellitus complication status: with circulatory complication Diabetes mellitus complication detail: with other circulatory complications PAD (peripheral artery disease) I73.9 Hypertension I10 Hypertension type: essential hypertension Hyperlipidemia E78.5 Hyperlipidemia type: unspecified DVT prophylaxis Z29.9
--- NOTE | 2020-06-03 07:20 | Death Pronouncement Note ---
Date of Service June 03, 2020 Pronouncement Note Admission Date Admission Date: May 25, 2020 Date and Time of Date of : 06/02/20 Time of : 20:52 PCOD Preliminary cause of : Ventricular tachycardia Contributing Factors (1) Ventricular arrhythmia: (2) Ulcer of toe of left foot: (3) Cellulitis of left lower extremity: (4) HFrEF (heart failure with reduced ejection fraction): (5) Ischemic cardiomyopathy: (6) Diabetes mellitus, type 2: (7) PAD (peripheral artery disease): (8) Hypertension: (9) Hyperlipidemia: (10) DVT prophylaxis: Hospital Course Hospital Course: Went into a polymorphic ventricular tachycardia at around 8:30pm. Due to DNR/DNI status, medications were attempted, but no cardioversion or shock. - Time of : 20:52 Additional Data Confirmation of : no pulse, no respirations, no heart sounds and pupils fixed and dilated Family: contacted Attending physician: Nato Christine MD Was code activated?: Yes Autopsy requested?: No cloth colors examiner notified?: No Organ bank notified?: No Advance directives: Yes Coding Level of Care Code D/C Day Management >30 mins Diagnoses Ventricular arrhythmia I49.9 Ulcer of toe of left foot L97.521 Non-pressure ulcer stage: limited to breakdown of skin Cellulitis of left lower extremity L03.116 HFrEF (heart failure with reduced ejection fraction) I50.20 Ischemic cardiomyopathy I25.5 Diabetes mellitus, type 2 E11.59 Diabetes mellitus longterm insulin use: without ad terminal makeup operator use Diabetes mellitus complication status: with circulatory complication Diabetes mellitus complication detail: with other circulatory complications PAD (peripheral artery disease) I73.9 Hypertension I10 Hypertension type: essential hypertension Hyperlipidemia E78.5 Hyperlipidemia type: unspecified DVT prophylaxis Z29.9
[2020-06-03] MEDS ORDERED: VANCOMYCIN TROUGH ONE (07:30)
[2020-06-03] MEDS ORDERED: MULTIVITAMIN TAB PO SCH (09:00)
--- NOTE | 2020-06-07 12:43 | Coding Query ---
CODING QUERY To promote full compliance with coding requirements relating to patient care, provider participation is requested in all cases of quarry extraction worker uncertainty. Please assist us with the question(s) below: Coding Question(s): There is documentation of HFrEF that equates to Systolic CHF and there is documentation of Chronic CHF on the 05/25/20 Hospitalist Consultation and the Hospitalist Progress Note as on 05/31/20 documents, " Increased Lasix to 40 mg IV BID in discussion with Heart Failure PA who feels he has slight hyperovolemia, and then beginning on 05/30/20 on the Heart Failure Progress Notes and Cardiology Progress Notes there is documentation of Acute Systolic Congestive Heart Failure. Please specify below, in your clinical opinion, regarding CHF. ( x ) Chronic Systolic CHF that became exacerbated to Acute Systolic CHF during the admission ( ) Chronic Systolic CHF with NO Acute Exacerbation ( ) Acute Systolic CHF present on admission ( ) Other: Please Specify Physician's Response(s): Thank you Molly Edouard Principal Diagnosis: "that condition established after study, to be chiefly responsible for occasioning the admission of the patient to the hospital for care." Co-Existing Principal Diagnosis: "when two or more diagnoses equally meet the criteria for principal diagnosis as determined by the circumstances of admission, diagnostic work up, and/or therapy provided, and the Alphabetic Index, Tabular List, or another coding guideline does not provide sequencing direction, any one of the diagnoses may be sequenced first." "When the physician has documented what appears to be a current diagnosis in the body of the record, but has not included the diagnosis in the final diagnostic statement, the physician should be asked whether the diagnosis should be added." ([facility] 2 QTR90. p3-4) MIGUEL
--- NOTE | 2020-06-07 12:58 | Coding Query ---
CODING QUERY To promote full compliance with coding requirements relating to patient care, provider participation is requested in all cases of trim master operator uncertainty. Please assist us with the question(s) below: Coding Question(s): There is documentation in the record, beginning on 05/30 PN of, "Also with a left heel ulcer, likely at least Stage 3, present on arrival", and then beginning on 05/31 PN is documentation of, "Also with a right heel ulcer, likely at least Stage 3, present on arrival", and the right heel ulcer documentation is documented through the rest of the record. The 06/02/20 Anesthesia Record documents Right heel decubitus, and the 06/02/20 Operative Report documents Right heel 2.9 cm x 3.0 cm x 0.2 cm diabetic neuropathic ulceration of the heel but also documents in the pertinent history, "Once he was improved and stabilized he was then scheduled for surgery as indicated for his known osteomyelitis of the great toe and third toe of the left foot and for the right foot he developed a pressure ulceration full thickness with necrosis of the posterior right heel". Your help is needed to clarify the Right Heel Ulcer and to verify the POA status. Please clarify below, in your clinical opinion, regarding the Right Heel Ulcer. ( ) Right Heel Ulcer is Decubitus/Pressure Ulcer, likely at least Stage 3. Please specify POA status below: ( ) POA ( ) Not POA ( ) Undetermined if POA ( ) Right Heel Ulcer is Both Decubitus/Pressure Ulcer, likely at least Stage 3 and Diabetic Ulcer. Please specify POA status below: ( x ) POA ( ) Not POA ( ) Undetermined if POA ( ) Right Heel Ulcer is NOT Decubitus/Pressure Ulcer, it is Diabetic Ulcer. Please specify POA status below: ( ) POA ( ) Not POA ( ) Undetermined if POA ( ) Right Heel Ulcer is Other: Please Specify . Please specify POA status below: ( ) POA ( ) Not POA ( ) Undetermined if POA Physician's Response(s): Thank you Molly Edouard Principal Diagnosis: "that condition established after study, to be chiefly responsible for occasioning the admission of the patient to the hospital for care." Co-Existing Principal Diagnosis: "when two or more diagnoses equally meet the criteria for principal diagnosis as determined by the circumstances of admission, diagnostic work up, and/or therapy provided, and the Alphabetic Index, Tabular List, or another coding guideline does not provide sequencing direction, any one of the diagnoses may be sequenced first." "When the physician has documented what appears to be a current diagnosis in the body of the record, but has not included the diagnosis in the final diagnostic statement, the physician should be asked whether the diagnosis should be added." ([facility] 2 QTR90. p3-4) MIGUEL
--- NOTE | 2020-06-09 08:09 | Coding Query ---
CODING QUERY To promote full compliance with coding requirements relating to patient care, provider participation is requested in all cases of army officer uncertainty. Please assist us with the question(s) below: Coding Question(s): Cellulitis is documented in the record as well as Diabetic Foot Ulcers and Osteomyelitis and Necrosis, with 05/29/20 Progress Note documenting, "Given that erythema is improving, will reconsult ortho for possible amputation as there appears to be a neccotic toe. Awaiting input: dylon likely need amuptation prior to discharge as this is likely contributing to his cellulitis". We are to assume a causal relationship between Diabetes and Osteomyelitis and Necrosis. Please specify below, in your clinical opinion, regarding the Cellulitis. ( ) Cellulitis is likely due, at least in part, to Diabetes ( x ) Cellulitis is Not due to Diabetes ( ) Cellulitis is Other: Please Specify Physician's Response(s): Thank you Molly Edouard Principal Diagnosis: "that condition established after study, to be chiefly responsible for occasioning the admission of the patient to the hospital for care." Co-Existing Principal Diagnosis: "when two or more diagnoses equally meet the criteria for principal diagnosis as determined by the circumstances of admission, diagnostic work up, and/or therapy provided, and the Alphabetic Index, Tabular List, or another coding guideline does not provide sequencing direction, any one of the diagnoses may be sequenced first." "When the physician has documented what appears to be a current diagnosis in the body of the record, but has not included the diagnosis in the final diagnostic statement, the physician should be asked whether the diagnosis should be added." ([facility] 2 QTR90. p3-4) MIGUEL
== END 2020-06-02 22:54 | disposition expired | DRG 570 ==
LOC: 3W 15:55 → SUATTDRO 15:55